=== PATIENT | female | born 1950 | race Caucasian/White ===

== ENCOUNTER 2017-04-28 07:23 | Observation (INO) ==
[2017-04-28] MEDS ORDERED: 0.9 % Sodium Chloride 1,000 ML IVC ONE (07:26)
--- NOTE | 2017-04-28 07:29 | Emergency Department Note ---
Disposition Clinical Impression: Near syncope, Bradycardia Disposition: Admitted As Inpatient Condition: Good General Adult HPI - General Chief complaint: ED Neuro Symptoms/Deficit Stated complaint: tingling hands/feet Time Seen by Provider: 04/28/17 07:25 Nursing Notes Reviewed: Yes Vital Signs Reviewed: Yes - Related Data Home Medications Medication Instructions Recorded Confirmed Carvedilol [Coreg] 25 mg PO DAILY 04/28/17 04/28/17 Escitalopram [Lexapro] 20 mg PO DAILY 04/28/17 04/28/17 Omeprazole [PriLOSEC] 20 mg PO DAILY 04/28/17 04/28/17 Allergies Allergy/AdvReac Type Severity Reaction Status Date / Time aspirin Allergy Hives Verified 04/28/17 10:16 Penicillins [PCN] Allergy Hives Verified 04/28/17 10:16 Past Medical History - Past Medical History Medical history: Reports: asthma Psychiatric history: Reports: no psych history - Social History Smoking Status: Never smoker Smokeless Tobacco Status: No Alcohol use: Reports: none Drug use: Reports: none Course Vital Signs Temperature 97.4 F L 04/28/17 07:26 Pulse Rate 51 04/28/17 07:26 Respiratory Rate 16 04/28/17 07:26 Blood Pressure 129/65 04/28/17 07:26 O2 Sat by Pulse Oximetry 94 04/28/17 07:26 Temperature 97.4 F L 04/28/17 07:26 Pulse Rate 58 04/28/17 10:05 Respiratory Rate 16 04/28/17 10:13 Blood Pressure 166/86 04/28/17 10:13 O2 Sat by Pulse Oximetry 94 04/28/17 10:05 Oxygen Delivery Oxygen Delivery Room Air Medical Decision Making - MDM Narrative Medical decision making narrative: I examined this patient and my medical decision-making was reviewed with the FROG FARMER/PA/Advanced Practice Nurse/Resident Physician. I agree with the documented findings, disposition and treatment plan as described except to the extent set forth below. Patient was seen on arrival by EMS with Dr. Craft and myself, I agree with his evaluation and management plan, supervise care the patient's stay. She presents from work today she has had some tingling feeling going on her left side but she says also on her other side is benign on for a couple days. Had some fluttering noted on her EKG and patient admits to that but denies chest pain. She is up and ambulatory now. We will do a further exam EKG she may need some imaging and lab work. We will reassess her and the determine best workup. She is in agreement with this plan. 0800 hrs.: Patient was able to walk to the bathroom she said she felt a little weak. When she sat back down should her heart rate went into the 40s. She has had an echocardiogram in the past which looked normal. She does not remember having this done. She is also per lead a thyroid workup cannot find results of that. We will workup here most likely for admission for near syncope and symptomatically bradycardia. She is in agreement with this plan. Chest X-Ray 04/28/17 07:29 IMPRESSION: The chest appears clear without acute cardiopulmonary process. Stable appearing small to moderate-sized hiatal hernia. D/ / Adrian Mo MD / Adrian Mo MD Interpreting Provider: Adrian Mo MD Head CT 04/28/17 07:36 IMPRESSION: 1. No acute intracranial abnormality. D/ / Jacob Zapien MD / Jacob Zapien MD Interpreting Provider: Jacob Zapien MD - Lab Data Result diagrams: 04/28/17 07:53 04/28/17 07:53 Lab Results 04/28/17 04/28/17 04/28/17 Range/Units 07:37 07:53 07:53 WBC 11.4 H (4.3-11.1) K/mcL RBC 5.25 H (3.82-4.97) M/mcL Hgb 14.8 (11.5-15.4) g/dL Hct 45.9 H (35.3-44.9) % MCV 87.4 (83.0-100.0) fL MCH 28.2 (28.0-33.3) pg MCHC 32.2 (31.6-35.5) g/dL RDW 14.2 (11.5-14.5) % Plt Count 320 (140-400) K/mcL MPV 11.0 (9.4-12.4) fL Immature Gran % 0.3 (0-4) % Seg Neutrophils % 61.5 % Lymphocytes % 27.9 % Monocytes % 7.0 % Eosinophils % 2.8 % Basophils % 0.5 % Neutrophils # 7.0 (1.6-8.9) K/mcL Lymphocytes # 3.2 (0.6-4.6) K/mcL Monocytes # 0.8 (0.0-1.3) K/mcL Eosinophils # 0.3 (0.0-0.6) K/mcL Basophils # 0.1 (0.0-0.2) K/mcL PT 12.4 H (9.4-12.1) Seconds INR 1.1 APTT 27.4 (26.0-36.0) Seconds Sodium (136-145) mEq/L Potassium (3.5-4.5) mEq/L Chloride (98-109) mEq/L Carbon Dioxide (19-29) mEq/L BUN (7-20) mg/dL Creatinine (0.57-1.11) mg/dL Est GFR ( Amer) (> 60) Est GFR (Non-Af Amer) (> 60) BUN/Creatinine Ratio (6-26) Glucose (70-99) mg/dL POC Glucose 122 H (58-89) Calculated Osmolality (280-300) Calcium (8.6-10.8) mg/dL Magnesium (1.6-2.6) mg/dL Troponin I (0-0.03) ng/mL TSH (0.350-4.840) mcIU/mL 04/28/17 04/28/17 Range/Units 07:53 07:53 WBC (4.3-11.1) K/mcL RBC (3.82-4.97) M/mcL Hgb (11.5-15.4) g/dL Hct (35.3-44.9) % MCV (83.0-100.0) fL MCH (28.0-33.3) pg MCHC (31.6-35.5) g/dL RDW (11.5-14.5) % Plt Count (140-400) K/mcL MPV (9.4-12.4) fL Immature Gran % (0-4) % Seg Neutrophils % % Lymphocytes % % Monocytes % % Eosinophils % % Basophils % % Neutrophils # (1.6-8.9) K/mcL Lymphocytes # (0.6-4.6) K/mcL Monocytes # (0.0-1.3) K/mcL Eosinophils # (0.0-0.6) K/mcL Basophils # (0.0-0.2) K/mcL PT (9.4-12.1) Seconds INR APTT (26.0-36.0) Seconds Sodium 139 (136-145) mEq/L Potassium 3.9 (3.5-4.5) mEq/L Chloride 107 (98-109) mEq/L Carbon Dioxide 21 (19-29) mEq/L BUN 26 H (7-20) mg/dL Creatinine 0.98 (0.57-1.11) mg/dL Est GFR ( Amer) > 60 (> 60) Est GFR (Non-Af Amer) 56 L (> 60) BUN/Creatinine Ratio 27 H (6-26) Glucose 117 H (70-99) mg/dL POC Glucose (58-89) Calculated Osmolality 294 (280-300) Calcium 9.4 (8.6-10.8) mg/dL Magnesium 1.6 (1.6-2.6) mg/dL Troponin I 0.01 (0-0.03) ng/mL TSH 2.299 (0.350-4.840) mcIU/mL
[2017-04-28] MEDS ORDERED: Ipratropium/Albuterol Neb 3 ML IH ONE (07:49)
--- NOTE | 2017-04-28 07:52 | Emergency Department Note ---
Disposition Clinical Impression: Near syncope, Bradycardia Disposition: Admitted As Inpatient Condition: Good Referrals: Bruce Bolden MD [Primary Care Provider] - Forms: ED Satisfaction Letter General Adult HPI - General Chief complaint: ED Neuro Symptoms/Deficit Stated complaint: tingling hands/feet Time Seen by Provider: 04/28/17 07:25 Source: patient, EMS Limitations: no limitations Nursing Notes Reviewed: Yes Vital Signs Reviewed: Yes - History of Present Illness HPI Narrative: Patient here for evaluation of dizziness and near syncope. Patient states that she has been dealing with multiple complaints over the last several months or which include some left-sided paresthesias as well as shortness of breath with exertion. She is followed up with her family physician and they have been unable to find an explanation for all of these. She was working today when she felt very weak in her legs bilaterally. She is going to pass out. Squad was called and she was brought to the emergency department for further evaluation. Upon arrival the patient needed to use the bathroom for an episode of diarrhea. She was placed back on the monitor she was found to be bradycardic with a heart rate in the mid 40s. Patient states that she was having similar symptoms as to previously. Dizziness and lightheadedness occurred on her way back from the bathroom. Patient's diarrhea has only been for second episode and described as loose stool that is not bright red or black in nature. Pain Scale: 0 - Related Data Home Medications Medication Instructions Recorded Confirmed Carvedilol [Coreg] 25 mg PO DAILY 04/28/17 04/28/17 Escitalopram [Lexapro] 20 mg PO DAILY 04/28/17 04/28/17 Omeprazole [PriLOSEC] 20 mg PO DAILY 04/28/17 04/28/17 Allergies Allergy/AdvReac Type Severity Reaction Status Date / Time aspirin Allergy Hives Verified 04/28/17 08:48 Penicillins [PCN] Allergy Hives Verified 04/28/17 08:48 Review of Systems: CONSTITUTIONAL: No weight loss, fever, chills, weakness or fatigue. HEENT: Eyes: No visual changes. Ears, Nose, Throat: No hearing loss, difficulty talking or unable to swallow. SKIN: No rash or itching. CARDIOVASCULAR: near syncope. dizziness. No chest pain, chest pressure or chest discomfort. No palpitations or edema. RESPIRATORY: shortness of breath with exertion. No cough or sputum. GASTROINTESTINAL: No anorexia, nausea, vomiting or diarrhea. No abdominal pain or blood. GENITOURINARY: No burning on urination or hematuria. NEUROLOGICAL: No headache,paralysis, ataxia, numbness or tingling in the extremities. No change in bowel or bladder control. MUSCULOSKELETAL: No muscle pain, back pain, joint pain or stiffness. Past Medical History - Past Medical History Medical history: Reports: asthma Psychiatric history: Reports: no psych history - Social History Smoking Status: Never smoker Smokeless Tobacco Status: No Alcohol use: Reports: none Drug use: Reports: none Physical Exam General appearance: NAD, conversant Eyes: anicteric sclerae, moist conjunctivae; PERRL HENT: Atraumatic; oropharynx clear with moist mucous membranes and no mucosal ulcerations Neck: Normal inspection; Trachea midline; FROM, supple Lungs: CTA, with normal respiratory effort and no intercostal retractions CV: RRR, no MRGs Abdomen: Soft, non-tender; no rebound or gaurding Extremities: No peripheral edema or extremity lymphadenopathy Skin: Normal temperature; no rash, ulcers or lesions Psych: Appropriate mood and affect Neuro: alert and oriented to person, place and time - General Limitations: no limitations General appearance: alert, in no apparent distress - Expanded Neurological Exam Patient oriented to: Present: person, place, time Speech: Present: fluid speech Cranial nerves: EOM function (II, III, IV, ): Normal, facial sensation (V): Normal, facial palsy (VII): Normal, gag reflex (IX): Normal, spinal accessory function (XI): Normal, tongue deviation (XII): Normal Cerebellar function: finger to nose: Normal, heel to murcia: Normal Cerebellar function: normal gait Motor strength - LUE: 5/5 Motor strength - RUE: 5/5 Motor strength - LLE: 5/5 Motor strength - RLE: 5/5 Sensory exam upper extremity: light touch: Abnormal Left Sensory exam lower extremity: light touch: Abnormal Left Coma Scale Eye Opening: Spontaneous Coma Scale Motor Response: Obeys Commands Coma Scale Verbal Response: Oriented Coma Scale Total: 15 - Psychiatric Psychiatric exam: Present: normal affect, normal mood - Skin Skin exam: Present: warm, dry Course - Reevaluation(s) Reevaluation #1: Patient's workup which had been extended to include all of her chief complaints has been relatively unfruitful except for her EKG showing sinus bradycardia and having a bradycardic episode replication of her symptoms. Paresthesias cannot be related to any sort of intracranial abnormality on CT. Patient states she has not had any previous cardiac workup. Patient will be admitted to the hospital for further evaluation of near syncopal episode as well as associated bradycardia. - Consultations Consultation #1: Discussed with Dr. Larsen. Patient accepted for admission. Vital Signs Temperature 97.4 F L 04/28/17 07:26 Pulse Rate 51 04/28/17 07:26 Respiratory Rate 16 04/28/17 07:26 Blood Pressure 129/65 04/28/17 07:26 O2 Sat by Pulse Oximetry 94 04/28/17 07:26 Temperature 97.4 F L 04/28/17 07:26 Pulse Rate 51 04/28/17 07:26 Respiratory Rate 16 04/28/17 07:26 Blood Pressure 129/65 04/28/17 07:26 O2 Sat by Pulse Oximetry 94 04/28/17 07:26 Oxygen Delivery Oxygen Delivery Room Air Medical Decision Making - Medical Records Medical records reviewed: Yes I reviewed the patient's medical records. - Lab Data Lab results reviewed: Yes I reviewed the patient's lab results. Result diagrams: 04/28/17 07:53 04/28/17 07:53 Lab Results 04/28/17 04/28/17 04/28/17 Range/Units 07:37 07:53 07:53 WBC 11.4 H (4.3-11.1) K/mcL RBC 5.25 H (3.82-4.97) M/mcL Hgb 14.8 (11.5-15.4) g/dL Hct 45.9 H (35.3-44.9) % MCV 87.4 (83.0-100.0) fL MCH 28.2 (28.0-33.3) pg MCHC 32.2 (31.6-35.5) g/dL RDW 14.2 (11.5-14.5) % Plt Count 320 (140-400) K/mcL MPV 11.0 (9.4-12.4) fL Immature Gran % 0.3 (0-4) % Seg Neutrophils % 61.5 % Lymphocytes % 27.9 % Monocytes % 7.0 % Eosinophils % 2.8 % Basophils % 0.5 % Neutrophils # 7.0 (1.6-8.9) K/mcL Lymphocytes # 3.2 (0.6-4.6) K/mcL Monocytes # 0.8 (0.0-1.3) K/mcL Eosinophils # 0.3 (0.0-0.6) K/mcL Basophils # 0.1 (0.0-0.2) K/mcL PT 12.4 H (9.4-12.1) Seconds INR 1.1 APTT 27.4 (26.0-36.0) Seconds Sodium (136-145) mEq/L Potassium (3.5-4.5) mEq/L Chloride (98-109) mEq/L Carbon Dioxide (19-29) mEq/L BUN (7-20) mg/dL Creatinine (0.57-1.11) mg/dL Est GFR ( Amer) (> 60) Est GFR (Non-Af Amer) (> 60) BUN/Creatinine Ratio (6-26) Glucose (70-99) mg/dL POC Glucose 122 H (58-89) Calculated Osmolality (280-300) Calcium (8.6-10.8) mg/dL Magnesium (1.6-2.6) mg/dL Troponin I (0-0.03) ng/mL 04/28/17 04/28/17 Range/Units 07:53 07:53 WBC (4.3-11.1) K/mcL RBC (3.82-4.97) M/mcL Hgb (11.5-15.4) g/dL Hct (35.3-44.9) % MCV (83.0-100.0) fL MCH (28.0-33.3) pg MCHC (31.6-35.5) g/dL RDW (11.5-14.5) % Plt Count (140-400) K/mcL MPV (9.4-12.4) fL Immature Gran % (0-4) % Seg Neutrophils % % Lymphocytes % % Monocytes % % Eosinophils % % Basophils % % Neutrophils # (1.6-8.9) K/mcL Lymphocytes # (0.6-4.6) K/mcL Monocytes # (0.0-1.3) K/mcL Eosinophils # (0.0-0.6) K/mcL Basophils # (0.0-0.2) K/mcL PT (9.4-12.1) Seconds INR APTT (26.0-36.0) Seconds Sodium 139 (136-145) mEq/L Potassium 3.9 (3.5-4.5) mEq/L Chloride 107 (98-109) mEq/L Carbon Dioxide 21 (19-29) mEq/L BUN 26 H (7-20) mg/dL Creatinine 0.98 (0.57-1.11) mg/dL Est GFR ( Amer) > 60 (> 60) Est GFR (Non-Af Amer) 56 L (> 60) BUN/Creatinine Ratio 27 H (6-26) Glucose 117 H (70-99) mg/dL POC Glucose (58-89) Calculated Osmolality 294 (280-300) Calcium 9.4 (8.6-10.8) mg/dL Magnesium 1.6 (1.6-2.6) mg/dL Troponin I 0.01 (0-0.03) ng/mL - Radiology Data Radiology results reviewed: Yes I reviewed the patient's radiology results. - EKG Data EKG #1 EKG attestation: Yes I reviewed and interpreted this EKG. EKG results narrative: EKG shows sinus bradycardia with ventricular rate of 50 bpm. DC interval 149. QRS 95. QTC 428. Patient has no significant ST elevations or depressions. Patient has no findings changed from previous EKG of 10/04/2016
[2017-04-28 08:00] LABS: Basophils # 0.1 K/mcL (0.0-0.2); Basophils % 0.5 %; Eosinophils # 0.3 K/mcL (0.0-0.6); Eosinophils % 2.8 %; Hematocrit 45.9 % (35.3-44.9); Hemoglobin 14.8 g/dL (11.5-15.4); Immature Granulocytes % 0.3 % (0-4); Lymphocytes # 3.2 K/mcL (0.6-4.6); Lymphocytes % 27.9 %; Mean Corpuscular HGB Conc 32.2 g/dL (31.6-35.5); Mean Corpuscular Hemoglobin 28.2 pg (28.0-33.3); Mean Corpuscular Volume 87.4 fL (83.0-100.0); Monocytes # 0.8 K/mcL (0.0-1.3); Platelet Count 320 K/mcL (140-400); Red Blood Count 5.25 M/mcL (3.82-4.97); Red Cell Distribution Width 14.2 % (11.5-14.5); Segmented Neutrophils % 61.5 %
[2017-04-28 08:06] LABS: INR 1.1; Prothrombin Time 12.4 Seconds (9.4-12.1)
[2017-04-28 08:08] LABS: Activated Partial Thrombo Time 27.4 Seconds (26.0-36.0)
[2017-04-28 08:19] LABS: BUN/Creatinine Ratio 27 (6-26); Blood Urea Nitrogen 26 mg/dL (7-20); Calcium 9.4 mg/dL (8.6-10.8); Carbon Dioxide 21 mEq/L (19-29); Chloride 107 mEq/L (98-109); Glucose 117 mg/dL (70-99); Magnesium 1.6 mg/dL (1.6-2.6); Osmolality,Calculated 294 (280-300); Potassium 3.9 mEq/L (3.5-4.5); Sodium 139 mEq/L (136-145); eGFR For African Americans > 60 (> 60); eGFR For Non-African Americans 56 (> 60)
[2017-04-28 08:41] LABS: Thyroid Stimulating Hormone 2.299 mcIU/mL (0.350-4.840)
[2017-04-28] MEDS ORDERED: Ondansetron 4 MG/2 ML VIAL IVP PRN (09:55)
[2017-04-28] MEDS ORDERED: Acetaminophen 325 MG TABLET PO PRN (09:55)
[2017-04-28] MEDS ORDERED: Naloxone 0.4 MG/ML INJ IVP PRN (09:55)
--- NOTE | 2017-04-28 10:08 | Internal Med History&Physical ---
Date of Encounter: 04/28/17 Time of Encounter: 09:30 Assessment and Plan (1) Near syncope Current visit: Yes Status: Acute She was working this morning when she felt very weak in her legs and thought she was going to pass out. no chest pain. no diaphoriessi. no headaches. She reports a history of left-sided numbness and dyspnea in exertion for the past few months. In our ED, she went to use the bathroom and when she came back she was bradycardic in the 40s. She takes carvedilol. No bleeding. two loose bowel movements today. EKG reviewed by me, shows SB hr 51. negative troponins. CT head negative. CXR reviewed by med, shows only small to moderate hiatal hernia. Stop home dose coreg. better BP control. check: telemetry. serial troponins. echocardiogram. doppler of carotids. stress test. ct cervical spine, thoracic and lumbar. (2) Bradycardia Current visit: Yes Status: Acute plan as above. (3) HTN (hypertension) Current visit: Yes Status: Chronic uncontrolled htn. hydralazine prn. start lisinopril. Qualifiers: Hypertension type: essential hypertension Qualified Code(s): I10 - Essential (primary) hypertension (4) Left sided numbness Current visit: Yes Status: Chronic ct cervical, thoracic and lumbar spine ordered. (5) COPD (chronic obstructive pulmonary disease) Current visit: Yes Status: Acute second hand smoker. duonebs. Qualifiers: COPD type: chronic bronchitis Chronic bronchitis type: simple Qualified Code(s): J41.0 - Simple chronic bronchitis Internal Medicine - H&P: HPI Chief complaint: near-syncopal episode this morning Admitted From: Home Plans for Post Hospital Care: Home History of present illness: Ms. Bello is a 67 year old female with past medical history of HTN and asthma/ copd who comes after an episode of dizziness. For the past 6 weeks, she has had numbness and tingliness in her left arm and leg with associated lumbar back pain and shortness of breath on exertion. She went to see his doctor and was told that she may need an MRI of her spine but no test was ordered yet. 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 She thought she was going to pass out so EMS was called and she came to our ED. no chest pain. no cough. no diaphoresis. no headaches. She took her home meds at 6am today, including her carvedilol. In our ED, she went to use the bathroom and when she came back she was bradycardic in the 40s. No bleeding. two loose bowel movements today. EKG showed sinus bradycardia HR 51. Past Med Surg Social Fam HX - Past Medical History Medical history: asthma Psychiatric history: no psych history - Social History Smoking Status: Never smoker Smokeless Tobacco Status: No Alcohol use: none Drug use: none - Family History Mother Hx Family Cardiac Disorders: Yes Internal Medicine - H&P: Meds Carvedilol [Coreg] 25 mg PO DAILY 04/28/17 [History] Escitalopram [Lexapro] 20 mg PO DAILY 04/28/17 [History] Omeprazole [PriLOSEC] 20 mg PO DAILY 04/28/17 [History] Allergies aspirin Allergy (Verified 04/28/17 10:16) Hives Penicillins [PCN] Allergy (Verified 04/28/17 10:16) Hives HIVES All Systems PM: A 10-system review of systems was performed and is negative for pertinent findings except as documented above in the HPI. - Constitutional Vitals: Temp Pulse Resp BP Pulse Ox 97.4 F L 56 16 198/87 95 04/28/17 07:26 04/28/17 09:14 04/28/17 09:14 04/28/17 09:14 04/28/17 09:14 General appearance: Present: cooperative, A&O X 3, pleasant, no acute distress, obese, answers questions appropriately - Neck Neck exam general surgery: Present: supple, trachea midline. Absent: lymphadenopathy - Respiratory Respiratory exam: Present: CTAB - Cardiovascular Cardiovascular exam: Present: bradycardia, systolic murmur (aortic) - GI/Abdominal GI/Abdominal exam: Present: normal bowel sounds, soft. Absent: distended, tenderness - Extremities Exam Extremities exam: Absent: pedal edema - Back Exam Back exam: Absent: CVA tenderness (L), CVA tenderness (R) Additional comments: sacral tenderness. no skin lesions. - Neurological Exam Neurological exam: Present: alert, oriented X3, no focal deficits, strengths equal and symetr throughout. Absent: facial droop, speech deficit Additional comments: gait not assessed. - Skin Skin exam: Absent: rash Internal Med - H&P Results - Labs CBC & Chem 7: 04/28/17 07:53 04/28/17 07:53
[2017-04-28] MEDS: Ipratropium/Albuterol Neb 3 ML IH SCH ×3 (11:29→23:47)
[2017-04-28] MEDS: *HR* HYDROcodone/Acet 5/325 mg TABLET PO PRN ×2 (11:34→21:20)
--- NOTE | 2017-04-28 16:34 | Electrocardiograph Report ---
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
[2017-04-29] MEDS: Ipratropium/Albuterol Neb 3 ML IH SCH ×4 (04:25→23:46)
[2017-04-29 05:37] LABS: Basophils % 0.4 %; Eosinophils # 0.4 K/mcL (0.0-0.6); Eosinophils % 3.2 %; Hematocrit 40.1 % (35.3-44.9); Immature Granulocytes % 0.3 % (0-4); Lymphocytes # 4.3 K/mcL (0.6-4.6); Lymphocytes % 39.4 %; Mean Corpuscular HGB Conc 32.7 g/dL (31.6-35.5); Mean Corpuscular Hemoglobin 28.8 pg (28.0-33.3); Mean Corpuscular Volume 88.1 fL (83.0-100.0); Mean Platelet Volume 11.4 fL (9.4-12.4); Monocytes # 0.9 K/mcL (0.0-1.3); Monocytes % 8.3 %; Neutrophils # 5.3 K/mcL (1.6-8.9); Platelet Count 248 K/mcL (140-400); Red Blood Count 4.55 M/mcL (3.82-4.97); Red Cell Distribution Width 14.7 % (11.5-14.5); Segmented Neutrophils % 48.4 %
[2017-04-29 05:38] LABS: Hemoglobin 13.1 g/dL (11.5-15.4)
[2017-04-29 05:53] LABS: BUN/Creatinine Ratio 25 (6-26); Blood Urea Nitrogen 20 mg/dL (7-20); Calcium 8.7 mg/dL (8.6-10.8); Carbon Dioxide 22 mEq/L (19-29); Chloride 109 mEq/L (98-109); Chol/HDL Ratio 4.9 (0-4.9); Cholesterol 238 mg/dL (< 200); Glucose 91 mg/dL (70-99); HDL Cholesterol 49 mg/dL (40-59); LDL Cholesterol,Calculated 159 mg/dL (0-99); Magnesium 1.7 mg/dL (1.6-2.6); Osmolality,Calculated 292 (280-300); Potassium 3.5 mEq/L (3.5-4.5); Sodium 140 mEq/L (136-145); Triglycerides 152 mg/dL (< 150); eGFR For African Americans > 60 (> 60); eGFR For Non-African Americans > 60 (> 60)
[2017-04-29] MEDS ORDERED: Regadenoson 0.4 MG/5 ML SYRINGE IVP ONE (06:25)
[2017-04-29] MEDS: *HR* HYDROcodone/Acet 5/325 mg TABLET PO PRN ×4 (07:46→23:58)
--- NOTE | 2017-04-29 08:31 | Vascular/Endovasc Consult Note ---
Date of Encounter: 04/29/17 Time of Encounter: 07:40 Assessment and Plan (1) Carotid stenosis Status: Chronic The pathophysiology and natural history of carotid stenosis was discussed with the patient and all questions were answered. The patient has an 80-99% right internal carotid artery stenosis by duplex. She presented with left sided parasthesias in her upper and lower extremity as well as dizziness. Her dizziness has resolved. However, she still has left upper extremity parasthesias. Her motor exam is intact. An MRI is recommended to rule out acute stroke. The patient will likely require a right carotid endarterectomy if her MRI confirms a CVA. The risks, benefits and alternatives were discussed and all questions were answered. Qualifiers: Laterality: bilateral Qualified Code(s): I65.23 - Occlusion and stenosis of bilateral carotid arteries (2) Mixed hyperlipidemia Status: Chronic She was counseled regarding athersclerotic risk factor reduction. (3) HTN (hypertension) Status: Chronic Qualifiers: Hypertension type: essential hypertension Qualified Code(s): I10 - Essential (primary) hypertension - History of Present Illness Consult date: 04/29/17 Requesting physician: Kiana Wilson Consult reason: carotid stenosis Chief complaint: dizziness, left sided parasthesias History of present illness: Ms. Bello is a 67 year old female who presented to [facility] ER with complaints of bilateral lower extremity weakness and symptoms of presyncope. She denies any loss of consciousness. She reports that she has had intermittent dizziness on almost a daily basis. The patient Also reports a history of left sided parasthesias, particularly in the hand and fingers, but occasionally in the left lower extremity as well. The patient was admitted to [facility] and as part of her evaluation she underwent a carotid duplex. The duplex was noted to be abnormal so vascular surgery was consulted for further evaluation. At the time of evaluation she reports that she is comfortable. She denies any dizziness. She denies prior symptoms of amaurosis fugax. She reports mild parasthesias in her fingertips. She denies chest pain or shortness of breath. Past Med Surg Social Fam HX - Past Medical History Medical history: asthma Psychiatric history: no psych history - Social History Smoking Status: Never smoker Smokeless Tobacco Status: No Alcohol use: none Drug use: none - Family History Mother Hx Family Cardiac Disorders: Yes Hx Family Cancer: Yes (ovary) Father Hx Family Cancer: Yes (liver) Hx Family Endocrine Disorder: Yes Medications and Allergies Carvedilol [Coreg] 25 mg PO DAILY 04/28/17 [History] Escitalopram [Lexapro] 20 mg PO DAILY 04/28/17 [History] Omeprazole [PriLOSEC] 20 mg PO DAILY 04/28/17 [History] Atorvastatin [Lipitor] 40 mg PO HS #30 tablet 05/01/17 [Rx] Clopidogrel [Plavix] 75 mg PO DAILY #30 tablet 05/01/17 [Rx] Lisinopril [Zestril] 20 mg PO DAILY 30 Days 05/01/17 [Rx] amLODIPine [Norvasc] 10 mg PO DAILY 30 Days 05/01/17 [Rx] Allergies aspirin Allergy (Verified 04/28/17 10:16) Hives Penicillins [PCN] Allergy (Verified 04/28/17 10:16) Hives HIVES All Systems Review: A 10-system review of systems was performed and is negative for pertinent findings except as documented above in the HPI. - Constitutional Constitutional: no chills, no fever(s) - Cardiovascular Cardiovascular: no chest pain at rest, no chest pain with exertion, no dyspnea at rest, no dyspnea on exertion Exam Vital Signs, Last 4 Hours Pulse 04/29/17 04:30 66 General: Present: Conversant, No Apparent Distress HEENT: Present: Atraumatic, Normocephaly, Trachea midline, Pupils equal Neck: Present: Left Carotid bruit, Right Carotid bruit. Absent: JVD, Lymphadenopathy Cardiac: Present: Reg Rate and Rhythm, Normal S1 and S2 Lungs: Present: Normal Breath Sounds, No Wheeze, Rales, Rhonchi Neuro: Present: Alert and responsive, No focal deficits noted, Motor nerves grossly intact, Sensory nerves grossly intact (except complains of left finger tip parasthesias) Abdomen: Present: Soft, Non-tender. Absent: Masses Vascular: Present: Normal capillary refill, Pulse, normal. Absent: Clubbing, Cyanosis, Edema Skin: Present: No rashes noted on visualized skin Musculoskeletal: Present: No Chest Wall Tenderness Consult Discharge Plan - Plan Instructions: Peripheral Vascular Disorders (DC), Chronic Obstructive Pulmonary Disease (DC), Chronic Hypertension (DC) Additional Instructions: 1. Follow-up with your primary care provider in the next 3-5 days 2. Take all prescriptions as prescribed, any concerns or questions contact her primary care provider. 3. Return to the emergency department if: He experienced concerning medical symptoms or signs including return of dizziness episodes, falling, any return of numbness tingling or weakness or any other signs of stroke including facial asymmetry, difficulty talking, difficulty swallowing, limb weakness or any numbness. 4. Follow-up with vascular surgery as scheduled. Referrals: Luciano Valdez MD [Partnered Physician] - 05/26/17 10:30 am Bruce Bolden MD [Primary Care Provider] - 05/07/17 10:00 am () Prescriptions: amLODIPine [Norvasc] 10 mg PO DAILY 30 Days Atorvastatin [Lipitor] 40 mg PO HS #30 tablet Clopidogrel [Plavix] 75 mg PO DAILY #30 tablet Lisinopril [Zestril] 20 mg PO DAILY 30 Days
--- NOTE | 2017-04-29 09:00 | Internal Med Progress Note ---
<Chato Ballesteros - Last Filed: 04/29/17 11:01> Date of Encounter: 04/29/17 Time of Encounter: 08:52 - Assessment and plan (1) Near syncope Current Visit: Yes Status: Acute Assessment and plan: Patient's presented with symptoms of weakness in her legs and a feeling that she is going to pass out, is not experiencing dizziness for roughly 5 months and numbness and tingling in her left upper and lower extremity more recently. Upon presentation she was bradycardic with a heart rate in the 50s with a low in the 40s. Her Coreg was held. - No signs of bleeding, troponins were negative, EKG demonstrated sinus bradycardia with heart rate of 51. Imaging studies: CT of the lumbar, thoracic, cervical spine without correlating findings. CT of the brain without any acute findings. CTA reviewed and vascular surgery involvements. Given findings on the CTA the patient undergo right-sided carotid endarterectomy. Syncopal episode possibly secondary to right-sided carotid pathology - Patient is likely to undergo carotid endarterectomy tomorrow. Plan: - Nuclear med stress test results still pending - MRI of the brain ordered - Continue cardiac monitoring - Continue to hold beta shante - Blood pressure control with the addition of lisinopril - Patient was started on Lipitor with elevated triglycerides and cholesterol - Nothing by mouth after midnight (2) Bradycardia Current Visit: Yes Status: Acute Assessment and plan: Likely secondary to Coreg. Heart rate is stable after discontinuation of Coreg. Plan: -Hold beta blockers - Continue cardiac monitoring (3) HTN (hypertension) Current Visit: Yes Status: Chronic Assessment and plan: Patient is a known history of hypertension with elevated systolic blood pressure up to 200. - Currently hypertensive Plan: - Hold IV fluids - Start lisinopril 20 mg by mouth daily - Hydralazine 5 mg IV every 6 hours when necessary for systolic blood pressure greater than 160 - Low sodium diet Qualifiers: Hypertension type: essential hypertension Qualified Code(s): I10 - Essential (primary) hypertension (4) Left sided numbness Current Visit: Yes Status: Chronic Assessment and plan: Patient had resolution of left-sided numbness, neurologic exam was significant for hyperreflexia bilateral lower extremities and 2-3 beats of clonus in the left patellar and Achilles reflex. - This may be related to her right carotid pathology. - Brain MRI still pending (5) COPD (chronic obstructive pulmonary disease) Current Visit: Yes Status: Acute Assessment and plan: Stable. Continue home inhalers and respiratory treatment. Qualifiers: COPD type: chronic bronchitis Chronic bronchitis type: simple Qualified Code(s): J41.0 - Simple chronic bronchitis (6) Carotid stenosis Current Visit: Yes Status: Chronic Assessment and plan: As discussed above. Qualifiers: Laterality: bilateral Qualified Code(s): I65.23 - Occlusion and stenosis of bilateral carotid arteries - Subjective Interval history: Mrs. Bello 59-year-old female has been seen and evaluated patient bedside this morning. She is alert awake oriented interactive in no acute distress and just returned from a stress test. She denies any numbness or tingling currently but did have some numbness and tingling in her left lower extremity while down at the stress test. She said that the numbness and tingling in her left arm and left leg have been new over the last couple days but the dizziness that she has is been going on for roughly 5 months. She denies any other neurologic symptoms including blacking out, change in vision, chest pain, palpitations, shortness of breath, abdominal pain nausea vomiting diarrhea constipation or any other concerns at this time. She follows commands appropriately and is alert and oriented 3. - Constitutional Vitals: Temp Pulse Resp BP Pulse Ox 98.2 F 66 16 169/85 93 04/29/17 03:49 04/29/17 04:30 04/29/17 04:26 04/29/17 03:49 04/29/17 04:26 General appearance: Present: cooperative, A&O X 3, pleasant, no acute distress, obese, answers questions appropriately Exam: General: Patient alert, awake, oriented 3, interactive, in no acute distress HEENT: Normocephalic, atraumatic, pupils equal reactive to light, nasal cavity pain and open septum median position, oral mucosa moist, uvula midline, neck supple trachea midline no palpable lymphadenopathy, no thyromegaly. Chest: Symmetric bilateral correlating with respiratory effort, effort nonlabored. Cardiac: Regular rate and rhythm, grade 3/6 systolic ejection murmur best appreciated over the left sternal border. no bruits appreciated bilateral carotids, Radial pulses 2+ bilateral, posterior tibial and dorsal pedal pulses 2 + bilateral. Respiratory: Clear to auscultation all lung javier Abdomen: Soft, nontender, positive bowel sounds, no palpable masses appreciated on examination Extremities: Symmetric bilateral, no erythema or edema, patient moving all 4 extremities spontaneously. Neurologic: Cranial nerves II through XII intact. Pupils are equal and reactive to light, EOMI Face symmetric, muscle strength symmetric bilateral upper and lower extremities. Finger to nose without abnormal coordination, patient demonstrates bilateral lower extremity hyperreflexia left side worse than right, left side patellar and Achilles 2-3 beat clonus with deep tendon reflex. Sensation symmetric bilateral upper and lower extremities. Internal Medicine: Result - Labs CBC & Chem 7: 04/29/17 04:57 04/29/17 04:57 Labs: Short CBC 04/29/17 Range/Units 04:57 WBC 10.9 (4.3-11.1) K/mcL Hgb 13.1 D (11.5-15.4) g/dL Hct 40.1 (35.3-44.9) % Plt Count 248 (140-400) K/mcL Neutrophils # 5.3 (1.6-8.9) K/mcL BMP 04/29/17 04:57 Sodium 140 Potassium 3.5 Chloride 109 Carbon Dioxide 22 BUN 20 Creatinine 0.79 Glucose 91 Calcium 8.7 Cardiac Enzymes 04/28/17 04/28/17 Range/Units 13:26 20:31 Troponin I 0.02 0.02 (0-0.03) ng/mL - ABG Interpretation ABG results: PT/INR, D-dimer PT 12.4 Seconds (9.4-12.1) H 04/28/17 07:53 - Impressions Impressions Cervical Spine CT 04/28/17 12:00 IMPRESSION: No acute fracture or malalignment of the cervical spine. Mild C4-5 disc degenerative changes with mild right greater than left neural foraminal narrowing but no significant spinal canal stenosis. D/ / 04/28/2017 13:20:11 Home Allred MD / santiago Interpreting Provider: Home Allred MD Lumbar Spine CT 04/28/17 12:00 IMPRESSION: 1. No acute abnormality in the lumbar spine. 2. Degenerative changes are detailed above. This is most significant at L4-5 where there is mild spinal canal stenosis. D/ / Noam Mclaughlin MD / Noam Mclaughlin MD Interpreting Provider: Noam Mclaughlin MD Thoracic Spine CT 04/28/17 12:00 IMPRESSION: 1. No acute osseous abnormality in the thoracic spine. 2. Mild multilevel degenerative disease in the mid and lower thoracic spine. 3. Moderate size sliding hiatal hernia. D/ / Rosy Lr MD / Rosy Lr MD Interpreting Provider: Rosy Lr MD Neck CTA 04/28/17 18:12 IMPRESSION: 1. No acute arterial abnormality in the neck. 2. Moderate to severe stenosis of the proximal right internal carotid artery measuring 25% per NASCET criteria. 3. Mild stenosis of the proximal left internal carotid artery measuring 25% per NASCET criteria. 4. No vertebral artery stenosis. D/ / Dinesh Zhu MD / Dinesh Zhu MD Interpreting Provider: Dinesh Zhu MD Consult Discharge Plan - Plan Referrals: Bruce Bolden MD [Primary Care Provider] - 05/07/17 10:00 am () <Kiana Wilson - Last Filed: 04/29/17 14:43> Date of Encounter: 04/29/17 - Assessment and plan (1) Near syncope Current Visit: Yes Status: Acute (2) Bradycardia Current Visit: Yes Status: Acute (3) HTN (hypertension) Current Visit: Yes Status: Chronic Qualifiers: Hypertension type: essential hypertension Qualified Code(s): I10 - Essential (primary) hypertension (4) Left sided numbness Current Visit: Yes Status: Chronic (5) COPD (chronic obstructive pulmonary disease) Current Visit: Yes Status: Acute Qualifiers: COPD type: chronic bronchitis Chronic bronchitis type: simple Qualified Code(s): J41.0 - Simple chronic bronchitis - Constitutional Vitals: Temp Pulse Resp BP Pulse Ox 98.3 F 64 16 174/89 95 04/29/17 11:10 04/29/17 11:10 04/29/17 11:10 04/29/17 11:10 04/29/17 11:10 Internal Medicine: Result - Labs CBC & Chem 7: 04/29/17 04:57 04/29/17 04:57 Labs: Short CBC 04/29/17 Range/Units 04:57 WBC 10.9 (4.3-11.1) K/mcL Hgb 13.1 D (11.5-15.4) g/dL Hct 40.1 (35.3-44.9) % Plt Count 248 (140-400) K/mcL Neutrophils # 5.3 (1.6-8.9) K/mcL BMP 04/29/17 04:57 Sodium 140 Potassium 3.5 Chloride 109 Carbon Dioxide 22 BUN 20 Creatinine 0.79 Glucose 91 Calcium 8.7 Cardiac Enzymes 04/28/17 Range/Units 20:31 Troponin I 0.02 (0-0.03) ng/mL - ABG Interpretation ABG results: PT/INR, D-dimer PT 12.4 Seconds (9.4-12.1) H 04/28/17 07:53 - Impressions Impressions Neck CTA 04/28/17 18:12 IMPRESSION: 1. No acute arterial abnormality in the neck. 2. Moderate to severe stenosis of the proximal right internal carotid artery measuring 25% per NASCET criteria. 3. Mild stenosis of the proximal left internal carotid artery measuring 25% per NASCET criteria. 4. No vertebral artery stenosis. D/ / Dinesh Zhu MD / Dinesh Zhu MD Interpreting Provider: Dinesh Zhu MD Brain MRI 04/29/17 08:31 IMPRESSION: No acute infarct. D/ / Isaiah Epperson MD / Isaiah Epperson MD Interpreting Provider: Isaiah Epperson MD - Attending Attestation I examined this patient and reviewed laboratory, imaging and all diagnostic data. My medical decision-making was reviewed with Dr Trev Ballesteros - Resident Physician. I agree with the documented findings, disposition and treatment plan as described above
[2017-04-29] MEDS ORDERED: Lisinopril 20 MG TABLET PO SCH (10:30)
--- NOTE | 2017-04-29 11:58 | Nuclear Medicine Stress Report ---
Regadenoson Nuclear Stress Name: Winifred Bello Date of Study: 04/29/2017 Date: 1950 Ht: 58.0 in Medical Record#: [id number] Age: 67 Wt: 161.0 lb Gender: Female Order #: [id number] Location: [facility] Room: [facility] Supervising Provider: Hira Dalton CNP Reading Physician: Girish Wood MD, [facility] Ordering Physician: Sheng Pelaez MD Primary Care Physician: Bruce Bolden MD Stress Technologist: Charles Boone CRT Acute Care Registered Nurse: Jesse Becerra Indications: Numbness of left side Impression: Gated LVEF > 70%. Perfusion imaging was negative for ischemia or infarct. History: Hypertension Stress Test Summary: Stress Test Type: Pharmacologic Baseline Information: Initial Heart Rate: 61 Blood Pressure: 132/74 Stress Information: Test Terminated Due to (primary): As per protocol Maximum Blood Pressure: 160/74 Maximum Heart Rate: 92 Percent Maximum Heart Rate Achieved: 71 Double Product: [id number] Symptoms: No chest symptoms Nuclear Summary: SPECT myocardial perfusion imaging using Tc99m Sestamibi given intravenously was performed at rest and following cardiac stress testing. The resting images were obtained following initial dose of 11.8 mCi. Following stress an additional dose of 33 mCi was given at peak exercise or 30 seconds post regadenoson infusion. Findings: Stress Note * Resting ECG demonstrated sinus rhythm, probable LVH. * No baseline arrhythmias were noted. * Patient had no chest pain during stress. * No arrhythmias were noted during stress. * No significant ECG changes with regadenoson. Hemodynamic responses * Normal hemodynamic responses to pharmacologic stress. Study Quality * Study quality is good. Gated EF > 70% * Gated LVEF > 70%. Left Ventricle * The left ventricle is not dilated. * Normal Segmental Perfusion in rest. * Normal segmental perfusion in stress. TID * No evidence of transient ischemic dilatation. Updated by Girish Wood MD, [facility] on 04/29/2017 11:53:27 AM electronically signed on 04/29/2017 11:53:51 AM with status of Final
[2017-04-30] MEDS: Ipratropium/Albuterol Neb 3 ML IH SCH ×6 (04:18→23:21)
[2017-04-30 06:03] LABS: Basophils % 0.5 %; Eosinophils # 0.5 K/mcL (0.0-0.6); Eosinophils % 5.2 %; Hematocrit 38.3 % (35.3-44.9); Hemoglobin 12.4 g/dL (11.5-15.4); Immature Granulocytes % 0.2 % (0-4); Lymphocytes # 3.4 K/mcL (0.6-4.6); Lymphocytes % 39.2 %; Mean Corpuscular HGB Conc 32.4 g/dL (31.6-35.5); Mean Corpuscular Hemoglobin 28.6 pg (28.0-33.3); Mean Corpuscular Volume 88.2 fL (83.0-100.0); Mean Platelet Volume 11.1 fL (9.4-12.4); Monocytes # 0.8 K/mcL (0.0-1.3); Monocytes % 9.2 %; Platelet Count 231 K/mcL (140-400); Red Blood Count 4.34 M/mcL (3.82-4.97); Red Cell Distribution Width 14.9 % (11.5-14.5); Segmented Neutrophils % 45.7 %
[2017-04-30 06:23] LABS: Alanine Aminotransferase 9 Units/L (0-55); Albumin 3.2 g/dL (3.5-5.0); Albumin/Globulin Ratio 1.2 (1.1-2.2); Alkaline Phosphatase 55 Units/L (38-126); Aspartate Amino Transferase 12 Units/L (5-34); BUN/Creatinine Ratio 30 (6-26); Bilirubin,Total 0.2 mg/dL (0.2-1.2); Blood Urea Nitrogen 27 mg/dL (7-20); Calcium 8.8 mg/dL (8.6-10.8); Carbon Dioxide 25 mEq/L (19-29); Chloride 110 mEq/L (98-109); Globulin 2.7 g/dL (2.4-3.5); Glucose 95 mg/dL (70-99); Osmolality,Calculated 299 (280-300); Potassium 3.9 mEq/L (3.5-4.5); Sodium 142 mEq/L (136-145); Total Protein 5.9 g/dL (6.0-8.3); eGFR For African Americans > 60 (> 60); eGFR For Non-African Americans > 60 (> 60)
[2017-04-30] MEDS: *HR* HYDROcodone/Acet 5/325 mg TABLET PO PRN ×4 (07:37→22:55)
--- NOTE | 2017-04-30 08:14 | Internal Med Progress Note ---
<Chato Ballesteros - Last Filed: 04/30/17 15:00> Date of Encounter: 04/30/17 Time of Encounter: 08:14 - Assessment and plan (1) Near syncope Current Visit: Yes Status: Acute Assessment and plan: Patient's presented with symptoms of weakness in her legs and a feeling that she is going to pass out, is not experiencing dizziness for roughly 5 months and numbness and tingling in her left upper and lower extremity more recently. Upon presentation she was bradycardic with a heart rate in the 50s with a low in the 40s. Her Coreg was held. - No signs of bleeding, troponins were negative, EKG demonstrated sinus bradycardia with heart rate of 51. Imaging studies: CT of the lumbar, thoracic, cervical spine without correlating findings. CT of the brain without any acute findings. CTA reviewed and vascular surgery involvements. Nuclear med stress without significant findings for ischemia, MRI of the brain without acute findings. Given findings on the CTA the patient is to undergo right-sided carotid endarterectomy in the outpatient setting. Syncopal episode possibly secondary to right-sided carotid pathology - Patient is likely to undergo carotid endarterectomy tomorrow. Plan: - Continue cardiac monitoring - Continue to hold beta shante with bradycardia - Blood pressure control with lisinopril and amlodipine - Patient was started on Lipitor with elevated triglycerides and cholesterol - Consult was placed to neurology, spoke with Dr. Grant and he recommended thoracic MRI, order placed. (2) Bradycardia Current Visit: Yes Status: Acute Assessment and plan: Resolved. Likely secondary to Coreg. Heart rate is stable after discontinuation of Coreg. Plan: -Hold beta blockers - Continue cardiac monitoring (3) HTN (hypertension) Current Visit: Yes Status: Chronic Assessment and plan: Patient is a known history of hypertension with elevated systolic blood pressure up to 220. - Currently hypertensive Plan: - Hold IV fluids - Continue lisinopril and amlodipine - Hydralazine 5 mg IV every 6 hours when necessary for systolic blood pressure greater than 160 - Low sodium diet Qualifiers: Hypertension type: essential hypertension Qualified Code(s): I10 - Essential (primary) hypertension (4) Left sided numbness Current Visit: Yes Status: Chronic Assessment and plan: Patient had resolution of left-sided numbness, neurologic exam was significant for hyperreflexia bilateral lower extremities and 2-3 beats of clonus in the left patellar and Achilles reflex. - This may be related to her right carotid pathology, but not definitive - Thoracic MRI ordered. - Neurology consult at and involved in patient's care. (5) COPD (chronic obstructive pulmonary disease) Current Visit: Yes Status: Acute Assessment and plan: Stable. Continue home inhalers and respiratory treatment. Qualifiers: COPD type: chronic bronchitis Chronic bronchitis type: simple Qualified Code(s): J41.0 - Simple chronic bronchitis (6) Carotid stenosis Current Visit: Yes Status: Chronic Assessment and plan: As discussed above. Qualifiers: Laterality: bilateral Qualified Code(s): I65.23 - Occlusion and stenosis of bilateral carotid arteries - Subjective Interval history: Mrs. Bello 59-year-old female has been seen and evaluated patient bedside this morning. She is alert awake oriented interactive in no acute distress and just returned from a stress test. She continues to have episodes of dizziness with ambulation. She denies continued weakness and numbness in her left extremities. She denies any new symptoms over night. She is upset about not having her endarterectomy inpatient and is worried about returning home and having recurrent symptoms. - Constitutional Vitals: Temp Pulse Resp BP Pulse Ox 98.4 F 68 16 160/70 99 04/30/17 04:28 04/30/17 07:43 04/30/17 04:56 04/30/17 04:28 04/30/17 04:56 General appearance: Present: cooperative, A&O X 3, pleasant, no acute distress, obese, answers questions appropriately Exam: General: Patient alert, awake, oriented 3, interactive, in no acute distress HEENT: Normocephalic, atraumatic, pupils equal reactive to light, nasal cavity pain and open septum median position, oral mucosa moist, uvula midline, neck supple trachea midline no palpable lymphadenopathy, no thyromegaly. Chest: Symmetric bilateral correlating with respiratory effort, effort nonlabored. Cardiac: Regular rate and rhythm, grade 3/6 systolic ejection murmur best appreciated over the left sternal border. no bruits appreciated bilateral carotids, Radial pulses 2+ bilateral, posterior tibial and dorsal pedal pulses 2 + bilateral. Respiratory: Clear to auscultation all lung javier Abdomen: Soft, nontender, positive bowel sounds, no palpable masses appreciated on examination Extremities: Symmetric bilateral, no erythema or edema, patient moving all 4 extremities spontaneously. Neurologic: Cranial nerves II through XII intact. Pupils are equal and reactive to light, EOMI Face symmetric, muscle strength symmetric bilateral upper and lower extremities. Finger to nose without abnormal coordination, patient demonstrates bilateral lower extremity hyperreflexia left side worse than right, left side patellar and Achilles 2-3 beat clonus with deep tendon reflex. Sensation symmetric bilateral upper and lower extremities. Internal Medicine: Result - Labs CBC & Chem 7: 04/30/17 05:49 04/30/17 05:49 Labs: Short CBC 04/30/17 Range/Units 05:49 WBC 8.7 (4.3-11.1) K/mcL Hgb 12.4 (11.5-15.4) g/dL Hct 38.3 (35.3-44.9) % Plt Count 231 (140-400) K/mcL Neutrophils # 4.0 (1.6-8.9) K/mcL BMP 04/30/17 05:49 Sodium 142 Potassium 3.9 Chloride 110 H Carbon Dioxide 25 BUN 27 H Creatinine 0.90 Glucose 95 Calcium 8.8 Liver Function 04/30/17 Range/Units 05:49 Total Bilirubin 0.2 (0.2-1.2) mg/dL AST 12 (5-34) Units/L ALT 9 (0-55) Units/L Alkaline Phosphatase 55 (38-126) Units/L Albumin 3.2 L (3.5-5.0) g/dL - ABG Interpretation ABG results: PT/INR, D-dimer PT 12.4 Seconds (9.4-12.1) H 04/28/17 07:53 - Impressions Impressions Cervical Spine CT 04/28/17 12:00 IMPRESSION: No acute fracture or malalignment of the cervical spine. Mild C4-5 disc degenerative changes with mild right greater than left neural foraminal narrowing but no significant spinal canal stenosis. D/ / 04/28/2017 13:20:11 Home Allred MD / santiago Interpreting Provider: Home Allred MD Brain MRI 04/29/17 08:31 IMPRESSION: No acute infarct. D/ / Isaiah Epperson MD / Isaiah Epperson MD Interpreting Provider: Isaiah Epperson MD Consult Discharge Plan - Plan Referrals: Bruce Bolden MD [Primary Care Provider] - 05/07/17 10:00 am () <Kiana Wilson - Last Filed: 04/30/17 16:31> Date of Encounter: 04/30/17 - Assessment and plan (1) Near syncope Current Visit: Yes Status: Acute (2) Bradycardia Current Visit: Yes Status: Acute (3) HTN (hypertension) Current Visit: Yes Status: Chronic Qualifiers: Hypertension type: essential hypertension Qualified Code(s): I10 - Essential (primary) hypertension (4) Left sided numbness Current Visit: Yes Status: Chronic (5) COPD (chronic obstructive pulmonary disease) Current Visit: Yes Status: Acute Qualifiers: COPD type: chronic bronchitis Chronic bronchitis type: simple Qualified Code(s): J41.0 - Simple chronic bronchitis - Constitutional Vitals: Temp Pulse Resp BP Pulse Ox 98.8 F 65 12 147/70 95 04/30/17 13:00 04/30/17 13:00 04/30/17 16:29 04/30/17 13:00 04/30/17 16:29 Internal Medicine: Result - Labs CBC & Chem 7: 04/30/17 05:49 04/30/17 05:49 Labs: Short CBC 04/30/17 Range/Units 05:49 WBC 8.7 (4.3-11.1) K/mcL Hgb 12.4 (11.5-15.4) g/dL Hct 38.3 (35.3-44.9) % Plt Count 231 (140-400) K/mcL Neutrophils # 4.0 (1.6-8.9) K/mcL BMP 04/30/17 05:49 Sodium 142 Potassium 3.9 Chloride 110 H Carbon Dioxide 25 BUN 27 H Creatinine 0.90 Glucose 95 Calcium 8.8 Liver Function 04/30/17 Range/Units 05:49 Total Bilirubin 0.2 (0.2-1.2) mg/dL AST 12 (5-34) Units/L ALT 9 (0-55) Units/L Alkaline Phosphatase 55 (38-126) Units/L Albumin 3.2 L (3.5-5.0) g/dL - ABG Interpretation ABG results: PT/INR, D-dimer PT 12.4 Seconds (9.4-12.1) H 04/28/17 07:53 - Impressions Impressions Neck CTA 04/28/17 18:12 IMPRESSION: 1. No acute arterial abnormality in the neck. 2. Moderate to severe stenosis of the proximal right internal carotid artery measuring 25% per NASCET criteria. 3. Mild stenosis of the proximal left internal carotid artery measuring 25% per NASCET criteria. 4. No vertebral artery stenosis. D/ / Dinesh Zhu MD / Dinesh Zhu MD Interpreting Provider: Dinesh Zhu MD Thoracic Spine MRI 04/30/17 08:42 IMPRESSION: 1. Mild multilevel degenerative disc disease noted in the thoracic spine, greatest at T12-L1, where there are associated endplate degenerative changes. 2. No evidence of acute fracture. 3. No thoracic spinal cord lesion is seen. D/ / 04/30/2017 11:49:39 Naif Perry MD / santiago Interpreting Provider: Naif Perry MD - Attending Attestation I examined this patient and reviewed laboratory, imaging and all diagnostic data. My medical decision-making was reviewed with Dr Trev Ballesteros - Resident Physician. I agree with the documented findings, disposition and treatment plan as described above.
[2017-04-30] MEDS: Lisinopril 20 MG TABLET PO SCH (08:44)
[2017-04-30] MEDS: amLODIPine 5 MG TABLET PO SCH (11:11)
--- NOTE | 2017-04-30 12:42 | Neurology - Consult Note ---
Date of Encounter: 04/30/17 Time of Encounter: 12:39 Assessment and Plan (1) Cervical spondylosis with myelopathy Current Visit: Yes Status: Acute Patient appears myelopathic with symptoms of paresthesia, mainly involving her legs and feet, and left arm and hand, with subtle legs weakness, muscle rigidity , and abnormal findings of brisk DTRS and ankle clonus. MRI of thoracic spine showed no significant pathology at the thoracic region but at cervical spine level, there is evidence of spinal canal stenosis and on top of that there appears to be disc herniation at the level of C4-C5, causing spinal cord compromise, this can be seen with mild spinal cord signal change. This would be best viewed with dedicated MRI of cervical spine. Will obtain MRI of cervical spine and recommend ortho/spine consultation. History of Present Illness Chief complaint: dizziness, paresthesia and leg weakness HPI: Ms. 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 Upon further inquiry patient reports paresthesia involving her legs, feet and left arm as well. Was found to have ankle clonus to her feet as well therefore neurology was consulted. Patient had CTA of neck which showed roughly about 25% right ICA stenosis, which is not able to explain her clinical symptoms. Patient reports numbness and tingling sensation to her feet and left leg, for about 3-4 months. She has not been evaluated by an ortho or neurologist. She reports some numbness tingling sensation especially to the left arm and leg but also to the right side as well. At times she feels that her legs are weak. MRI of thoracic spine reviewed and showed significant spinal canal at the level of C4-C5, with probably focal spinal cord signal change. Echo, CTA of neck and MRI of brain are reviewed. Past Med Surg Social Fam HX - Past Medical History Medical history: asthma Psychiatric history: no psych history - Social History Smoking Status: Never smoker Smokeless Tobacco Status: No Alcohol use: none Drug use: none - Family History Mother Hx Family Cardiac Disorders: Yes Hx Family Cancer: Yes (ovary) Father Hx Family Cancer: Yes (liver) Hx Family Endocrine Disorder: Yes Medications and Allergies Carvedilol [Coreg] 25 mg PO DAILY 04/28/17 [History] Escitalopram [Lexapro] 20 mg PO DAILY 04/28/17 [History] Omeprazole [PriLOSEC] 20 mg PO DAILY 04/28/17 [History] Allergies aspirin Allergy (Verified 04/28/17 10:16) Hives Penicillins [PCN] Allergy (Verified 04/28/17 10:16) Hives HIVES All Systems: A 10-system review of systems was performed and is negative for pertinent findings except as documented above in the HPI. Physical Examination - Vital Signs Vital Signs: Initial Vital Signs Temp Pulse Resp BP Pulse Ox 97.4 F L 51 16 129/65 94 04/28/17 07:26 04/28/17 07:26 04/28/17 07:26 04/28/17 07:26 04/28/17 07:26 - Constitutional General appearance: comfortable - Neurologic Sensorimotor examination: intact (Patient has reduced pinprick to her left foot) Detailed motor examination: grossly full strength in all extremities (Mild weakness to her legs, 4+/5 in terms of muscle strength. With increased muscle tone) Motor examination - right side: 4/5: hip flexors, tibialis Anterior, quadriceps , toe extension (EHL), plantarflexion, 5/5: deltoids, biceps, triceps, wrist flexion, wrist extension, bleach analyst Motor examination - left side: 4/5: bleach analyst, quadriceps, tibialis Anterior, toe extension (EHL), plantarflexion, 5/5: deltoids, biceps, triceps, wrist flexion, wrist extension, hip flexors Detailed sensory examination: other (reduced pinprick to the left foot) Reflex and gait examination: other (Gait not assessed) Reflexes: Biceps: 1+, Triceps: 1+, Brachioradialis: 1+, Patella: 4+, Achilles: 4 + Mental Status Examination: awake, alert, oriented to person, oriented to place, oriented to time, follows commands appropriately, answers questions appropriately, no agnosia, no aphasia, no aproxia Cranial nerve examination: PERRL, EOMI, visual javier intact, corneal reflexes brisk symmetrically, sensory to face intact, mastication intact, no facial asymmetry is present, no dysarthria, hearing is intact symmetrically, soft palate elevates bilaterally upon phonation, gag reflex intact, flexes SCM and trapezius muscles symmetrically with full power, tongue protrudes midline, no atrophy or facial fasiculations present Results - Laboratory Findings CBC and BMP: 06/14/17 05:49 04/30/17 05:49 Abnormal lab findings: Abnormal lab results RDW 14.9 % (11.5-14.5) H 04/30/17 05:49 PT 12.4 Seconds (9.4-12.1) H 04/28/17 07:53 Chloride 110 mEq/L (98-109) H 04/30/17 05:49 BUN 27 mg/dL (7-20) H 04/30/17 05:49 BUN/Creatinine Ratio 30 (6-26) H 04/30/17 05:49 POC Glucose 122 (58-89) H 04/28/17 07:37 Serum Total Protein 5.9 g/dL (6.0-8.3) L 04/30/17 05:49 Albumin 3.2 g/dL (3.5-5.0) L 04/30/17 05:49 Triglycerides 152 mg/dL (< 150) H 04/29/17 04:57 Cholesterol 238 mg/dL (< 200) H 04/29/17 04:57 LDL Cholesterol, Calc 159 mg/dL (0-99) H 04/29/17 04:57 Consult Discharge Plan - Plan Referrals: Bruce Bolden MD [Primary Care Provider] - 05/07/17 10:00 am ()
--- NOTE | 2017-04-30 18:19 | Carotid Imaging Report ---
Carotid Duplex Patient Name:Winifred Bello Order Number:[id number] Procedure Date:04/28/2017 Date:9Age:67 yrs Gender:Female Lt BP:149 / 76 mmHg Rt.BP:149 / 76 mmHgHeart Rate: Location:[facility] Room #: 2N14 Environmental Compliance Engineer:Graciela Pond Referring MD:Kiana Wilson MD mine safety director:Bruce Bolden MD Reading MD:Luciano Valdez MD Primary Indications:Near syncope, bradycardia Risk Factors Yes/No Hypertension Impressions: Findings: Right carotid system has a critical, 80-99% stenosis. Findings: Left carotid system has nonstenotic plaque. Recommendations: Test completed on 04/28/2017 at 4:00:00 pm. Critical findings reported to LEONARDO Weinstein by phone at 4:00:00 pm on 04/28/2017 by Graciela Pond. Findings Carotid Duplex: Right: There is nonstenotic plaque in the right mid common carotid artery. There is irregular heterogeneous plaque. There is nonstenotic plaque in the right distal common carotid artery. There is irregular heterogeneous plaque. There is 60-79% stenosis in the right bifurcation. There is irregular, heterogeneous calcified plaque. There is 80-99% stenosis in the right proximal internal carotid artery. There is 80-99% stenosis in the right mid internal carotid artery. There is 80-99% stenosis in the right distal internal carotid artery. There is nonstenotic plaque in the right eca. Left: There is nonstenotic plaque in the left mid common carotid artery. There is smooth heterogeneous plaque. There is nonstenotic plaque in the left distal common carotid artery. There is nonstenotic plaque in the left bifurcation. There is irregular heterogeneous plaque. There is nonstenotic plaque in the left proximal internal carotid artery. There is nonstenotic plaque in the left mid internal carotid artery. There is nonstenotic plaque in the left distal internal carotid artery. There is nonstenotic plaque in the left eca. Prior Study: No prior study available for comparison. Carotid Results Right PSV EDV Assessment Proximal CCA 76 13 Normal Mid CCA 76 18 Non Stenotic Plaque Distal CCA 71 17 Non Stenotic Plaque Bifurcation 145 45 60-79% stenosis Proximal ICA 281 93 80-99% stenosis Mid ICA 248 94 80-99% stenosis Distal ICA 339 101 80-99% stenosis ECA 73 15 Non Stenotic Plaque Vertebral Artery 46 10 Antegrade Flow Left PSV EDV Assessment Proximal CCA 72 18 Normal Mid CCA 81 23 Non Stenotic Plaque Distal CCA 68 19 Non Stenotic Plaque Bifurcation 95 25 Non Stenotic Plaque Proximal ICA 91 27 Non Stenotic Plaque Mid ICA 109 33 Non Stenotic Plaque Distal ICA 106 27 Non Stenotic Plaque ECA 104 30 Non Stenotic Plaque Vertebral Artery 56 21 Antegrade Flow Ratio's Right ICA/CCA Ratio: 4.46 ICA/CCA Values: 339/76 Left ICA/CCA Ratio: 1.35 ICA/CCA Values: 109/81 Updated by Isai Han MD, FACS on 04/30/2017 6:14:53 PM Isai Han MD electronically signed on 04/30/2017 6:15:27 PM with status of Final
[2017-05-01] MEDS: Ipratropium/Albuterol Neb 3 ML IH SCH ×2 (04:13→11:00)
[2017-05-01 06:05] LABS: Basophils # 0.1 K/mcL (0.0-0.2); Basophils % 0.6 %; Eosinophils # 0.6 K/mcL (0.0-0.6); Eosinophils % 6.5 %; Hematocrit 37.6 % (35.3-44.9); Hemoglobin 12.2 g/dL (11.5-15.4); Immature Granulocytes % 0.1 % (0-4); Lymphocytes # 3.5 K/mcL (0.6-4.6); Lymphocytes % 41.6 %; Mean Corpuscular HGB Conc 32.4 g/dL (31.6-35.5); Mean Corpuscular Hemoglobin 29.2 pg (28.0-33.3); Mean Platelet Volume 11.5 fL (9.4-12.4); Monocytes # 0.7 K/mcL (0.0-1.3); Monocytes % 8.2 %; Neutrophils # 3.6 K/mcL (1.6-8.9); Platelet Count 202 K/mcL (140-400); Red Blood Count 4.18 M/mcL (3.82-4.97)
[2017-05-01 06:27] LABS: Alanine Aminotransferase 8 Units/L (0-55); Albumin 3.1 g/dL (3.5-5.0); Albumin/Globulin Ratio 1.2 (1.1-2.2); Alkaline Phosphatase 55 Units/L (38-126); Aspartate Amino Transferase 12 Units/L (5-34); BUN/Creatinine Ratio 24 (6-26); Bilirubin,Total 0.4 mg/dL (0.2-1.2); Blood Urea Nitrogen 18 mg/dL (7-20); Calcium 8.6 mg/dL (8.6-10.8); Carbon Dioxide 23 mEq/L (19-29); Chloride 109 mEq/L (98-109); Globulin 2.6 g/dL (2.4-3.5); Glucose 90 mg/dL (70-99); Osmolality,Calculated 289 (280-300); Potassium 3.8 mEq/L (3.5-4.5); Sodium 139 mEq/L (136-145); Total Protein 5.7 g/dL (6.0-8.3); eGFR For African Americans > 60 (> 60); eGFR For Non-African Americans > 60 (> 60)
--- NOTE | 2017-05-01 06:54 | Vascular/[facility] Progress Note ---
Date of Encounter: 05/01/17 Time of Encounter: 08:05 - Assessment and plan (1) Carotid stenosis Status: Chronic The patient has recently undergoen a carotid duplex which revealed velocities consistent with an 80-99% stenosis. She underwent a CTA of the neck which revealed tortuous bilateral internal carotid arteries. She reportedly has moderate to severe VAN stenosis and a mild LICA stenosis. The radiologist draft report states 25% bilateral internal carotid artery stenosis. However, the VAN stenosis is described as moderate to severe and appears to be significantly more narrow than 25%. I will ask for clarification from Radiology. Her MRI reveals no evidence of CVA. The patient reports continued left upper extremity parasthesias; particularly at the fingertips. She alos reports dizziness intermittently. Her symptoms are atypical for carotid stenosis. Recommend Neurology consultation for further evaluation. At this time, it does not appear that the patient requires urgent carotid endarterectomy. Qualifiers: Laterality: bilateral Qualified Code(s): I65.23 - Occlusion and stenosis of bilateral carotid arteries - Subjective Interval history: The patient reports no acute issues overnight. She denies dizziness. She reports parasthesias at the tip of her left fingers. She denies chest pain or shortness of breath. Vital Signs, Last 4 Hours Temp Pulse Resp BP Pulse Ox 05/01/17 04:36 97.9 F 69 16 142/60 98 05/01/17 04:13 16 94 05/01/17 03:20 69 - Physical Examination General: Present: Conversant, No Apparent Distress HEENT: Present: Trachea midline, Pupils equal Cardiac: Present: Reg Rate and Rhythm, Normal S1 and S2, No Murmur Lungs: Present: Normal Breath Sounds, No Wheeze, Rales, Rhonchi Neuro: Present: Alert and responsive, No focal deficits noted, Cranial nerves grossly intact, Motor nerves grossly intact, Sensory nerves grossly intact Vascular: Present: Normal capillary refill, Pulse, normal. Absent: Cyanosis, Edema Abdomen: Present: Soft, Non-tender Skin: Present: No rashes noted on visualized skin Musculoskeletal: Present: No Chest Wall Tenderness Results 05/01/17 05:06 05/01/17 05:06 Lab Results, Last 24 hours 05/01/17 05/01/17 05:06 05:06 WBC 8.4 Hgb 12.2 Hct 37.6 Plt Count 202 Sodium 139 Potassium 3.8 Chloride 109 Carbon Dioxide 23 BUN 18 Creatinine 0.76 Glucose 90 Calcium 8.6 Total Bilirubin 0.4 AST 12 ALT 8 Alkaline Phosphatase 55 - Imaging / Other Tests CT/CTA: report reviewed, image reviewed MRI/MRA: report reviewed Consult Discharge Plan - Plan Instructions: Peripheral Vascular Disorders (DC), Chronic Obstructive Pulmonary Disease (DC), Chronic Hypertension (DC) Additional Instructions: 1. Follow-up with your primary care provider in the next 3-5 days 2. Take all prescriptions as prescribed, any concerns or questions contact her primary care provider. 3. Return to the emergency department if: He experienced concerning medical symptoms or signs including return of dizziness episodes, falling, any return of numbness tingling or weakness or any other signs of stroke including facial asymmetry, difficulty talking, difficulty swallowing, limb weakness or any numbness. 4. Follow-up with vascular surgery as scheduled. Referrals: Luciano Valdez MD [Partnered Physician] - 05/26/17 10:30 am Bruce Bolden MD [Primary Care Provider] - 05/07/17 10:00 am () Prescriptions: amLODIPine [Norvasc] 10 mg PO DAILY 30 Days Atorvastatin [Lipitor] 40 mg PO HS #30 tablet Clopidogrel [Plavix] 75 mg PO DAILY #30 tablet Lisinopril [Zestril] 20 mg PO DAILY 30 Days
[2017-05-01] MEDS: amLODIPine 5 MG TABLET PO SCH (07:37)
[2017-05-01] MEDS: Lisinopril 20 MG TABLET PO SCH (07:37)
[2017-05-01] MEDS: *HR* HYDROcodone/Acet 5/325 mg TABLET PO PRN ×2 (07:37→13:54)
--- NOTE | 2017-05-01 09:43 | Internal Med Progress Note ---
<Chato Ballesteros - Last Filed: 05/01/17 13:33> Date of Encounter: 05/01/17 Time of Encounter: 09:41 - Assessment and plan (1) Near syncope Status: Acute Assessment and plan: Patient's presented with symptoms of weakness in her legs and a feeling that she is going to pass out, is not experiencing dizziness for roughly 5 months and numbness and tingling in her left upper and lower extremity more recently. Upon presentation she was bradycardic with a heart rate in the 50s with a low in the 40s. Her Coreg was held. - No signs of bleeding, troponins were negative, EKG demonstrated sinus bradycardia with heart rate of 51. Imaging studies: CT of the lumbar, thoracic, cervical spine without correlating findings. CT of the brain without any acute findings. CTA reviewed and vascular surgery involvements. Nuclear med stress without significant findings for ischemia, MRI of the brain without acute findings. Given findings on the CTA the patient is to undergo right-sided carotid endarterectomy in the outpatient setting. Syncopal episode possibly secondary to right-sided carotid pathology - Patient is likely to undergo carotid endarterectomy in the outpatient setting Plan: - Continue cardiac monitoring - Continue to hold beta shante with bradycardia - Blood pressure control with lisinopril and amlodipine - Patient was started on Lipitor with elevated triglycerides and cholesterol - Neurology, vascular surgery and orthopedic surgery involved case. (2) Bradycardia Status: Acute Assessment and plan: Resolved. Likely secondary to Coreg. Heart rate is stable after discontinuation of Coreg. Plan: -Hold beta blockers - Continue cardiac monitoring (3) HTN (hypertension) Status: Chronic Assessment and plan: Patient is a known history of hypertension with elevated systolic blood pressure up to 220. - Currently hypertensive Plan: - Hold IV fluids - Continue lisinopril and amlodipine - Hydralazine 5 mg IV every 6 hours when necessary for systolic blood pressure greater than 160 - Low sodium diet Qualifiers: Hypertension type: essential hypertension Qualified Code(s): I10 - Essential (primary) hypertension (4) Left sided numbness Status: Chronic Assessment and plan: Patient had resolution of left-sided numbness, neurologic exam was significant for hyperreflexia bilateral lower extremities and 2-3 beats of clonus in the left patellar and Achilles reflex. - Patient has been evaluated by neurology and MRI of the cervical and thoracic spine of been evaluated and discussed. - Dr. Cassidy was consult and spoken to yesterday regarding this patient's awaiting further recommendations regarding cervical spine stenosis and pathology. (5) COPD (chronic obstructive pulmonary disease) Status: Acute Assessment and plan: Stable. Continue home inhalers and respiratory treatment. Qualifiers: COPD type: chronic bronchitis Chronic bronchitis type: simple Qualified Code(s): J41.0 - Simple chronic bronchitis (6) Carotid stenosis Status: Chronic Assessment and plan: As discussed above. Qualifiers: Laterality: bilateral Qualified Code(s): I65.23 - Occlusion and stenosis of bilateral carotid arteries - Subjective Interval history: Mrs. Bello 59-year-old female has been seen and evaluated patient bedside this morning. She is alert awake oriented interactive in no acute distress and just returned from a stress test. She continues to have episodes of dizziness with ambulation. She denies continued weakness and numbness in her left extremities. She denies any new symptoms over night. She is upset about not having her endarterectomy inpatient and is worried about returning home and having recurrent symptoms. - Constitutional Vitals: Temp Pulse Resp BP Pulse Ox 98.0 F 64 16 154/74 95 05/01/17 07:24 05/01/17 07:24 05/01/17 07:24 05/01/17 07:24 05/01/17 07:24 General appearance: Present: cooperative, A&O X 3, pleasant, no acute distress, obese, answers questions appropriately Exam: General: Patient alert, awake, oriented 3, interactive, in no acute distress HEENT: Normocephalic, atraumatic, pupils equal reactive to light, nasal cavity pain and open septum median position, oral mucosa moist, uvula midline, neck supple trachea midline no palpable lymphadenopathy, no thyromegaly. Chest: Symmetric bilateral correlating with respiratory effort, effort nonlabored. Cardiac: Regular rate and rhythm, grade 3/6 systolic ejection murmur best appreciated over the left sternal border. no bruits appreciated bilateral carotids, Radial pulses 2+ bilateral, posterior tibial and dorsal pedal pulses 2 + bilateral. Respiratory: Clear to auscultation all lung javier Abdomen: Soft, nontender, positive bowel sounds, no palpable masses appreciated on examination Extremities: Symmetric bilateral, no erythema or edema, patient moving all 4 extremities spontaneously. Neurologic: Cranial nerves II through XII intact. Pupils are equal and reactive to light, EOMI Face symmetric, muscle strength symmetric bilateral upper and lower extremities. Finger to nose without abnormal coordination, patient demonstrates bilateral lower extremity hyperreflexia left side worse than right, left side patellar and Achilles 2-3 beat clonus with deep tendon reflex. Sensation symmetric bilateral upper and lower extremities. Internal Medicine: Result - Labs CBC & Chem 7: 05/01/17 05:06 05/01/17 05:06 Labs: Short CBC 05/01/17 Range/Units 05:06 WBC 8.4 (4.3-11.1) K/mcL Hgb 12.2 (11.5-15.4) g/dL Hct 37.6 (35.3-44.9) % Plt Count 202 (140-400) K/mcL Neutrophils # 3.6 (1.6-8.9) K/mcL BMP 05/01/17 05:06 Sodium 139 Potassium 3.8 Chloride 109 Carbon Dioxide 23 BUN 18 Creatinine 0.76 Glucose 90 Calcium 8.6 Liver Function 05/01/17 Range/Units 05:06 Total Bilirubin 0.4 (0.2-1.2) mg/dL AST 12 (5-34) Units/L ALT 8 (0-55) Units/L Alkaline Phosphatase 55 (38-126) Units/L Albumin 3.1 L (3.5-5.0) g/dL - ABG Interpretation ABG results: PT/INR, D-dimer PT 12.4 Seconds (9.4-12.1) H 04/28/17 07:53 - Impressions Impressions Neck CTA 04/28/17 18:12 IMPRESSION: 1. No acute arterial abnormality in the neck. 2. Moderate to severe stenosis of the proximal right internal carotid artery measuring 25% per NASCET criteria. 3. Mild stenosis of the proximal left internal carotid artery measuring 25% per NASCET criteria. 4. No vertebral artery stenosis. D/ / Dinesh Zhu MD / Dinesh Zhu MD Interpreting Provider: Dinesh Zhu MD Thoracic Spine MRI 04/30/17 08:42 IMPRESSION: 1. Mild multilevel degenerative disc disease noted in the thoracic spine, greatest at T12-L1, where there are associated endplate degenerative changes. 2. No evidence of acute fracture. 3. No thoracic spinal cord lesion is seen. D/ / 04/30/2017 11:49:39 Naif Perry MD / santiago Interpreting Provider: Naif Perry MD Cervical Spine MRI 04/30/17 11:27 IMPRESSION: Disc and osteophytes result in mild narrowing of the neural foramina throughout the cervical region as discussed above. There is mild stenosis of the thecal sac at C4-5 and C5-6. D/ / 04/30/2017 18:46:10 Amy Webster MD / santiago Interpreting Provider: Amy Webster MD Consult Discharge Plan - Plan Instructions: Peripheral Vascular Disorders (DC), Chronic Obstructive Pulmonary Disease (DC), Chronic Hypertension (DC) Additional Instructions: 1. Follow-up with your primary care provider in the next 3-5 days 2. Take all prescriptions as prescribed, any concerns or questions contact her primary care provider. 3. Return to the emergency department if: He experienced concerning medical symptoms or signs including return of dizziness episodes, falling, any return of numbness tingling or weakness or any other signs of stroke including facial asymmetry, difficulty talking, difficulty swallowing, limb weakness or any numbness. 4. Follow-up with vascular surgery as scheduled. Referrals: Luciano Valdez MD [Partnered Physician] - 05/26/17 10:30 am Bruce Bolden MD [Primary Care Provider] - 05/07/17 10:00 am () Prescriptions: amLODIPine [Norvasc] 10 mg PO DAILY 30 Days Atorvastatin [Lipitor] 40 mg PO HS #30 tablet Clopidogrel [Plavix] 75 mg PO DAILY #30 tablet Lisinopril [Zestril] 20 mg PO DAILY 30 Days <Kiana Wilson - Last Filed: 05/01/17 15:46> Date of Encounter: 05/01/17 - Assessment and plan (1) Near syncope Status: Acute (2) Bradycardia Status: Acute (3) HTN (hypertension) Status: Chronic Qualifiers: Hypertension type: essential hypertension Qualified Code(s): I10 - Essential (primary) hypertension (4) Left sided numbness Status: Chronic (5) COPD (chronic obstructive pulmonary disease) Status: Acute Qualifiers: COPD type: chronic bronchitis Chronic bronchitis type: simple Qualified Code(s): J41.0 - Simple chronic bronchitis - Constitutional Vitals: Temp Pulse Resp BP Pulse Ox 97.9 F 67 16 168/78 99 05/01/17 11:05 05/01/17 11:56 05/01/17 11:05 05/01/17 11:56 05/01/17 11:05 Internal Medicine: Result - Labs CBC & Chem 7: 05/01/17 05:06 05/01/17 05:06 Labs: Short CBC 05/01/17 Range/Units 05:06 WBC 8.4 (4.3-11.1) K/mcL Hgb 12.2 (11.5-15.4) g/dL Hct 37.6 (35.3-44.9) % Plt Count 202 (140-400) K/mcL Neutrophils # 3.6 (1.6-8.9) K/mcL BMP 05/01/17 05:06 Sodium 139 Potassium 3.8 Chloride 109 Carbon Dioxide 23 BUN 18 Creatinine 0.76 Glucose 90 Calcium 8.6 Liver Function 05/01/17 Range/Units 05:06 Total Bilirubin 0.4 (0.2-1.2) mg/dL AST 12 (5-34) Units/L ALT 8 (0-55) Units/L Alkaline Phosphatase 55 (38-126) Units/L Albumin 3.1 L (3.5-5.0) g/dL - ABG Interpretation ABG results: PT/INR, D-dimer PT 12.4 Seconds (9.4-12.1) H 04/28/17 07:53 - Impressions Impressions Cervical Spine MRI 04/30/17 11:27 IMPRESSION: Disc and osteophytes result in mild narrowing of the neural foramina throughout the cervical region as discussed above. There is mild stenosis of the thecal sac at C4-5 and C5-6. D/ / 04/30/2017 18:46:10 Amy Webster MD / santiago Interpreting Provider: Amy Webster MD - Attending Attestation I examined this patient and reviewed laboratory, imaging and all diagnostic data. My medical decision-making was reviewed with Dr Trev Ballesteros - Resident Physician. I agree with the documented findings, disposition and treatment plan as described above.
[2017-05-01 11:58] VITALS: BP 168/78
--- NOTE | 2017-05-01 12:55 | Neurology Progress Note ---
Date of Encounter: 05/01/17 Time of Encounter: 12:52 Assessment and Plan (1) Cervical spondylosis with myelopathy Current Visit: Yes Status: Acute It is my opinion that the finding of cervical spinal canal stenosis and disc herniation at the level C4-C5 may likely contributing her paresthesia involving the left hand and also abnormal brisk DTRs on her neurological examination. Would recommend her to follow up with storage specialist. No further testing will be recommended from neurology perspective. Will sign off at this time. Please call if any questions Subjective Principal diagnosis: cervical disc disesae Interval history: Patient seen and examined. She is feeling fine. Still has some mild numbness and tingling involving the left hand, but no significant leg weakness. Able to walk with no difficulty. MRI of cervical spine completed and reviewed. does have spinal canal stenosis and disc bulge at the C4-C5 level but no definitive spinal cord signal changes identified. Objective - Constitutional Vitals: Temp Pulse Resp BP Pulse Ox 97.9 F 67 16 168/78 99 05/01/17 11:05 05/01/17 11:56 05/01/17 11:05 05/01/17 11:56 05/01/17 11:05 - Neurological Exam Sensorimotor examination: Present: intact (Patient has reduced pinprick to her left foot) Motor Examination: Present: grossly full strength in all extremities (Mild weakness to her legs, 4+/5 in terms of muscle strength. 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, tibialis Anterior, toe extension (EHL), plantarflexion, 5/5: deltoids, biceps, triceps, wrist flexion, wrist extension, hip flexors Sensation intact: Present: other (reduced pinprick to the left foot) Reflex and gait examination: other (Gait not assessed) Mental Status Examination: Present: awake, alert, oriented to person, oriented to place, oriented to time, follows commands appropriately, answers questions appropriately, no agnosia, no aphasia, no aproxia Cranial nerve examination: Present: PERRL, EOMI, visual javier intact, corneal reflexes brisk symmetrically, sensory to face intact, mastication intact, no facial asymmetry is present, no dysarthria, hearing is intact symmetrically, soft palate elevates bilaterally upon phonation, gag reflex intact, flexes SCM and trapezius muscles symmetrically with full power, tongue protrudes midline, no atrophy or facial fasiculations present Results - Laboratory Findings CBC and BMP: 05/01/17 05:06 05/01/17 05:06 Abnormal lab findings: Abnormal lab results RDW 15.0 % (11.5-14.5) H 05/01/17 05:06 PT 12.4 Seconds (9.4-12.1) H 04/28/17 07:53 POC Glucose 122 (58-89) H 04/28/17 07:37 Serum Total Protein 5.7 g/dL (6.0-8.3) L 05/01/17 05:06 Albumin 3.1 g/dL (3.5-5.0) L 05/01/17 05:06 Triglycerides 152 mg/dL (< 150) H 04/29/17 04:57 Cholesterol 238 mg/dL (< 200) H 04/29/17 04:57 LDL Cholesterol, Calc 159 mg/dL (0-99) H 04/29/17 04:57 Consult Discharge Plan - Plan Referrals: Bruce Bolden MD [Primary Care Provider] - 05/07/17 10:00 am ()
--- NOTE | 2017-05-01 13:22 | Discharge Summary ---
<Chato Ballesteros Rikki - Last Filed: 05/01/17 13:16> Date of Encounter: 05/01/17 Time of Encounter: 13:16 - Discharge Diagnosis (1) Near syncope Priority: Primary Status: Acute (2) Bradycardia Priority: Primary Status: Acute (3) HTN (hypertension) Priority: Primary Status: Chronic Qualifiers: Hypertension type: essential hypertension Qualified Code(s): I10 - Essential (primary) hypertension (4) Left sided numbness Priority: Primary Status: Chronic (5) COPD (chronic obstructive pulmonary disease) Priority: Secondary Status: Acute Qualifiers: COPD type: chronic bronchitis Chronic bronchitis type: simple Qualified Code(s): J41.0 - Simple chronic bronchitis (6) Carotid stenosis Priority: Primary Status: Chronic Qualifiers: Laterality: bilateral Qualified Code(s): I65.23 - Occlusion and stenosis of bilateral carotid arteries - Discharge Medications Prescriptions: amLODIPine [Norvasc] 10 mg PO DAILY 30 Days Atorvastatin [Lipitor] 40 mg PO HS #30 tablet Clopidogrel [Plavix] 75 mg PO DAILY #30 tablet Lisinopril [Zestril] 20 mg PO DAILY 30 Days Home Medications: Carvedilol [Coreg] 25 mg PO DAILY 04/28/17 [History] Escitalopram [Lexapro] 20 mg PO DAILY 04/28/17 [History] Omeprazole [PriLOSEC] 20 mg PO DAILY 04/28/17 [History] Atorvastatin [Lipitor] 40 mg PO HS #30 tablet 05/01/17 [Rx] Clopidogrel [Plavix] 75 mg PO DAILY #30 tablet 05/01/17 [Rx] Lisinopril [Zestril] 20 mg PO DAILY 30 Days 05/01/17 [Rx] amLODIPine [Norvasc] 10 mg PO DAILY 30 Days 05/01/17 [Rx] Allergies/Adverse Reactions: Allergies aspirin Allergy (Verified 04/28/17 10:16) Hives Penicillins [PCN] Allergy (Verified 04/28/17 10:16) Hives HIVES Procedures/tests Complete & Pending: Procedures Performed prior 72 hours Category Date Time Status CTA Neck [CT angio neck] [CT] Routine Cat Scan 04/28/17 18:12 Completed NM leandra perf SPECT multi [NM] Routine Exams 04/29/17 07:00 Taken MR cervical spine wo con [MR] Routine MRI 04/30/17 11:27 Completed MR head/brain wo con [MR] Routine MRI 04/29/17 08:31 Completed MR thoracic spine wo con [MR] Stat MRI 04/30/17 08:42 Completed ECG 12 lead ECG [ECG] AM 0600 Y 04/29/17 06:00 Ordered SP pharm nuclear stress Routine Y 04/29/17 07:00 Completed Date of admission: 04/28/17 09:20 Primary care physician: Bruce Bolden MD Consults: 04/28/17 18:27 Consult to Vascular Surgery [CONS] Routine Consulting Provider: [facility] Reason for Consult: 80-99% stenosis R Time Notified: 18:15 Call Completed: Yes 04/30/17 10:08 Consult to Neurology [CONS] Routine Consulting Provider: Neurology [facility] Reason for Consult: clonus, dizzyness, and left extremity numbness Call Completed: Yes 04/30/17 10:58 Consult to Physical Therapy [CONS] Routine Comment: Evaluate, develop and implement POC Reason for Consult: dizzyness, assess needs 04/30/17 11:51 Consult to Orthopedic Surgery [CONS] Routine Consulting Provider: Orthoped[facility] Reason for Consult: 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 Call Completed: Yes Discharging clinician: Chato Ballesteros Anticipated date of discharge: 05/01/17 - Patient Status Disposition: Home, Self-Care Condition: Good Functional capacity at discharge: independent ambulation Overall status at discharge: patient is progressing back to baseline - Discharge Instructions Instructions: Peripheral Vascular Disorders (DC), Chronic Obstructive Pulmonary Disease (DC), Chronic Hypertension (DC) Follow Up With: Luciano Valdez MD [Partnered Physician] - 05/26/17 10:30 am Bruce Bolden MD [Primary Care Provider] - 05/07/17 10:00 am () Forms: Work/School Release Additional Instructions: 1. Follow-up with your primary care provider in the next 3-5 days 2. Take all prescriptions as prescribed, any concerns or questions contact her primary care provider. 3. Return to the emergency department if: He experienced concerning medical symptoms or signs including return of dizziness episodes, falling, any return of numbness tingling or weakness or any other signs of stroke including facial asymmetry, difficulty talking, difficulty swallowing, limb weakness or any numbness. 4. Follow-up with vascular surgery as scheduled. - Diet and Activity Activity: as per physical therapy Diet: low fat, low cholesterol Interval History: Ms. Bello is a 67 year old female with past medical history of HTN and asthma/ copd who comes after an episode of dizziness. She underwent chest x-ray, head CT, placed on cardiac monitoring and admitted to general medical floor. She underwent CV workup including carotid duplex ultrasound, echocardiogram, cardiac stress test, cervical lumbar and thoracic spine CTs, neck CTA, brain/ thoracic/cervical MRI, she was seen by vascular surgery who reviewed her neck CTA findings and determine that there was a torturous right carotid and significant stenosis that would require operation in the future. Given her findings of bilateral lower extremity mild clonus and her history of numbness on the left side and near syncopal episodes neurology was consulted, who evaluated the patient and given findings seen on the thoracic MRI recommended a cervical MRI and consult to spine surgery for cervical stenosis. She remained stable throughout her inpatient stay on equipment monitor phototypesetting and treatment for her underlying medical conditions. She was started on Plavix as she has an allergy to aspirin for anticoagulation with her stenosis. She not have any repeat near syncopal episodes and the numbness and tingling on her left side resolved. She was seen by physical therapy who determined she did not need any extended needs. Vascular surgery recommended follow-up in the outpatient setting. The patient was seen and evaluated on 05/01/2017 and deemed stable for discharge home with close follow-up with her primary care provider and specialist. She is provided a prescription for Plavix, Lipitor for her hyper lipidemia and stenosis. She is also provided amlodipine and lisinopril for her hypertension. Hospital course: Ms. Bello is a 67 year old female - Time Spent with Patient Total time spent providing and/or coordinating discharge services: - Constitutional Vitals: Temp Pulse Resp BP Pulse Ox 97.9 F 67 16 168/78 99 05/01/17 11:05 05/01/17 11:56 05/01/17 11:05 05/01/17 11:56 05/01/17 11:05 General appearance: Present: cooperative, A&O X 3, pleasant, no acute distress, obese, answers questions appropriately Exam: General: Patient alert, awake, oriented 3, interactive, in no acute distress HEENT: Normocephalic, atraumatic, pupils equal reactive to light, nasal cavity pain and open septum median position, oral mucosa moist, uvula midline, neck supple trachea midline no palpable lymphadenopathy, no thyromegaly. Chest: Symmetric bilateral correlating with respiratory effort, effort nonlabored. Cardiac: Regular rate and rhythm, grade 3/6 systolic ejection murmur best appreciated over the left sternal border. no bruits appreciated bilateral carotids, Radial pulses 2+ bilateral, posterior tibial and dorsal pedal pulses 2 + bilateral. Respiratory: Clear to auscultation all lung javier Abdomen: Soft, nontender, positive bowel sounds, no palpable masses appreciated on examination Extremities: Symmetric bilateral, no erythema or edema, patient moving all 4 extremities spontaneously. Neurologic: Cranial nerves II through XII intact. Pupils are equal and reactive to light, EOMI Face symmetric, muscle strength symmetric bilateral upper and lower extremities. Finger to nose without abnormal coordination, patient demonstrates bilateral lower extremity hyperreflexia left side worse than right, left side patellar and Achilles 2-3 beat clonus with deep tendon reflex. Sensation symmetric bilateral upper and lower extremities. <Kiana Wilson - Last Filed: 05/01/17 14:42> Date of Encounter: 05/01/17 - Discharge Diagnosis (1) Near syncope Status: Acute (2) Bradycardia Status: Acute (3) HTN (hypertension) Status: Chronic Qualifiers: Hypertension type: essential hypertension Qualified Code(s): I10 - Essential (primary) hypertension (4) Left sided numbness Status: Chronic (5) COPD (chronic obstructive pulmonary disease) Status: Acute Qualifiers: COPD type: chronic bronchitis Chronic bronchitis type: simple Qualified Code(s): J41.0 - Simple chronic bronchitis Procedures/tests Complete & Pending: Procedures Performed prior 72 hours Category Date Time Status CTA Neck [CT angio neck] [CT] Routine Cat Scan 04/28/17 18:12 Completed NM leandra perf SPECT multi [NM] Routine Exams 04/29/17 07:00 Taken MR cervical spine wo con [MR] Routine MRI 04/30/17 11:27 Completed MR head/brain wo con [MR] Routine MRI 04/29/17 08:31 Completed MR thoracic spine wo con [MR] Stat MRI 04/30/17 08:42 Completed ECG 12 lead ECG [ECG] AM 0600 Y 04/29/17 06:00 Ordered SP pharm nuclear stress Routine Y 04/29/17 07:00 Completed Date of admission: 04/28/17 09:20 Primary care physician: Bruce Bolden MD Consults: 04/28/17 18:27 Consult to Vascular Surgery [CONS] Routine Consulting Provider: [facility] Reason for Consult: 80-99% stenosis R Time Notified: 18:15 Call Completed: Yes 04/30/17 10:08 Consult to Neurology [CONS] Routine Consulting Provider: Neurology [facility] Reason for Consult: clonus, dizzyness, and left extremity numbness Call Completed: Yes 04/30/17 10:58 Consult to Physical Therapy [CONS] Routine Comment: Evaluate, develop and implement POC Reason for Consult: dizzyness, assess needs 04/30/17 11:51 Consult to Orthopedic Surgery [CONS] Routine Consulting Provider: [facility] Reason for Consult: 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 Bello is a 67 year old female - Time Spent with Patient Total time spent providing and/or coordinating discharge services: - Constitutional Vitals: Temp Pulse Resp BP Pulse Ox 97.9 F 67 16 168/78 99 05/01/17 11:05 05/01/17 11:56 05/01/17 11:05 05/01/17 11:56 05/01/17 11:05 - Attending Attestation I examined this patient and reviewed laboratory, imaging and all diagnostic data. My medical decision-making was reviewed with Dr Trev Ballesteros - Resident Physician. I agree with the documented findings, disposition and treatment plan as described above.
--- NOTE | 2017-05-01 15:40 | Spinal Consult Note ---
Date of Encounter: 05/01/17 Time of Encounter: 12:30 Assessment and Plan (1) Near syncope Status: Acute On exam she is awake and alert. Afebrilee VSS. Fires all upper and lower extremtiy motor groups with good strength. She has a negative Hoffmans signs. She has 7 beats of clonus on the left. Her hips move symmetrically. MRI of the cervical, thoracic and lumbar spine is negative for compressive lesion or myelomalcia. THere are multilevel degenerative changes in the cervical and lumbar spine. I have low suspicion for compressive lesion in spine causing myelopathy. Can follow up in Neurology clinic for serial Neurologic evaluations. Surgical decompression is not indicated. History of Present Illness Chief complaint: concern for myelopathy, compressive lesion HPI: Ms. Bello is a 67 year old female admitted and evaluated by hospatalist service and Neurology with tingling in the lower extremties and left arm. She was noted tohave abnormal upper motor neuron sign on physical exam and concern for myelopathy. We are asked to see regarding possible surgical intervention. Past Med Surg Social Fam HX - Past Medical History Medical history: asthma Psychiatric history: no psych history - Social History Smoking Status: Never smoker Smokeless Tobacco Status: No Alcohol use: none Drug use: none - Family History Mother Hx Family Cardiac Disorders: Yes Hx Family Cancer: Yes (ovary) Father Hx Family Cancer: Yes (liver) Hx Family Endocrine Disorder: Yes Medications and Allergies Carvedilol [Coreg] 25 mg PO DAILY 04/28/17 [History] Escitalopram [Lexapro] 20 mg PO DAILY 04/28/17 [History] Omeprazole [PriLOSEC] 20 mg PO DAILY 04/28/17 [History] Atorvastatin [Lipitor] 40 mg PO HS #30 tablet 05/01/17 [Rx] Clopidogrel [Plavix] 75 mg PO DAILY #30 tablet 05/01/17 [Rx] Lisinopril [Zestril] 20 mg PO DAILY 30 Days 05/01/17 [Rx] amLODIPine [Norvasc] 10 mg PO DAILY 30 Days 05/01/17 [Rx] Allergies aspirin Allergy (Verified 04/28/17 10:16) Hives Penicillins [PCN] Allergy (Verified 04/28/17 10:16) Hives HIVES Results - Labs Result Diagrams: 05/01/17 05:06 05/01/17 05:06 Labs: Abnormal lab results RDW 15.0 % (11.5-14.5) H 05/01/17 05:06 PT 12.4 Seconds (9.4-12.1) H 04/28/17 07:53 POC Glucose 122 (58-89) H 04/28/17 07:37 Serum Total Protein 5.7 g/dL (6.0-8.3) L 05/01/17 05:06 Albumin 3.1 g/dL (3.5-5.0) L 05/01/17 05:06 Triglycerides 152 mg/dL (< 150) H 04/29/17 04:57 Cholesterol 238 mg/dL (< 200) H 04/29/17 04:57 LDL Cholesterol, Calc 159 mg/dL (0-99) H 04/29/17 04:57 H & H 05/01/17 Range/Units 05:06 Hgb 12.2 (11.5-15.4) g/dL Hct 37.6 (35.3-44.9) % All other labs normal. Consult Discharge Plan - Plan Instructions: Peripheral Vascular Disorders (DC), Chronic Obstructive Pulmonary Disease (DC), Chronic Hypertension (DC) Additional Instructions: 1. Follow-up with your primary care provider in the next 3-5 days 2. Take all prescriptions as prescribed, any concerns or questions contact her primary care provider. 3. Return to the emergency department if: He experienced concerning medical symptoms or signs including return of dizziness episodes, falling, any return of numbness tingling or weakness or any other signs of stroke including facial asymmetry, difficulty talking, difficulty swallowing, limb weakness or any numbness. 4. Follow-up with vascular surgery as scheduled. Referrals: Luciano Valdez MD [Partnered Physician] - 05/26/17 10:30 am Bruce Bolden MD [Primary Care Provider] - 05/07/17 10:00 am () Prescriptions: amLODIPine [Norvasc] 10 mg PO DAILY 30 Days Atorvastatin [Lipitor] 40 mg PO HS #30 tablet Clopidogrel [Plavix] 75 mg PO DAILY #30 tablet Lisinopril [Zestril] 20 mg PO DAILY 30 Days
== END 2017-05-01 14:40 | disposition home or self-care (01) ==
LOC: EMEROO 07:23 → 2NNU 07:23 → SUATTDRO 09:20 → 2NNU 10:54
PROVIDERS: ADMIT Internal Medicine; ATTEND Internal Medicine

== ENCOUNTER 2017-06-18 09:37 | Inpatient (IN) ==
[2017-06-18] MEDS ORDERED: Lidocaine -MPF 1% 2 ML VIAL ID ONE (09:47)
[2017-06-18] MEDS ORDERED: CeFAZolin Pre 2,000 MG/100 ML 2,000 MG/100 ML BAG IVPB ONE (09:47)
[2017-06-18] MEDS ORDERED: Vancomycin 1,000 MG in D5% in Water 250 ML IVPB ONE (09:47)
[2017-06-18] MEDS ORDERED: Albuterol 2.5 MG/3 ML NEBULIZER IH ONE (09:47)
[2017-06-18] MEDS ORDERED: Ringers Solution, Lactated 1,000 ML IVC SCH (10:00)
[2017-06-18] MEDS ORDERED: *HR* Propofol 200 MG/20 ML VIAL IVP ONE (10:03)
[2017-06-18] MEDS ORDERED: *HR* Remifentanil 2 MG VIAL IVP ONE (10:03)
[2017-06-18] MEDS ORDERED: *HR* FentaNYL (PF) 100 MCG/2 ML VIAL ONE (10:03)
[2017-06-18] MEDS ORDERED: *HR* Midazolam HCl 2 MG/2 ML VIAL ONE (10:03)
[2017-06-18] MEDS ORDERED: Ondansetron 4 MG/2 ML VIAL ONE (10:04)
[2017-06-18] MEDS ORDERED: Lidocaine -MPF 2% 2 ML VIAL ONE (10:04)
[2017-06-18] MEDS ORDERED: Dexamethasone 4 MG/ML VIAL ONE (10:04)
[2017-06-18] MEDS ORDERED: *HR* Heparin 5,000 UNIT/ML VIAL ONE ×2 (10:06→15:16)
[2017-06-18] MEDS ORDERED: Water for inj. (sterile) 30 ML IV ONE (10:15)
[2017-06-18] MEDS ORDERED: EPHEDrine 50 MG/ML VIAL ONE (10:18)
[2017-06-18] MEDS ORDERED: Famotidine 20 MG/2 ML VIAL IVP ONE (10:48)
[2017-06-18] MEDS ORDERED: *HR* Labetalol 20 MG/4 ML SYRINGE IVP PRN ×2 (10:48→18:21)
[2017-06-18] MEDS ORDERED: *HR* HYDROmorphone (PF) 1 MG/ML SYRINGE IVP PRN (10:48)
[2017-06-18] MEDS ORDERED: *HR* Promethazine 25 MG/ML VIAL IVP PRN (10:48)
[2017-06-18] MEDS ORDERED: Acetaminophen IV 1,000 MG/100 ML INFUS..BTL IVPB ONE (10:56)
--- NOTE | 2017-06-18 11:00 | Anesthesia Evaluation PreOp ---
Date of Encounter: 06/18/17 Time of Encounter: 10:58 - Past History Planned Operation: R-CEA Cardiac History: HTN (maintained on Lisinopril), Hyperlipidemia, Other (LVEF>70% , negative for ischemia or infarct. 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: CVA (Carotid Stenosis), Other (Anxiety/Depression maintained on Citalopram) Other Medical History: GERD (H.Pylori gastritis maintained on Omeprazole) Anesthesia History: No Prior Anesthetic Complications, Past Anesthesia (hYster) Alcohol Use: none Drug use: none Medications and Allergies Escitalopram [Lexapro] 20 mg PO DAILY 04/28/17 [History] Omeprazole [PriLOSEC] 20 mg PO DAILY 04/28/17 [History] Atorvastatin [Lipitor] 40 mg PO HS #30 tablet 05/01/17 [Rx] Clopidogrel [Plavix] 75 mg PO DAILY #30 tablet 05/01/17 [Rx] Albuterol Sulfate [Albuterol Inhaler] 2 puff IH Q6HR PRN 05/28/17 [History] Lisinopril [Zestril] 40 mg PO QAM 06/18/17 [History] Lisinopril-HCTZ 20-12.5 [Prinzide 20-12.5] 1 each PO QPM 06/18/17 [History] Allergies aspirin Allergy (Verified 06/18/17 10:24) Hives *PATIENT STATES FORGOT WHAT REACTION WAS HAPPENED MANY YEARS AGO 06.18.17 azithromycin [From Zithromax Z-Toni] Adverse Reaction (Verified 06/18/17 10:24) See Comments patient states that it is ineffective and "does not work" Penicillins [PCN] Adverse Reaction (Verified 06/18/17 10:24) Hives *PATIENT STATES FORGOT WHAT REACTION WAS HAPPENED MANY YEARS AGO 06.18.17 diuretics Allergy (Uncoded 06/18/17 10:24) See Comments *PATIENT STATES FORGOT WHAT REACTION WAS HAPPENED MANY YEARS AGO 06.18.17 - Meds/Allergy Pre-op Review Medications Reviewed: Yes Allergies Reviewed: Yes Beta Blockers on Current Med List: No Anesthesia Results - Labs Laboratory Tests 06/13/17 06/13/17 06/13/17 09:46 09:46 09:46 WBC 6.9 Hgb 13.9 Hct 43.6 Plt Count 273 PT 10.6 INR 1.0 APTT 29.4 Sodium 139 Potassium 4.8 H Chloride 106 Carbon Dioxide 25 BUN 34 H Creatinine 1.12 H Est GFR (Non-Af Amer) 48 L Glucose 101 H - Imaging EKG: image reviewed (53bpm SB, borderline ST-T changes) Anesthesia Exam O2 Sat Height 1.51 m Height 1.51 m Weight 73.028 kg Weight 73.028 kg O2 Sat by Pulse Oximetry 99 O2 Sat by Pulse Oximetry 99 Vital Signs Temp Pulse Resp BP Pulse Ox 97.5 F L 58 18 166/73 99 06/18/17 10:04 06/18/17 10:04 06/18/17 10:04 06/18/17 10:04 06/18/17 10:04 Height: 4'11" Weight: 158# BMI = 32 NPO (# of Hours): Mnoc - HEENT Pupil (Motor): Pupils equal, EOMI Mallampati: II Teeth: Missing (multiple missing. several wide spaced gaps), Poor dentition Oral Opening: Greater than 3 - RAILROAD FIRER LOC: Oriented RAILROAD FIRER Motor: Normal RUE, Normal LUE, Normal RLE, Normal LLE, Normal Face RAILROAD FIRER Sensory: Normal: RUE, LUE, RLE, LLE, Face - Cardiac Rhythm: Regular Murmur: None - Pulmonary Breath Sounds: bilateral Clear Respiratory Effort: Symmetrical Anesthesia Assess/Plan ASA Score: 3 Modified [place] Scale for Level of Consciousness: Cooperative, oriented, and tranquil Anesthetic Plan: General Monitoring Plan: Standard Monitors Recovery Plan: PACU Anes Supervising Prov Stmt: Pt seen/evaluated, R&B discussed, questions answered and consent obtained. Gerry Dorado MD
[2017-06-18] MEDS ORDERED: Protamine Sulfate 50 MG/5 ML VIAL IVP ONE (12:29)
[2017-06-18] MEDS ORDERED: Bupivacaine-MPF 0.25% 10 ML VIAL ONE (12:29)
[2017-06-18] MEDS ORDERED: Heparin 1,000 UNITS/500 mL NS 1,000 ML ONE (12:30)
[2017-06-18] MEDS ORDERED: Vancomycin 1,000 MG VIAL ONE (12:30)
--- NOTE | 2017-06-18 12:31 | History & Physical Report ---
Date of Encounter: 06/18/17 Time of Encounter: 12:20 24 Hour HP Update - Instructions Instructions: If the History and Physical is less than 30 days old and was completed prior to A.M. admission and or procedure and has NOT been updated on calendar day of procedure please complete this update prior to performing procedure. - Update Patient reports changes in Medical Condition: No Changes in examination, assessment, or condition: No Changes in Medication: No Preop tests/diagnostics Reviewed: Yes Surgery Remains Indicated: Yes Consent for Planned Operative Procedure(s) Verified: Yes - Pre-Operative Checklist Preoperative Checklist Indicated: Yes Prophylactic Antibiotic Ordered: Yes (VANCOMYCIN DUE TO MRSA RISK) Home Medications Include Beta Wendie: No Beta Wendie Taken Today (Day of Surgery): No Beta Wendie Taken Yesterday (Day Prior to Surgery): No Is VTE Prophylaxis Indicated?: Yes
[2017-06-18] MEDS ORDERED: Heparin 1,000 UNITS/500 mL NS 500 ML ONE (13:53)
[2017-06-18] MEDS ORDERED: Lacri-Lube 3.5 GM TUBE ONE (13:53)
--- NOTE | 2017-06-18 14:17 | Anesthesia Procedures ---
Date of Encounter: 06/18/17 Time of Encounter: 13:15 Procedures: Anesthesia - Arterial Line Consent obtained: verbal consent Time out performed: Yes Sedation: Versed (mg): 1 (documented on anesthesia record) Supplemental Oxygen via Nasal Cannula (L/min): 15 (mask) Size (Gauge): 20 Length (inches): 1 3/4 Technique Used: sterile prep, direct puncture technique Post-Procedure: line taped into place, dry sterile dressing placed Patient tolerated procedure: well, no complications Complications: none Site: Radial R Vitals: see anesthesia record
[2017-06-18] MEDS ORDERED: *HR* Morphine 10 MG/ML VIAL ONE (14:45)
--- NOTE | 2017-06-18 17:02 | Operative Note ---
Date of procedure: 06/18/17 Pre-op diagnosis: 80-99% Right internal carotid artery stenosis Post-op diagnosis: same Procedure: Right carotid endarterectomy with hemashield patch angioplasty. Complications: None Anesthesia: BRENTA Surgeon: Luciano Valdez Estimated blood loss (cc): 200 Specimen: Right carotid plaque Condition: stable Disposition: PACU Procedure in Detail: Indications: The patient is a 67 year old female with a history of hypertension who was found to have an 80-99% right internal carotid artery stenosis. A right carotid endarterectomy was recommended to reduce her risk of stroke. Procedure: The patient was identified in the preoperative area. The risks, benefits, and alternatives of the procedure were discussed and all questions were answered. The patient was then taken to the operating room and placed in supine position on the operating table. After induction of general endotracheal anesthesia, she was cleaned and draped in normal sterile fashion. A longitudinal incision was made along the anterior border of the right sternocleidomastoid muscle. Hemostasis was obtained via electrocautery. Through a process of blunt, sharp, and electrocautery dissection, the platysma was traversed. The jugular vein was identified. The facial vein was clamped, divided, tied off with a 2-0 silk suture ligature. The jugular vein was then retracted to expose the carotid bifurcation. The patient received 2000 units of heparin intravenously at this time. Proximal dissection of the common and external carotid arteries were performed circumferentially. Dissection of the internal carotid was performed circumferentially. Vessels loops were passed around the internal and external carotid and an umbilical tape was passed from the common carotid artery. The patient received additional 3000 units of heparin intravenously. Additional heparin was given throughout the case to maintain adequate anticoagulation. After waiting adequate time for the heparin to circulate, the vessels were occluded and a longitudinal arteriotomy was made into the common carotid artery extending into the internal carotid beyond the plaque. Vigorous pulsatile retrograde flow was noted from the internal carotid artery upon release of the loop; therefore, no shunt was placed. A dental Armstrong was used to perform a standard endarterectomy. Proximal and distal endpoints were inspected. No elevated flaps were noted. Additional heparin was given throughout the procedure to maintain adequate anticoagulation. A Hemashield patch was cut to fit the defect and sutured in place with running 6 -0 Prolene. Prior to completing the closure, each vessel was flushed and then reoccluded. Heparinized saline was infused into the lumen. The patch was completed. Flow was restored in the external carotid artery, followed the common carotid artery, lastly the internal carotid artery was opened. A low resistance arterialized signal was present within the internal carotid artery beyond the patch. Thrombin and Gelfoam were used to aid in hemostasis. Meticulous hemostasis was obtained throughout the wound with electrocautery. Platelet rich and platelet poor plasma were infused into the wounds. The sternocleidomastoid was reapproximated with interrupted 3-0 Vicryl. Platelet rich and platelet poor plasma were infused into the wound. A TLS drain was brought through a separate stab incision and sutured in place with 0 silk suture. The platysma was reapproximated with running 3-0 Vicryl. Local anesthetic was infused in the skin. A 3-0 Monocryl was used to reapproximate the skin. Sterile dressing was applied. The patient was extubated, taken to the recovery room in stable condition.
--- NOTE | 2017-06-18 17:32 | Event Note ---
Date of Encounter: 06/18/17 Time of Encounter: 17:25 The patient was seen and examined. She is comfortable and responsive without complaints. Her neurologic exam is intact. She will be transferred to the floor. Her incision is soft. Her drain has decreased output. Keep head elavated and ice pack to right neck. Clear liquids tonight. Likely discharge tomorrow.
--- NOTE | 2017-06-18 17:42 | Anesthesia Evaluation Post Op ---
Date of Encounter: 06/18/17 Time of Encounter: 17:41 - Vital Signs Vital Signs: Vital Signs/O2 Sat, Most Current Temp Pulse Resp BP Pulse Ox 98.3 F 89 14 154/76 96 06/18/17 17:25 06/18/17 17:25 06/18/17 17:25 06/18/17 17:25 06/18/17 17:25 - Lungs Lungs: Clear Ascult./Percussion - Airway Airway: Non-obstructed - Cardiovascular Regular Rate - Mental Status Mental Status: Alert & Oriented, Answers Appropriately - Pain Pain Scale: 0 Pain Scale used: Numeric (1 - 10) - Nausea Vomiting Nausea Vomiting: Not Present - Hydration Hydration: Ice chips, Potts catheter - Discharge PostOp Status: Transfer Patient to floor
[2017-06-18] MEDS ORDERED: Ondansetron 4 MG/2 ML VIAL IVP PRN (18:21)
[2017-06-18] MEDS ORDERED: Acetaminophen 325 MG TABLET PO PRN (18:21)
[2017-06-18] MEDS ORDERED: Naloxone 0.4 MG/ML INJ IVP PRN (18:21)
[2017-06-18] MEDS ORDERED: *HR* HYDROcodone/Acet 5/325 mg TABLET PO PRN (18:21)
[2017-06-18] MEDS: *HR* Morphine 2 MG/ML SYRINGE IVP PRN (19:00)
[2017-06-18] MEDS: *HR* Metoprolol 5 MG/5 ML VIAL IVP SCH (19:03)
[2017-06-18] MEDS ORDERED: ceFAZolin 2,000 MG in D5% in Water 100 ML IVPB SCH (20:00)
[2017-06-18] MEDS: ceFAZolin 2,000 MG in D5% in Water 100 ML IVPB SCH (21:35)
[2017-06-19] MEDS: *HR* Metoprolol 5 MG/5 ML VIAL IVP SCH ×5 (00:04→23:58)
[2017-06-19] MEDS: *HR* Morphine 2 MG/ML SYRINGE IVP PRN ×3 (00:04→11:34)
[2017-06-19] MEDS ORDERED: Vancomycin 1,250 MG in D5% in Water 250 ML IVPB ONE (01:00)
[2017-06-19] MEDS: ceFAZolin 2,000 MG in D5% in Water 100 ML IVPB SCH (03:51)
[2017-06-19] MEDS ORDERED: *HR* Heparin 5,000 UNIT/ML VIAL SQ SCH (06:00)
--- NOTE | 2017-06-19 07:45 | Discharge Summary ---
Date of Encounter: 06/20/17 Time of Encounter: 07:30 - Discharge Diagnosis (1) Carotid stenosis Priority: Primary Status: Chronic Comments: The patient is postoperative day #2 after a right carotid endarterectomy. Her incision is healing, her neck is soft, no hematoma is present. She has expected ecchymosis. She has no neurologic deficits. She is tolerating herdiet and her pain is controlled. Her drain was removed. She will be discharged today. Qualifiers: Laterality: bilateral Qualified Code(s): I65.23 - Occlusion and stenosis of bilateral carotid arteries (2) HTN (hypertension) Priority: Secondary Status: Chronic Comments: She was counseled regarding atherosclerotic risk factor reduction. Qualifiers: Hypertension type: essential hypertension Qualified Code(s): I10 - Essential (primary) hypertension (3) Mixed hyperlipidemia Priority: Secondary Status: Chronic (4) CKD (chronic kidney disease), stage III Priority: Secondary Status: Chronic - Discharge Medications Prescriptions: HYDROcodone/Acet 5/325 mg [[place] 5-325 mg] 1 tab PO Q4H PRN #25 tab PRN Reason: Postoperative Pain Home Medications: Escitalopram [Lexapro] 20 mg PO DAILY 04/28/17 [History] Omeprazole [PriLOSEC] 20 mg PO DAILY 04/28/17 [History] Atorvastatin [Lipitor] 40 mg PO HS #30 tablet 05/01/17 [Rx] Clopidogrel [Plavix] 75 mg PO DAILY #30 tablet 05/01/17 [Rx] Albuterol Sulfate [Albuterol Inhaler] 2 puff IH Q6HR PRN 05/28/17 [History] Lisinopril [Zestril] 40 mg PO QAM 06/18/17 [History] Lisinopril-HCTZ 20-12.5 [Prinzide 20-12.5] 1 each PO QPM 06/18/17 [History] HYDROcodone/Acet 5/325 mg [[place] 5-325 mg] 1 tab PO Q4H PRN #25 tab 06/19/17 [Rx ] Allergies/Adverse Reactions: Allergies aspirin Allergy (Verified 06/18/17 10:24) Hives *PATIENT STATES FORGOT WHAT REACTION WAS HAPPENED MANY YEARS AGO 06.18.17 azithromycin [From Zithromax Z-Toni] Adverse Reaction (Verified 06/18/17 10:24) See Comments patient states that it is ineffective and "does not work" Penicillins [PCN] Adverse Reaction (Verified 06/18/17 10:24) Hives *PATIENT STATES FORGOT WHAT REACTION WAS HAPPENED MANY YEARS AGO 06.18.17 diuretics Allergy (Uncoded 06/18/17 10:24) See Comments *PATIENT STATES FORGOT WHAT REACTION WAS HAPPENED MANY YEARS AGO 06.18.17 Date of admission: 06/18/17 18:22 Primary care physician: Bruce Bolden MD Procedure(s) Performed: Right carotid endarterectomy Discharging clinician: Luciano Valdez Anticipated date of discharge: 06/20/17 - Patient Status Disposition: Home, Self-Care Condition: Good Functional capacity at discharge: independent ambulation Overall status at discharge: patient is back to baseline - Discharge Instructions Follow Up With: Bruce Bolden MD [Primary Care Provider] - Luciano Valdez MD [Partnered Physician] - 07/29/17 2:20 pm - Hospital Course Hospital course: Ms. Bello is a 67 year old female with a history of carotid stenosis. She was admitted on 06/18/17 and underwent a right carotid endarterectomy. She tolerated the procedure well. On postoperative day #1 she started a diet. Her pain was controlled with intravenous and oral analgesics. She was able to tolerate a diet throughout the day. On postoperative day #2, she was feeling better with good pain control. She had no focal neurologic deficits. She had expected ecchymosis due to her Clopidogrel. She was discharged in stable condition on posopterative day #2 without complications. - Time Spent with Patient Total time spent providing and/or coordinating discharge services: Exam Vital Signs, Last 4 Hours Temp Pulse Resp BP Pulse Ox 06/19/17 05:11 96 06/19/17 03:50 98.5 F 61 16 149/73 96 General: Present: Conversant, No Apparent Distress HEENT: Present: Trachea midline, Pupils equal Neck: Present: Other (incision celan dry and intact, expected ecchymosis, no hematoma). Absent: JVD, Tracheal deviation Cardiac: Present: Reg Rate and Rhythm Lungs: Present: Normal Breath Sounds Neuro: Present: Alert and responsive, No focal deficits noted, Motor nerves grossly intact, Sensory nerves grossly intact Abdomen: Present: Soft Vascular: Present: Normal capillary refill Skin: Present: No rashes noted on visualized skin Musculoskeletal: Present: No Chest Wall Tenderness - VTE Documentation of Mechanical Device: Intermittent pneumatic compression device
[2017-06-19] MEDS ORDERED: Ketorolac 30 MG/ML VIAL IVP ONE (08:03)
[2017-06-19] MEDS: Lisinopril 20 MG TABLET PO SCH (11:27)
[2017-06-19] MEDS: *HR* OxyCODONE Immed Rel 5 MG TABLET PO PRN ×2 (13:13→19:27)
[2017-06-19] MEDS ORDERED: Lisinopril-HCTZ 20-12.5mg TABLET PO SCH (18:00)
--- NOTE | 2017-06-19 23:26 | Vascular/[facility] Progress Note ---
Date of Encounter: 06/19/17 Time of Encounter: 07:45 - Assessment and plan (1) Carotid stenosis Status: Chronic The patient is postoperative day #1 after a right carotid endarterectomy. She tolerated the procedure well. She has nofocal neurologic deficits. Her drain will be left in today. She will begin a diet. She will receive toradol for pain control this morning. Qualifiers: Laterality: bilateral Qualified Code(s): I65.23 - Occlusion and stenosis of bilateral carotid arteries (2) COPD (chronic obstructive pulmonary disease) Status: Acute Qualifiers: COPD type: chronic bronchitis Chronic bronchitis type: simple Qualified Code(s): J41.0 - Simple chronic bronchitis (3) Mixed hyperlipidemia Status: Chronic (4) HTN (hypertension) Status: Chronic Qualifiers: Hypertension type: essential hypertension Qualified Code(s): I10 - Essential (primary) hypertension - Subjective Interval history: The patient reports incisional neck pain. She has not been taking oral analgesics or oral fluids. She denies any neurologic deficits. She denies chest pain or shortness of breath. Vital Signs, Last 4 Hours Temp Pulse Resp BP Pulse Ox 06/19/17 19:56 98.0 F 68 18 130/58 93 06/19/17 19:30 61 - Physical Examination General: Present: Conversant HEENT: Present: Trachea midline, Pupils equal Neck: Present: Other (incision clean, dry and intact without erythema or drainage, no hematoma, expected echhymosis around the incision, drain with serosanguinous fluid). Absent: JVD Lungs: Present: Normal Breath Sounds Neuro: Present: Alert and responsive, No focal deficits noted Vascular: Present: Normal capillary refill. Absent: Cyanosis, Edema Abdomen: Present: Soft - VTE Documentation of Mechanical Device: Intermittent pneumatic compression device Consult Discharge Plan - Plan Instructions: Hydrocodone/Acetaminophen (By mouth), Carotid Endarterectomy (DC) Additional Instructions: If you have questions that are not answered by these instructions, please call your nurse or doctor. You have just had Carotid Endarterectomy surgery to remove harmful plaque from your carotid arteries. Risk Factors * If you smoke, STOP. Smoking or tobacco use significantly increases your risk of carotid artery disease because nicotine causes the arteries to narrow or constrict. It also causes fats to stick to th artery. Your chances of having a stroke are greatly increased if you continue to smoke. Fr more information call the patient education line for smoking cessation 9-440-QSCS-NOW. Lifting * Do not lift anything over 5 pounds or a half (1/2) gallon of milk. * Do not strain or flex your neck backwards. Bathing * If you still have a neck dressing keep it clean and dry. * It is okay to take a tub bath. Avoid soaking your incision. Activity * You may walk or clim stairs as tolerated Driving * Do not drive for one week or until your follow-up appointment. Diet as tolerated Site Care * If you have fartun, leave incision open to air. * If you have steri-strips, let them fall off. Do not pull them off. * Clean with soap and water. Contact your doctor if: * Your neck feels swollen or you have trouble swallowing when you eat or drink. * Your incision becomes red or has yellow or green drainage (pus). * You develop a fever greater than 101 degrees. * If you have questions or concerns. Bleeding * Although the risks of bleeding is minimal, it can happen. If you have any bleeding, apply firm pressure over your incision site. If the bleeding does not stop call 911 and continue to hold pressure. DO NOT DRIVE YOURSELF to the hospital. * To prevent bleeding, apply pressure to the site for 2 days when coughing, sneezing or laughing. Referrals: Luciano Valdez MD [Partnered Physician] - 07/29/17 2:20 pm Bruce Bolden MD [Primary Care Provider] - 06/23/17 2:15 pm Prescriptions: HYDROcodone/Acet 5/325 mg [[place] 5-325 mg] 1 tab PO Q4H PRN #25 tab PRN Reason: Postoperative Pain
[2017-06-20] MEDS: *HR* OxyCODONE Immed Rel 5 MG TABLET PO PRN ×2 (01:23→07:53)
[2017-06-20] MEDS: *HR* Metoprolol 5 MG/5 ML VIAL IVP SCH (05:57)
[2017-06-20 06:48] VITALS: BP 168/70
[2017-06-20] MEDS: Lisinopril 20 MG TABLET PO SCH (07:53)
== END 2017-06-20 12:02 | disposition home or self-care (01) | DRG 39 ==
LOC: SAMDAY 09:37 → 2NNU 18:22
PROVIDERS: ADMIT Surgery; ATTEND Surgery

== ENCOUNTER 2017-08-19 11:12 | Inpatient (IN) ==
--- NOTE | 2017-08-19 11:25 | Emergency Department Note ---
Disposition Clinical Impression: Bradycardia Dyspnea Qualifiers: Dyspnea type: shortness of breath Qualified Code(s): R06.02 - Shortness of breath UTI (urinary tract infection) Qualifiers: Urinary tract infection type: acute cystitis Hematuria presence: without hematuria Qualified Code(s): N30.00 - Acute cystitis without hematuria Disposition: Admitted As Inpatient Condition: Fair Time of Disposition: 13:32 General Adult HPI - General Chief complaint: ED Recheck/Abnormal Lab/Rx Stated complaint: Sandeep from PCP Time Seen by Provider: 08/19/17 11:20 Source: patient Mode of arrival: ambulatory Limitations: no limitations Nursing Notes Reviewed: Yes Vital Signs Reviewed: Yes - History of Present Illness HPI Narrative: 67-year-old female who presents to emergency department complaining of generalized weakness exertional dyspnea bradycardia. The patient was seen yesterday and had an echo done per the family doctor and she was noted to have a heart rate at 40. The family doctor wanted to send her to the ER yesterday but the patient refused. Patient has had worsening exertional dyspnea for the last several weeks. Review of medical records indicates an echocardiogram done yesterday shows normal wall motion no valvular disease EF of 60%. Pt Subjective Complaint: Exertional dyspnea Onset (ago): day(s) Pain Scale: 0 - Related Data Home Medications Medication Instructions Recorded Confirmed Escitalopram [Lexapro] 20 mg PO DAILY 04/28/17 08/19/17 Omeprazole [PriLOSEC] 20 mg PO DAILY 04/28/17 08/19/17 Albuterol Sulfate [Albuterol 2 puff IH Q6HR PRN 05/28/17 08/19/17 Inhaler] Lisinopril [Zestril] 40 mg PO QAM 06/18/17 08/19/17 Lisinopril-HCTZ 20-12.5 [Prinzide 1 each PO QPM 06/18/17 08/19/17 20-12.5] Previous Rx's Medication Instructions Recorded Atorvastatin [Lipitor] 40 mg PO HS #30 tablet 05/01/17 Clopidogrel [Plavix] 75 mg PO DAILY #30 tablet 05/01/17 Allergies Allergy/AdvReac Type Severity Reaction Status Date / Time aspirin Allergy Hives Verified 08/19/17 11:14 azithromycin AdvReac See Verified 08/19/17 11:14 [From Zithromax Z-Toni] Comments Penicillins [PCN] AdvReac Hives Verified 08/19/17 11:14 diuretics Allergy See Uncoded 06/18/17 10:24 Comments All systems ED: reviewed and negative except as stated. Constitutional: Denies: fever, chills, weakness, weight change Eyes: Denies: eye pain, eye discharge, vision change ENT ED: Denies: ear pain, throat pain, dental pain, hearing loss, epistaxis, congestion, dysphagia Cardiovascular: Reports: dyspnea on exertion. Denies: chest pain, palpitations , edema, syncope Respiratory: Denies: cough, dyspnea, wheezes, hemoptysis, stridor Gastrointestinal: Denies: abdominal pain, nausea, vomiting, diarrhea, constipation, hematemesis, melena, hematochezia Genitourinary: Denies: dysuria, frequency, hematuria, discharge Musculoskeletal: Denies: back pain, neck pain, arthralgia, myalgia Integumentary: Denies: rash, abrasion, lesions Neurological: Reports: weakness (Generalized). 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 - Social History Smoking Status: Never smoker Smokeless Tobacco Status: No Alcohol use: Reports: none Drug use: Reports: none Physical Exam - General Limitations: no limitations General appearance: alert, in no apparent distress - Head Head exam: atraumatic, normocephalic, normal inspection - Eye Eye exam: Present: normal appearance, PERRL, EOMI - ENT ENT exam: normal exam, normal oropharynx, mucous membranes moist - Neck Neck exam: Present: normal inspection, full ROM, trachea midline - Chest Chest inspection: Present: normal inspection, symmetric chest wall rise - Respiratory Respiratory exam: Present: normal lung sounds bilaterally - Cardiovascular Cardiovascular exam: Present: normal rhythm, bradycardia - Abdominal Exam Abdominal exam: Present: soft, Non-Tender. Absent: tenderness, distention, guarding, rebound, rigidity - Extremities Exam Extremities exam: Present: normal inspection, full ROM. Absent: tenderness, pedal edema - Expanded Lower Extremity Exam Neurovascular/Tendon exam: Absent: motor deficit, sensory deficit, tendon deficit Gait: observed and normal - Back Exam Back exam: Present: normal inspection, full ROM. Absent: tenderness - Neurological Exam Neurological exam: Present: alert, oriented X3 - Psychiatric Psychiatric exam: Present: normal affect, normal mood - Skin Skin exam: Present: warm, dry, intact, normal color Course - Reevaluation(s) Reevaluation #1: 67-year-old with exertional dyspnea who has generalized weakness gets significantly short of breath with ambulation. Initial troponin is negative her BNP was 116 her chest x-ray was clear whether admit her for further evaluation. Time: 13:35 - Consultations Consultation #1: Discussed with coral Charles. Time: 13:36 Vital Signs Temperature 97.7 F 08/19/17 11:14 Pulse Rate 54 08/19/17 11:14 Respiratory Rate 15 08/19/17 11:14 Blood Pressure 130/68 08/19/17 11:14 O2 Sat by Pulse Oximetry 96 08/19/17 11:14 Temperature 97.7 F 08/19/17 11:14 Pulse Rate 56 08/19/17 14:26 Respiratory Rate 16 08/19/17 14:26 Blood Pressure 135/67 08/19/17 14:26 O2 Sat by Pulse Oximetry 99 08/19/17 14:26 Oxygen Delivery Oxygen Delivery Room Air Medical Decision Making - Lab Data Lab results reviewed: Yes I reviewed the patient's lab results. Result diagrams: 08/19/17 11:43 08/19/17 11:43 Lab Results 08/19/17 08/19/17 08/19/17 Range/Units 11:43 11:43 11:43 WBC 10.2 (4.3-11.1) K/mcL RBC 4.15 (3.82-4.97) M/mcL Hgb 12.2 (11.5-15.4) g/dL Hct 37.9 (35.3-44.9) % MCV 91.3 (83.0-100.0) fL MCH 29.4 (28.0-33.3) pg MCHC 32.2 (31.6-35.5) g/dL RDW 14.4 (11.5-14.5) % Plt Count 251 (140-400) K/mcL MPV 11.4 (9.4-12.4) fL Immature Gran % 0.3 (0-4) % Seg Neutrophils % 59.6 % Lymphocytes % 30.0 % Monocytes % 6.6 % Eosinophils % 2.9 % Basophils % 0.6 % Neutrophils # 6.1 (1.6-8.9) K/mcL Lymphocytes # 3.1 (0.6-4.6) K/mcL Monocytes # 0.7 (0.0-1.3) K/mcL Eosinophils # 0.3 (0.0-0.6) K/mcL Basophils # 0.1 (0.0-0.2) K/mcL Sodium 141 (136-145) mEq/L Potassium 3.8 (3.5-4.5) mEq/L Chloride 109 (98-109) mEq/L Carbon Dioxide 24 (19-29) mEq/L BUN 47 H (7-20) mg/dL Creatinine 1.30 H (0.57-1.11) mg/dL Est GFR ( Amer) 49 L (> 60) Est GFR (Non-Af Amer) 41 L (> 60) BUN/Creatinine Ratio 36 H (6-26) Glucose 95 (70-99) mg/dL Calculated Osmolality 304 H (280-300) Calcium 9.3 (8.6-10.8) mg/dL Troponin I (0-0.03) ng/mL B-Natriuretic Peptide (0-100) pg/mL Urine Color Yellow (Yellow) Urine Clarity Cloudy A (Clear) Urine pH 5.5 (5.0-8.0) pH Units Ur Specific Lavinia 1.023 (1.010-1.025) Urine Protein Negative (Neg-Trace) mg/dL Urine Glucose (UA) Normal (Normal) mg/dL Urine Ketones Negative (Negative) mg/dL Urine Blood Negative (Negative) Urine Nitrite Negative (Negative) Urine Bilirubin Negative (Negative) Urine Urobilinogen Normal (Normal) mg/dL Ur Leukocyte Esterase Moderate H (Negative) Urine Microscopic RBC 0-3 (0-3) per hpf Urine Microscopic WBC 15-30 H (0-3) per hpf Ur Squamous Epith Cells Many H (None-Few) per lpf Urine Bacteria Few (None-Few) per hpf Hyaline Casts None Seen (None-Few) per lpf Ur Culture Indicated? YES A (NO) 08/19/17 08/19/17 Range/Units 11:43 11:43 WBC (4.3-11.1) K/mcL RBC (3.82-4.97) M/mcL Hgb (11.5-15.4) g/dL Hct (35.3-44.9) % MCV (83.0-100.0) fL MCH (28.0-33.3) pg MCHC (31.6-35.5) g/dL RDW (11.5-14.5) % Plt Count (140-400) K/mcL MPV (9.4-12.4) fL Immature Gran % (0-4) % Seg Neutrophils % % Lymphocytes % % Monocytes % % Eosinophils % % Basophils % % Neutrophils # (1.6-8.9) K/mcL Lymphocytes # (0.6-4.6) K/mcL Monocytes # (0.0-1.3) K/mcL Eosinophils # (0.0-0.6) K/mcL Basophils # (0.0-0.2) K/mcL Sodium (136-145) mEq/L Potassium (3.5-4.5) mEq/L Chloride (98-109) mEq/L Carbon Dioxide (19-29) mEq/L BUN (7-20) mg/dL Creatinine (0.57-1.11) mg/dL Est GFR ( Amer) (> 60) Est GFR (Non-Af Amer) (> 60) BUN/Creatinine Ratio (6-26) Glucose (70-99) mg/dL Calculated Osmolality (280-300) Calcium (8.6-10.8) mg/dL Troponin I 0.01 (0-0.03) ng/mL B-Natriuretic Peptide 116 H (0-100) pg/mL Urine Color (Yellow) Urine Clarity (Clear) Urine pH (5.0-8.0) pH Units Ur Specific Lavinia (1.010-1.025) Urine Protein (Neg-Trace) mg/dL Urine Glucose (UA) (Normal) mg/dL Urine Ketones (Negative) mg/dL Urine Blood (Negative) Urine Nitrite (Negative) Urine Bilirubin (Negative) Urine Urobilinogen (Normal) mg/dL Ur Leukocyte Esterase (Negative) Urine Microscopic RBC (0-3) per hpf Urine Microscopic WBC (0-3) per hpf Ur Squamous Epith Cells (None-Few) per lpf Urine Bacteria (None-Few) per hpf Hyaline Casts (None-Few) per lpf Ur Culture Indicated? (NO) - Radiology Data Radiology results reviewed: Yes I reviewed the patient's radiology results. Chest X-Ray 08/19/17 11:21 IMPRESSION: 1. No acute cardiopulmonary abnormality 2. Moderate hiatal hernia. D/ / Tay Hudson MD / Tay Hudson MD Interpreting Provider: Tay Hudson MD - EKG Data EKG #1 EKG attestation: Yes I reviewed and interpreted this EKG. Rate: bradycardia Rhythm: NSR Interpretation: no acute changes
[2017-08-19 11:52] LABS: Bilirubin,Urine Negative (Negative); Blood,Urine Negative (Negative); Clarity,Urine Cloudy (Clear); Color,Urine Yellow (Yellow); Glucose,Urine (UA) Normal (Normal); Ketones,Urine Negative (Negative); Leukocyte Esterase,Urine Moderate (Negative); Nitrite,Urine Negative (Negative); PH,Urine 5.5 pH Units (5.0-8.0); Protein,Urine Negative (Neg-Trace); Specific Gravity,Urine 1.023 (1.010-1.025); Urobilinogen,Urine Normal (Normal)
[2017-08-19 11:53] LABS: Bacteria,Urine Few per hpf (None-Few); Basophils # 0.1 K/mcL (0.0-0.2); Basophils % 0.6 %; Eosinophils # 0.3 K/mcL (0.0-0.6); Eosinophils % 2.9 %; Hematocrit 37.9 % (35.3-44.9); Hemoglobin 12.2 g/dL (11.5-15.4); Hyaline Casts,Urine None Seen per lpf (None-Few); Immature Granulocytes % 0.3 % (0-4); Lymphocytes # 3.1 K/mcL (0.6-4.6); Mean Corpuscular HGB Conc 32.2 g/dL (31.6-35.5); Mean Corpuscular Hemoglobin 29.4 pg (28.0-33.3); Mean Corpuscular Volume 91.3 fL (83.0-100.0); Mean Platelet Volume 11.4 fL (9.4-12.4); Monocytes # 0.7 K/mcL (0.0-1.3); Monocytes % 6.6 %; Neutrophils # 6.1 K/mcL (1.6-8.9); Platelet Count 251 K/mcL (140-400); RBC,Urine 0-3 per hpf (0-3); Red Blood Count 4.15 M/mcL (3.82-4.97); Red Cell Distribution Width 14.4 % (11.5-14.5); Segmented Neutrophils % 59.6 %; Squamous Epithelial Cell,Urine Many per lpf (None-Few); WBC,Urine 15-30 per hpf (0-3)
[2017-08-19 12:04] LABS: Calcium 9.3 mg/dL (8.6-10.8); Potassium 3.8 mEq/L (3.5-4.5)
[2017-08-19] MEDS ORDERED: Levofloxacin 500 MG/100 ML 500 MG/100 ML BAG IVPB ONE (13:31)
[2017-08-19] MEDS ORDERED: Cetirizine HCl 5 MG/5 ML UDC PO STA (13:33)
[2017-08-19] MEDS ORDERED: predniSONE 20 MG TABLET PO SCH (16:00)
--- NOTE | 2017-08-19 16:15 | Internal Med History&Physical ---
Date of Encounter: 08/19/17 Time of Encounter: 16:10 Assessment and Plan (1) Bradycardia Current visit: Yes Status: Acute This is sinus bradycardia. No evidence of heart block. She is often any rate blocking medications. Will monitor. Check thyroid function (2) COPD (chronic obstructive pulmonary disease) Current visit: No Status: Acute Mild exacerbation. Will start the patient on prednisone, nebulizer treatment, and Levaquin for acute bronchitis. Qualifiers: COPD type: chronic bronchitis Chronic bronchitis type: simple Qualified Code(s): J41.0 - Simple chronic bronchitis (3) Carotid stenosis Current visit: No Status: Chronic Status post carotid endarterectomy. She is on Plavix. No focal neurological deficits. Qualifiers: Laterality: bilateral Qualified Code(s): I65.23 - Occlusion and stenosis of bilateral carotid arteries Internal Medicine - H&P: HPI Chief complaint: sob History of present illness: Ms. Bello is a 67 year old female with history of COPD probably due to secondhand smoke, hypertension, right carotid stenosis status post carotid endarterectomy presents to the emergency room today with a complaint of shortness of breath. For the past few days patient has been short of breath with minimal exertion, has been feeling weak and lethargic especially when she exerts herself. She has been having cough sputum production. She denies fevers chills. She has seen her physician yesterday and was found during an echocardiogram to be bradycardia in the 40s and was advised to come to the emergency room that she deleted that today. She denies any focal weakness. Past Med Surg Social Fam HX - Past Medical History Medical history: arthritis, asthma, coronary artery disease, hypertension Psychiatric history: depression - Past Surgical History Surgical History: SUSAN/BSO - Social History Smoking Status: Never smoker Smokeless Tobacco Status: No Alcohol use: none Drug use: none - Family History Mother Hx Family Cardiac Disorders: Yes Hx Family Cancer: Yes (ovary) Father Hx Family Cancer: Yes (liver) Hx Family Endocrine Disorder: Yes Internal Medicine - H&P: Meds Escitalopram [Lexapro] 20 mg PO DAILY 04/28/17 [History] Omeprazole [PriLOSEC] 20 mg PO DAILY 04/28/17 [History] Atorvastatin [Lipitor] 40 mg PO HS #30 tablet 05/01/17 [Rx] Clopidogrel [Plavix] 75 mg PO DAILY #30 tablet 05/01/17 [Rx] Albuterol Sulfate [Albuterol Inhaler] 2 puff IH Q6HR PRN 05/28/17 [History] Lisinopril [Zestril] 40 mg PO QAM 06/18/17 [History] Lisinopril-HCTZ 20-12.5 [Prinzide 20-12.5] 1 each PO QPM 06/18/17 [History] 3 Allergy/AdvReac Type Severity Reaction Status Date / Time aspirin Allergy Hives Verified 08/19/17 11:14 azithromycin AdvReac See Verified 08/19/17 11:14 [From Zithromax Z-Toni] Comments Penicillins [PCN] AdvReac Hives Verified 08/19/17 11:14 diuretics Allergy See Uncoded 06/18/17 10:24 Comments All Systems PM: A 10-system review of systems was performed and is negative for pertinent findings except as documented above in the HPI. Review of systems: 10 point review systems is negative except for HPI - Constitutional Vitals: Temp Pulse Resp BP Pulse Ox 97.9 F 53 18 122/73 97 08/19/17 15:01 08/19/17 15:01 08/19/17 15:01 08/19/17 15:01 08/19/17 15:01 Exam: Gen.: patient is alert oriented times 3 cardiac: normal S1 S2 no additional sounds or murmurs chest: expiratory wheeze, coarse breath sound abdomen soft nontender nondistended normal bowel sounds lower extremity no swelling. Neuro: no new focal deficits Internal Med - H&P Results - Labs CBC & Chem 7: 08/19/17 11:43 08/19/17 11:43
[2017-08-19] MEDS ORDERED: traMADol 50 MG TABLET PO ONE (18:00)
[2017-08-19] MEDS ORDERED: Lisinopril-HCTZ 20-12.5mg TABLET PO SCH (18:00)
[2017-08-19] MEDS ORDERED: 0.9 % Sodium Chloride 500 ML IVC ONE (20:28)
[2017-08-19] MEDS ORDERED: 0.9 % Sodium Chloride 500 ML ONE (20:32)
[2017-08-19] MEDS: Ipratropium/Albuterol Neb 3 ML IH SCH (21:34)
--- NOTE | 2017-08-19 22:19 | Electrocardiograph Report ---
[facility] Test Date: 2017-08-19 Pat Name: Winifred Bello Department: 102 Room: [id number] Gender: F Players Assistant: Chiquis : 1950 Requested By: Ike Vaughn Order Number: [id number] Reading MD: Bhanu Mccullough MD Measurements Intervals Newborn Rate: 50 P: 104 AK: 165 QRS: 9 QRSD: 103 T: 77 QT: 446 QTc: 419 Interpretive Statements SINUS BRADYCARDIA LEFT VENTRICULAR HYPERTROPHY AND ST-T CHANGE Electronically Signed On 08-19-2017 22:17:29 EDT by Bhanu Mccullough MD
[2017-08-20] MEDS: Ipratropium/Albuterol Neb 3 ML IH SCH ×3 (04:30→15:59)
[2017-08-20 04:42] LABS: Basophils % 0.1 %; Hematocrit 34.6 % (35.3-44.9); Hemoglobin 11.5 g/dL (11.5-15.4); Immature Granulocytes % 0.3 % (0-4); Mean Corpuscular HGB Conc 33.2 g/dL (31.6-35.5); Mean Corpuscular Hemoglobin 29.9 pg (28.0-33.3); Mean Corpuscular Volume 89.9 fL (83.0-100.0); Monocytes # 0.1 K/mcL (0.0-1.3); Monocytes % 0.8 %; Neutrophils # 7.7 K/mcL (1.6-8.9); Platelet Count 226 K/mcL (140-400); Red Blood Count 3.85 M/mcL (3.82-4.97); Red Cell Distribution Width 14.3 % (11.5-14.5); Segmented Neutrophils % 87.8 %
[2017-08-20 05:10] LABS: Magnesium 1.6 mg/dL (1.6-2.6)
[2017-08-20 05:24] LABS: Thyroid Stimulating Hormone 0.476 mcIU/mL (0.350-4.840)
[2017-08-20] MEDS ORDERED: Acetaminophen 325 MG TABLET PO PRN (06:33)
[2017-08-20] MEDS: levoFLOXacin 750 MG TABLET PO SCH (09:10)
[2017-08-20] MEDS: predniSONE 20 MG TABLET PO SCH (09:10)
--- NOTE | 2017-08-20 10:07 | Internal Med Progress Note ---
<Girish Camacho - Last Filed: 08/20/17 14:38> Date of Encounter: 08/20/17 Time of Encounter: 09:00 - Assessment and plan (1) Bradycardia Current Visit: Yes Status: Acute Assessment and plan: Symptomatic bradycardia, improved The patient's heart rate has remained between 50 and 75 She is on no medications that would result in decreased heart rate There is no apparent heart block on ECG Echo completed 08/18/17 demonstrates LVEF 60%, moderate LVH with mild diastolic dysfunction, but no valvular disease We will continue to monitor at this time (2) Chest pain Current Visit: Yes Status: Acute Assessment and plan: Left-sided chest pain with radiation to the jaw and arm at rest Patient admitted to chest pain during patient's on rounds today EKG was immediately ordered and interpreted as sinus tachycardia with nonspecific ST-T wave changes/depression in inferolateral with her typical changes in aVR initial troponin was 0.03, troponins will be trended patient received 1 inch nitroglycerin paste and reported improvement in symptoms within minutes we will schedule stress test for the morning Qualifiers: Chest pain type: unspecified Qualified Code(s): R07.9 - Chest pain, unspecified (3) COPD (chronic obstructive pulmonary disease) Current Visit: Yes Status: Acute Assessment and plan: Acute exacerbation of COPD, improved The patient is experiencing increased sputum production for 1 week Oral prednisone decreased to 40mg PO for 5 days duration. Day 2 Levaquin for dual treatment of COPD exacerbation and UTI, Day 2 Duonebs PRN Qualifiers: COPD type: chronic bronchitis Chronic bronchitis type: simple Qualified Code(s): J41.0 - Simple chronic bronchitis (4) Carotid stenosis Current Visit: No Status: Chronic Assessment and plan: Carotid stenosis s/p R carotid endarterctomy Qualifiers: Laterality: bilateral Qualified Code(s): I65.23 - Occlusion and stenosis of bilateral carotid arteries (5) Dyspnea Current Visit: Yes Status: Acute Assessment and plan: Dyspnea on exertion for 1 week duration, likely secondary to COPD exacerbation vs. symptomatic bradycardia O2 saturation 97% on room air Continue prednisone + levaquin for copd exacerbation Qualifiers: Dyspnea type: shortness of breath Qualified Code(s): R06.02 - Shortness of breath; R06.00 - Dyspnea, unspecified; R06.01 - Orthopnea (6) Acute kidney injury Current Visit: Yes Status: Acute Assessment and plan: Serum creatinine 1.26, BUN 35, GFR 42 Patient's baseline serum creatinine is difficult to assess. In May 2017 the patient had a 1.12 creatinine, however the range was between 0.7 and 0.98 as recently as April 2017. The patient is taking adequate oral intake We will avoid any nephrotoxic agents, and monitor kidney function (7) UTI (urinary tract infection) Current Visit: Yes Status: Acute Assessment and plan: Uncomplicated urinary tract infection, demonstrated on UA at time of admission There is no history of microbial samples from the urine She has been treated for COPD exacerbation and UTI with Levaquin WBC 8.7, afebrile, within normal limits Continue to monitor Qualifiers: Urinary tract infection type: acute cystitis Hematuria presence: without hematuria Qualified Code(s): N30.00 - Acute cystitis without hematuria (8) DVT prophylaxis Current Visit: Yes Status: Acute Assessment and plan: Start SQ Heparin - Subjective Interval history: The patient is resting comfortably in bed at time of examination. She explains that she is not currently feeling short of breath, but she does experience dyspnea with even minimal exertion, such as walking across a room. She says that she has not been coughing much overnight. She does complain of acute eye pain bilaterally, with stinging and itching. She thinks that it is because of allergies. - Constitutional Vitals: Temp Pulse Resp BP Pulse Ox 97.9 F 64 16 106/54 97 08/20/17 06:42 08/20/17 06:42 08/20/17 06:42 08/20/17 06:42 08/20/17 06:42 General appearance: Present: A&O X 3, no acute distress, obese, answers questions appropriately - Head Head exam: Present: atraumatic, normocephalic - Eye Eye exam: Present: conjunctival injection, periorbital swelling, PERRL, conjuntiva pink, sclera anicteric Pupils: Present: PERRL Additional comments: Mild periorbital erythema is present, with minimal conjunctival injection bilaterally. The patient blinks excessively throughout duration of exam. - Neck Neck exam general surgery: Present: supple, trachea midline. Absent: lymphadenopathy - Respiratory Respiratory exam: Present: decreased breath sounds (L>R), CTAB. Absent: accessory muscle use, rales, rhonchi, wheezes - Cardiovascular Cardiovascular exam: Present: RRR, +S1, +S2, systolic murmur. Absent: diastolic murmur, gallop, irregular rhythm, JVD, rubs Additional comments: 3/6 Systolic ejection murmur heard most prominently at the Left sternal border over 2nd intercostal space, with radiation to carotids b/l - GI/Abdominal GI/Abdominal exam: Present: normal bowel sounds, soft, no peritoneal signs. Absent: distended, tenderness - Extremities Exam Extremities exam: Present: warm, radial pulses palpable and symmetrical. Absent : calf tenderness, cyanotic, pedal edema - Neurological Exam Neurological exam: Present: CN II-XII intact, oriented X3, no focal deficits. Absent: pronater drift, facial droop, speech deficit - Skin Skin exam: Present: dry, intact Internal Medicine: Result - Labs CBC & Chem 7: 08/20/17 04:10 08/20/17 04:10 Labs: Short CBC 08/20/17 Range/Units 04:10 WBC 8.7 (4.3-11.1) K/mcL Hgb 11.5 (11.5-15.4) g/dL Hct 34.6 L (35.3-44.9) % Plt Count 226 (140-400) K/mcL Neutrophils # 7.7 (1.6-8.9) K/mcL BMP 08/20/17 04:10 Sodium 141 Potassium 4.0 Chloride 112 H Carbon Dioxide 21 BUN 35 H D Creatinine 1.26 H Glucose 191 H Calcium 9.0 - EKG Interpretation EKG Interpreted by Myself: Yes (LVH) EKG shows normal: sinus rhythm, ST-T waves (ST-T wave depression/non-specific changes in inferolateral leads with reciprocal changes in aVR) Rate: tachycardia Consult Discharge Plan - Plan Referrals: Bruce Bolden MD [Primary Care Provider] - 08/22/17 10:00 am () <Rogerio Santacruz - Last Filed: 08/20/17 17:58> Date of Encounter: 08/20/17 - Assessment and plan (1) Acute exacerbation of chronic obstructive pulmonary disease (COPD) Current Visit: Yes Status: Acute (2) COPD (chronic obstructive pulmonary disease) Current Visit: Yes Status: Acute Qualifiers: COPD type: chronic bronchitis Chronic bronchitis type: simple Qualified Code(s): J41.0 - Simple chronic bronchitis (3) UTI (urinary tract infection) Current Visit: Yes Status: Acute Qualifiers: Urinary tract infection type: acute cystitis Hematuria presence: without hematuria Qualified Code(s): N30.00 - Acute cystitis without hematuria (4) Bradycardia Current Visit: Yes Status: Acute (5) HTN (hypertension) Current Visit: No Status: Chronic Qualifiers: Hypertension type: essential hypertension Qualified Code(s): I10 - Essential (primary) hypertension (6) Mixed hyperlipidemia Current Visit: No Status: Chronic (7) Acute kidney injury Current Visit: Yes Status: Acute - Constitutional Vitals: Temp Pulse Resp BP Pulse Ox 99.2 F 93 16 138/59 96 08/20/17 15:25 08/20/17 15:25 08/20/17 16:00 08/20/17 15:25 08/20/17 16:00 Internal Medicine: Result - Labs CBC & Chem 7: 08/20/17 04:10 08/20/17 04:10 Labs: Short CBC 08/20/17 Range/Units 04:10 WBC 8.7 (4.3-11.1) K/mcL Hgb 11.5 (11.5-15.4) g/dL Hct 34.6 L (35.3-44.9) % Plt Count 226 (140-400) K/mcL Neutrophils # 7.7 (1.6-8.9) K/mcL BMP 08/20/17 04:10 Sodium 141 Potassium 4.0 Chloride 112 H Carbon Dioxide 21 BUN 35 H D Creatinine 1.26 H Glucose 191 H Calcium 9.0 Cardiac Enzymes 08/20/17 Range/Units 13:55 Troponin I 0.03 (0-0.03) ng/mL - Attending Attestation I examined this patient and my medical decision-making was reviewed with the Resident Physician on 08/20/17. I agree with the documented findings, disposition and treatment plan as described except to the extent set forth below. Ms Bello is currently admitted for acute exac COPD and bradycardia. She is now tachycardic at times. She remains moderate to high risk due to potential for worsening resp status. Ms Bello is feeling shaky after aerosols. She is having some L chest discomfort as well. Troponin negative. Slight ST changes on repeat EKG. No fever or chills. Exam alert. Comfortable Heart tachy but regular Lungs clear now Abd soft Mucus membranes dry I/P 1. Hypoxia 2. COPD Further diagnoses and plan as above.
[2017-08-20] MEDS ORDERED: Nitroglycerin 1 INCH/GM PACKET TP ONE (13:23)
[2017-08-20] MEDS: Acetaminophen 325 MG TABLET PO PRN (13:38)
[2017-08-20] MEDS ORDERED: Nitroglycerin 1 INCH/GM PACKET TP SCH (15:00)
[2017-08-20] MEDS ORDERED: Ipratropium/Albuterol Neb 3 ML IH PRN (16:22)
[2017-08-20] MEDS: Lisinopril-HCTZ 20-12.5mg TABLET PO SCH (17:43)
[2017-08-20] MEDS ORDERED: *HR* Heparin 5,000 UNIT/ML VIAL SQ SCH (18:00)
[2017-08-20] MEDS ORDERED: *HR* Heparin 5,000 UNIT/ML VIAL IVP PRN (18:35)
[2017-08-20] MEDS ORDERED: Heparin 25,000 UNIT/500 ML D5W 25,000 UNIT/500 ML MLS IVC SCH (18:45)
[2017-08-20 19:20] LABS: Hematocrit 32.9 % (35.3-44.9); Hemoglobin 10.8 g/dL (11.5-15.4); Mean Corpuscular HGB Conc 32.8 g/dL (31.6-35.5); Mean Corpuscular Hemoglobin 29.3 pg (28.0-33.3); Mean Corpuscular Volume 89.2 fL (83.0-100.0); Mean Platelet Volume 11.9 fL (9.4-12.4); Platelet Count 228 K/mcL (140-400); Red Blood Count 3.69 M/mcL (3.82-4.97); Red Cell Distribution Width 14.5 % (11.5-14.5)
[2017-08-20 19:31] LABS: Prothrombin Time 11.1 Seconds (9.4-12.1)
[2017-08-20 19:33] LABS: Activated Partial Thrombo Time 26.2 Seconds (26.0-36.0)
[2017-08-21 06:46] LABS: Basophils % 0.1 %; Hematocrit 33.9 % (35.3-44.9); Hemoglobin 10.9 g/dL (11.5-15.4); Immature Granulocytes % 0.6 % (0-4); Immature Platelets 10.2 % (1.1-6.1); Lymphocytes # 2.4 K/mcL (0.6-4.6); Lymphocytes % 11.7 %; Mean Corpuscular HGB Conc 32.2 g/dL (31.6-35.5); Mean Corpuscular Hemoglobin 29.3 pg (28.0-33.3); Mean Corpuscular Volume 91.1 fL (83.0-100.0); Mean Platelet Volume 12.2 fL (9.4-12.4); Monocytes # 1.4 K/mcL (0.0-1.3); Monocytes % 6.8 %; Neutrophils # 16.8 K/mcL (1.6-8.9); Platelet Count 228 K/mcL (140-400); Red Blood Count 3.72 M/mcL (3.82-4.97); Red Cell Distribution Width 14.9 % (11.5-14.5); Segmented Neutrophils % 80.8 %
[2017-08-21 06:58] LABS: Calcium 8.9 mg/dL (8.6-10.8); Potassium 3.7 mEq/L (3.5-4.5)
[2017-08-21] MEDS: Loratadine 10 MG TABLET PO SCH (09:09)
[2017-08-21] MEDS: predniSONE 20 MG TABLET PO SCH (09:11)
[2017-08-21 10:11] LABS: Heparin anti-factor XA UFH 0.94 IU/mL (0.30-0.70)
--- NOTE | 2017-08-21 10:21 | Cardiology Consult Note ---
Date of Encounter: 08/21/17 Time of Encounter: 10:18 Assessment and Plan (1) Elevated troponin Current Visit: Yes Status: Acute Mild troponin elevation, 0.01, 0.11, 0.15, 0.10. Mild in the setting of mild JED and COPD exacerbation verses NSTEMI. C/o chest pain last night. TTE 08/18/17 : showed Sinus bradycardia. Heart rate 40's. LVEF 60%. Moderate concentric left ventricular hypertrophy. Moderate left ventricular diastolic dysfunction. Normal right ventricular structure and function. Mild mitral regurgitation. No aortic stenosis (see Findings below for Doppler information). Mild tricuspid regurgitation. No pulmonary hypertension. Cardiat risk factors include HTN and PVD. I discussed proceeding with [facility] vs medical management. She agrees with [facility]. She is currently DNR-Arrest DNI. I discuss changing code status to full 24 hours around procedure and she agrees. Will allow 24 more hours for kidney function to improve. Patient also reports asa allergy. She developed hives as a child. Immunology was consulted for asa desensitization. (2) Bradycardia Current Visit: Yes Status: Acute HR noted to be in the 40's, sinus bradycardia during TTE 08/18/17. She is currently in the mid 50's. C/O mild dizziness and lack of energy. 24 hour telemetry review showed avg HR 73 bpm. Minimum HR was 48 bpm at 0830 am. No pauses or blocks seen. Avoid AV bonita blockers. (3) Chest pain Current Visit: Yes Status: Acute See plan above. Qualifiers: Chest pain type: unspecified Qualified Code(s): R07.9 - Chest pain, unspecified Discussion w patient/family: The assessment and plan as outlined above was discussed with the patient and/or family members who expressed understanding and agreement. All questions were answered. Thank you for involving us in the care of your patient. Please call with any questions. History of Present Illness Consult date: 08/21/17 Requesting physician: Rogerio Santacruz Consult reason: Chest pain, elevated troponin Chief complaint: Low heart rate History of present illness: Ms. Bello is a 67 year old female with a history of hypertension, COPD, and carotid artery disease s/p recent right CEA who presented to the hospital when she was found to have bradycardia during out-pt testing. She c/o ongoing fatigue and weakness for the past three months. An echocardiogram was ordered by her vascular surgeon due to her complaints. She was noted to have HR in the 40's during her exam. During her stay she was also diagnosed with COPD exacerbation and is currently taking steroids and nebulizer. Yesterday after taking an albuterol nebulizer she developed chest pain radiating to her left arm and palpitations. Symptoms lasted for about 15 minutes and resolved with NTG paste. Cardiology consulted for troponin elevation. She denies cardiac history. She did have a stress test for pre-operative evaluation in May that was negative. Past Med Surg Social Fam HX - Past Medical History Medical history: arthritis, asthma, hypertension Psychiatric history: depression - Past Surgical History Surgical History: SUSAN/BSO - Social History Smoking Status: Never smoker Smokeless Tobacco Status: No Alcohol use: none Drug use: none - Family History Mother Hx Family Cardiac Disorders: Yes Hx Family Cancer: Yes (ovary) Father Hx Family Cancer: Yes (liver) Hx Family Endocrine Disorder: Yes Medications and Allergies Escitalopram [Lexapro] 20 mg PO DAILY 04/28/17 [History] Omeprazole [PriLOSEC] 20 mg PO DAILY 04/28/17 [History] Atorvastatin [Lipitor] 40 mg PO HS #30 tablet 05/01/17 [Rx] Clopidogrel [Plavix] 75 mg PO DAILY #30 tablet 05/01/17 [Rx] Albuterol Sulfate [Albuterol Inhaler] 2 puff IH Q6HR PRN 05/28/17 [History] Lisinopril [Zestril] 40 mg PO QAM 06/18/17 [History] Lisinopril-HCTZ 20-12.5 [Prinzide 20-12.5] 1 each PO QPM 06/18/17 [History] 3 Allergy/AdvReac Type Severity Reaction Status Date / Time aspirin Allergy Hives Verified 08/19/17 11:14 azithromycin AdvReac See Verified 08/19/17 11:14 [From Zithromax Z-Toni] Comments Penicillins [PCN] AdvReac Hives Verified 08/19/17 11:14 diuretics Allergy See Uncoded 06/18/17 10:24 Comments All Systems Review: A 10-system review of systems was performed and is negative for pertinent findings except as documented above in the HPI. Physical Examination Vital Signs, Last 4 Hours Temp Pulse Resp BP Pulse Ox 08/21/17 07:02 98.2 F 55 16 121/71 98 General: Conversant, No Apparent Distress HEENT: Atraumatic, Normocephaly, Mucus Membranes Moist Neck: No JVD, Normal carotid pulses Cardiac: Reg Rate and Rhythm, Normal S1 and S2, No Murmur Lungs: Normal Breath Sounds, No Wheeze, Rales, Rhonchi Neuro: Alert and responsive, No focal deficits noted Abdomen: Soft, Non-Tender Skin: No rashes noted on visualized skin Musculoskeletal: No Chest Wall Tenderness Extremities: No Clubbing, No Cyanosis, No Edema, Normal Pulses Results 08/21/17 01:36 08/21/17 01:36 Lab Results 08/20/17 08/20/17 08/20/17 13:55 18:03 19:09 WBC 21.4 H D Hgb 10.8 L Hct 32.9 L Plt Count 228 INR APTT Sodium Potassium Chloride Carbon Dioxide BUN Creatinine Glucose Calcium Troponin I 0.03 0.11 H* 08/20/17 08/21/17 08/21/17 19:09 01:36 01:36 WBC 20.8 H Hgb 10.9 L Hct 33.9 L Plt Count 228 INR 1.0 APTT 26.2 Sodium Potassium Chloride Carbon Dioxide BUN Creatinine Glucose Calcium Troponin I 0.15 H* 08/21/17 08/21/17 08/21/17 01:36 01:59 09:12 WBC Hgb Hct Plt Count INR APTT 72.2 H D 146.0 H* D Sodium 141 Potassium 3.7 Chloride 110 H Carbon Dioxide 22 BUN 30 H Creatinine 1.21 H Glucose 122 H Calcium 8.9 Troponin I 08/21/17 09:12 WBC Hgb Hct Plt Count INR APTT Sodium Potassium Chloride Carbon Dioxide BUN Creatinine Glucose Calcium Troponin I 0.10 H* - Imaging and Cardiology Stress Test: report reviewed (05/2017- Gated EF 70%. Negative for ischemia or infarct.) Echo: report reviewed (Sinus bradycardia. Heart rate 40's. LVEF 60%. Moderate concentric left ventricular hypertrophy. Moderate left ventricular diastolic dysfunction. Normal right ventricular structure and function. Mild mitral regurgitation. No aortic stenosis (see Findings below for Doppler information). Mild tricuspid regurgitation. No pulmonary hypertension.) - EKG Interpretation EKG results cardiology: personally reviewed (Initial EKG showed sinus bradycardia, LVH. HR 50 bpm. EKG after chest pain showed SR with LVH.) Consult Discharge Plan - Plan Referrals: Bruce Bolden MD [Primary Care Provider] - 08/22/17 10:00 am ()
--- NOTE | 2017-08-21 11:44 | Internal Med Progress Note ---
<Girish Camacho - Last Filed: 08/21/17 15:00> Date of Encounter: 08/21/17 Time of Encounter: 08:30 - Assessment and plan (1) Bradycardia Current Visit: Yes Status: Acute Assessment and plan: Symptomatic bradycardia, improved Possibly secondary to ischemic cardiomyopathy, patient is scheduled for catheterization in the morning The patient's heart rate has remained between 50 and 75 She is on no medications that would result in decreased heart rate There is no apparent heart block on ECG Echo completed 08/18/17 demonstrates LVEF 60%, moderate LVH with mild diastolic dysfunction, but no valvular disease We will continue to monitor at this time (2) Chest pain Current Visit: Yes Status: Acute Assessment and plan: Left-sided chest pain with radiation to the jaw and arm at rest, resolved Troponins peaked this morning at 0.15, no longer symptomatic Heparin drip was initiated yesterday with elevated troponins Cardiology consultation, patient is interested in doing left heart catheterization tomorrow Patient has allergic reaction to aspirin and documented in past, allergy and immunology is consulted for challenge in a.m. (3) COPD (chronic obstructive pulmonary disease) Current Visit: Yes Status: Acute Assessment and plan: Acute exacerbation of COPD, improved The patient is experiencing increased sputum production for 1 week Oral prednisone decreased to 40mg PO for 5 days duration. Day 3 Levaquin for dual treatment of COPD exacerbation and UTI, Day 3 Duonebs PRN (4) Carotid stenosis Current Visit: No Status: Chronic Assessment and plan: Carotid stenosis s/p R carotid endarterctomy (5) Dyspnea Current Visit: Yes Status: Acute Assessment and plan: Dyspnea on exertion for 1 week duration, likely secondary to COPD exacerbation vs. symptomatic bradycardia O2 saturation 97% on room air Continue prednisone + levaquin for copd exacerbation (6) Acute kidney injury Current Visit: Yes Status: Acute Assessment and plan: Serum creatinine 1.21, BUN 30, GFR 44 Patient's baseline serum creatinine is difficult to assess. In May 2017 the patient had a 1.12 creatinine, however the range was between 0.7 and 0.98 as recently as April 2017. The patient is taking adequate oral intake We will avoid any nephrotoxic agents, and monitor kidney function Patient does have left heart catheterization scheduled for tomorrow, we will monitor kidney function closely (7) UTI (urinary tract infection) Current Visit: Yes Status: Acute Assessment and plan: Uncomplicated urinary tract infection, demonstrated on UA at time of admission There is no history of microbial samples from the urine She has been treated for COPD exacerbation and UTI with Levaquin day 3 Continue to monitor (8) DVT prophylaxis Current Visit: Yes Status: Acute Assessment and plan: Start SQ Heparin - Subjective Interval history: The patient is resting comfortably in bed at time of examination. She explains that she is not currently feeling short of breath, but she does experience dyspnea with even minimal exertion, such as walking across a room. She says that she has not been coughing much overnight. She does complain of acute eye pain bilaterally, with stinging and itching. She thinks that it is because of allergies. - Constitutional Vitals: Temp Pulse Resp BP Pulse Ox 98.3 F 55 18 138/66 96 08/21/17 11:34 08/21/17 11:34 08/21/17 11:34 08/21/17 11:34 08/21/17 11:34 General appearance: Present: A&O X 3, no acute distress, obese, answers questions appropriately Exam: - Head Head exam: Present: atraumatic, normocephalic - Eye Eye exam: Present: conjunctival injection, periorbital swelling, PERRL, conjuntiva pink, sclera anicteric Pupils: Present: PERRL Additional comments: Mild periorbital erythema is present, with minimal conjunctival injection bilaterally. The patient blinks excessively throughout duration of exam. - Neck Neck exam general surgery: Present: supple, trachea midline. Absent: lymphadenopathy - Respiratory Respiratory exam: Present: decreased breath sounds (L>R), CTAB. Absent: accessory muscle use, rales, rhonchi, wheezes - Cardiovascular Cardiovascular exam: Present: RRR +S1, +S2, systolic murmur. Absent: diastolic murmur, gallop, irregular rhythm, JVD, rubs Additional comments: 3/6 Systolic ejection murmur heard most prominently at the Left sternal border over 2nd intercostal space, with radiation to carotids b/l - GI/Abdominal GI/Abdominal exam: Present: normal bowel sounds, soft, no peritoneal signs. Absent: distended, tenderness - Extremities Exam Extremities exam: Present: warm, radial pulses palpable and symmetrical. Absent : calf tenderness, cyanotic, pedal edema - Neurological Exam Neurological exam: Present: CN II-XII intact, oriented X3, no focal deficits. Absent: pronater drift, facial droop, speech deficit - Skin Skin exam: Present: dry, intact Internal Medicine: Result - Labs CBC & Chem 7: 08/21/17 01:36 08/21/17 01:36 Labs: Short CBC 08/20/17 08/21/17 Range/Units 19:09 01:36 WBC 21.4 H D 20.8 H (4.3-11.1) K/mcL Hgb 10.8 L 10.9 L (11.5-15.4) g/dL Hct 32.9 L 33.9 L (35.3-44.9) % Plt Count 228 228 (140-400) K/mcL Neutrophils # 16.8 H (1.6-8.9) K/mcL BMP 08/21/17 01:36 Sodium 141 Potassium 3.7 Chloride 110 H Carbon Dioxide 22 BUN 30 H Creatinine 1.21 H Glucose 122 H Calcium 8.9 Cardiac Enzymes 08/20/17 08/20/17 08/21/17 Range/Units 13:55 18:03 01:36 Troponin I 0.03 0.11 H* 0.15 H* (0-0.03) ng/mL 08/21/17 Range/Units 09:12 Troponin I 0.10 H* (0-0.03) ng/mL - ABG Interpretation ABG results: PT/INR, D-dimer PT 11.1 Seconds (9.4-12.1) 08/20/17 19:09 Consult Discharge Plan - Plan Referrals: Bruce Bolden MD [Primary Care Provider] - 08/22/17 10:00 am () <Rogerio Santacruz - Last Filed: 08/21/17 17:35> Date of Encounter: 08/21/17 - Assessment and plan (1) Acute coronary syndrome Current Visit: Yes Status: Acute (2) Acute exacerbation of chronic obstructive pulmonary disease (COPD) Current Visit: Yes Status: Acute (3) COPD (chronic obstructive pulmonary disease) Current Visit: Yes Status: Acute Qualifiers: COPD type: chronic bronchitis Chronic bronchitis type: simple Qualified Code(s): J41.0 - Simple chronic bronchitis (4) UTI (urinary tract infection) Current Visit: Yes Status: Acute Qualifiers: Urinary tract infection type: acute cystitis Hematuria presence: without hematuria Qualified Code(s): N30.00 - Acute cystitis without hematuria (5) Bradycardia Current Visit: Yes Status: Acute (6) HTN (hypertension) Current Visit: No Status: Chronic Qualifiers: Hypertension type: essential hypertension Qualified Code(s): I10 - Essential (primary) hypertension (7) Mixed hyperlipidemia Current Visit: No Status: Chronic (8) Acute kidney injury Current Visit: Yes Status: Acute - Constitutional Vitals: Temp Pulse Resp BP Pulse Ox 97.8 F 61 18 123/70 97 08/21/17 15:45 08/21/17 15:45 08/21/17 15:45 08/21/17 15:45 08/21/17 15:45 Internal Medicine: Result - Labs CBC & Chem 7: 08/21/17 01:36 08/21/17 01:36 Labs: Short CBC 08/20/17 08/21/17 Range/Units 19:09 01:36 WBC 21.4 H D 20.8 H (4.3-11.1) K/mcL Hgb 10.8 L 10.9 L (11.5-15.4) g/dL Hct 32.9 L 33.9 L (35.3-44.9) % Plt Count 228 228 (140-400) K/mcL Neutrophils # 16.8 H (1.6-8.9) K/mcL BMP 08/21/17 01:36 Sodium 141 Potassium 3.7 Chloride 110 H Carbon Dioxide 22 BUN 30 H Creatinine 1.21 H Glucose 122 H Calcium 8.9 Cardiac Enzymes 08/20/17 08/21/17 08/21/17 Range/Units 18:03 01:36 09:12 Troponin I 0.11 H* 0.15 H* 0.10 H* (0-0.03) ng/mL - ABG Interpretation ABG results: PT/INR, D-dimer PT 11.1 Seconds (9.4-12.1) 08/20/17 19:09 - Attending Attestation I examined this patient and my medical decision-making was reviewed with the Resident Physician on 08/21/17. I agree with the documented findings, disposition and treatment plan as described except to the extent set forth below. Ms. Bello is currently admitted for acute exac COPD and ACS. She remains moderate to high risk due to potential for worsening resp and cardiac status. Ms Bello is doing OK. No further chest pain today. Remains on heparin drip. No fever or chills. No SOB today. Exam Alert Comfortable Mucus membranes dry Heart not tachy Lungs diminished with no wheeze Abd soft No edema I/P 1. ACS 2. COPD Further diagnoses and plan as above.
--- NOTE | 2017-08-21 15:02 | Allergy Consult Note ---
Date of Encounter: 08/21/17 Time of Encounter: 14:00 Assessment and Plan (1) History of allergy to aspirin Current Visit: Yes Status: Suspected (2) Urticaria due to drug allergy Current Visit: Yes Status: Suspected Patient has a history of acute urticaria after taking aspirin as a teenager. She believes she has had excedrin years ago after the urticaria episode. I don' t believe patient is allergic to aspirin. I would like to do a graded dose challenge tomorrow. I don't believe she requires desensitization and I feel more comfortable doing a graded challenge instead of a trial dose since it was many years ago that she tool the excedrin just in case she is mistakened. 1. I will give patient 1/100th of a dose, then 30 minutes later 1/10 dose, then observe for 30 minutes and then give full dose of 81mg. I will monitor for 30- 60 min after last dose. 2. I have explained risk and benefits to patient and she agrees with plan 3. I discussed plan with resident as well. 4. We will not need to move her to ICU for the challenge as this is low risk. History of Present Illness Reason for consult: Drug allergy Requesting physician: Omer Brennan History of present illness: Ms. Bello is a 67 year old female with a history of hypertension, COPD, and carotid artery disease who is requiring heart catherization. Cardiology would like patient to take aspirin prior to procedure and patient reports that when she was a teen she had hives quickly after taking aspirin. She did not have any difficulty breathing or closure of airway. She tolerates motrin at this time and also believes that she took excedrin years ago after the aspirin allergy and tolerated it well. Past Med Surg Social Fam HX - Past Medical History Medical history: arthritis, asthma, hypertension Psychiatric history: depression - Past Surgical History Surgical History: SUSAN/BSO - Social History Smoking Status: Never smoker Smokeless Tobacco Status: No Alcohol use: none Drug use: none - Family History Mother Hx Family Cardiac Disorders: Yes Hx Family Cancer: Yes (ovary) Father Hx Family Cancer: Yes (liver) Hx Family Endocrine Disorder: Yes Medications and Allergies Escitalopram [Lexapro] 20 mg PO DAILY 04/28/17 [History] Omeprazole [PriLOSEC] 20 mg PO DAILY 04/28/17 [History] Atorvastatin [Lipitor] 40 mg PO HS #30 tablet 05/01/17 [Rx] Clopidogrel [Plavix] 75 mg PO DAILY #30 tablet 05/01/17 [Rx] Albuterol Sulfate [Albuterol Inhaler] 2 puff IH Q6HR PRN 05/28/17 [History] Lisinopril [Zestril] 40 mg PO QAM 06/18/17 [History] Lisinopril-HCTZ 20-12.5 [Prinzide 20-12.5] 1 each PO QPM 06/18/17 [History] 3 Allergy/AdvReac Type Severity Reaction Status Date / Time aspirin Allergy Hives Verified 08/19/17 11:14 azithromycin AdvReac See Verified 08/19/17 11:14 [From Zithromax Z-Toni] Comments Penicillins [PCN] AdvReac Hives Verified 08/19/17 11:14 diuretics Allergy See Uncoded 06/18/17 10:24 Comments ROS Allergy - Constitutional Constitutional ROS: no headache(s) - EENT Nose, mouth and throat: no lip swelling, no throat swelling, no tongue swelling - Cardiovascular Cardiovascular ROS IM: chest pain - Respiratory no cough - Integumentary Integumentary: no rash - Allergic/Immunologic no tongue swelling, no throat swelling Allergy Exam Initial Vital Signs Temp Pulse Resp BP Pulse Ox 97.7 F 54 15 130/68 96 08/19/17 11:14 08/19/17 11:14 08/19/17 11:14 08/19/17 11:14 08/19/17 11:14 - General physical appearance well nourished, no distress - ENT normal nares, normal mucosa - Neck trachea midline - Respiratory normal expansion, normal respiratory effort, clear to auscultation - Integumentary no rash Results - Labs 08/21/17 01:36 08/21/17 01:36 Abnormal lab results WBC 20.8 K/mcL (4.3-11.1) H 08/21/17 01:36 RBC 3.72 M/mcL (3.82-4.97) L 08/21/17 01:36 Hgb 10.9 g/dL (11.5-15.4) L 08/21/17 01:36 Hct 33.9 % (35.3-44.9) L 08/21/17 01:36 RDW 14.9 % (11.5-14.5) H 08/21/17 01:36 Neutrophils # 16.8 K/mcL (1.6-8.9) H 08/21/17 01:36 Monocytes # 1.4 K/mcL (0.0-1.3) H 08/21/17 01:36 Immature Plt Fraction 10.2 % (1.1-6.1) H 08/21/17 01:36 APTT 146.0 Seconds (26.0-36.0) H* D 08/21/17 09:12 Heparin Anti-Xa, Unfract 0.94 IU/mL (0.30-0.70) H 08/21/17 09:12 Chloride 110 mEq/L (98-109) H 08/21/17 01:36 BUN 30 mg/dL (7-20) H 08/21/17 01:36 Creatinine 1.21 mg/dL (0.57-1.11) H 08/21/17 01:36 Est GFR ( Amer) 54 (> 60) L 08/21/17 01:36 Est GFR (Non-Af Amer) 44 (> 60) L 08/21/17 01:36 Glucose 122 mg/dL (70-99) H 08/21/17 01:36 Troponin I 0.10 ng/mL (0-0.03) H* 08/21/17 09:12 B-Natriuretic Peptide 116 pg/mL (0-100) H 08/19/17 11:43 Urine Clarity Cloudy (Clear) A 08/19/17 11:43 Ur Leukocyte Esterase Moderate (Negative) H 08/19/17 11:43 Urine Microscopic WBC 15-30 per hpf (0-3) H 08/19/17 11:43 Ur Squamous Epith Cells Many per lpf (None-Few) H 08/19/17 11:43 Ur Culture Indicated? YES (NO) A 08/19/17 11:43 Diabetes panel 08/21/17 Range/Units 01:36 Sodium 141 (136-145) mEq/L Potassium 3.7 (3.5-4.5) mEq/L Chloride 110 H (98-109) mEq/L Carbon Dioxide 22 (19-29) mEq/L BUN 30 H (7-20) mg/dL Creatinine 1.21 H (0.57-1.11) mg/dL Glucose 122 H (70-99) mg/dL Calcium 8.9 (8.6-10.8) mg/dL Calcium panel 08/21/17 Range/Units 01:36 Calcium 8.9 (8.6-10.8) mg/dL Pituitary panel 08/21/17 Range/Units 01:36 Sodium 141 (136-145) mEq/L Potassium 3.7 (3.5-4.5) mEq/L Chloride 110 H (98-109) mEq/L Carbon Dioxide 22 (19-29) mEq/L BUN 30 H (7-20) mg/dL Creatinine 1.21 H (0.57-1.11) mg/dL Glucose 122 H (70-99) mg/dL Calcium 8.9 (8.6-10.8) mg/dL Adrenal panel 08/21/17 Range/Units 01:36 Sodium 141 (136-145) mEq/L Potassium 3.7 (3.5-4.5) mEq/L Chloride 110 H (98-109) mEq/L Carbon Dioxide 22 (19-29) mEq/L BUN 30 H (7-20) mg/dL Creatinine 1.21 H (0.57-1.11) mg/dL Glucose 122 H (70-99) mg/dL Calcium 8.9 (8.6-10.8) mg/dL All other labs normal. Consult Discharge Plan - Plan Referrals: Bruce Bolden MD [Primary Care Provider] - 08/22/17 10:00 am ()
[2017-08-21] MEDS ORDERED: Aspirin desensitization 1 mg/ml PO ONE (15:11)
[2017-08-21] MEDS: Lisinopril-HCTZ 20-12.5mg TABLET PO SCH (18:10)
[2017-08-21] MEDS: Acetaminophen 325 MG TABLET PO PRN (18:10)
[2017-08-22 04:39] LABS: Basophils % 0.3 %; Eosinophils # 0.1 K/mcL (0.0-0.6); Eosinophils % 0.4 %; Hematocrit 36.6 % (35.3-44.9); Hemoglobin 11.7 g/dL (11.5-15.4); Immature Granulocytes % 0.7 % (0-4); Lymphocytes # 3.7 K/mcL (0.6-4.6); Lymphocytes % 24.9 %; Mean Corpuscular Hemoglobin 29.1 pg (28.0-33.3); Mean Platelet Volume 11.9 fL (9.4-12.4); Monocytes # 0.9 K/mcL (0.0-1.3); Monocytes % 6.1 %; Neutrophils # 10.2 K/mcL (1.6-8.9); Platelet Count 229 K/mcL (140-400); Red Blood Count 4.02 M/mcL (3.82-4.97); Red Cell Distribution Width 15.1 % (11.5-14.5); Segmented Neutrophils % 67.6 %
[2017-08-22 04:59] LABS: BUN/Creatinine Ratio 28 (6-26); Blood Urea Nitrogen 30 mg/dL (7-20); Calcium 8.7 mg/dL (8.6-10.8); Carbon Dioxide 23 mEq/L (19-29); Chloride 108 mEq/L (98-109); Glucose 97 mg/dL (70-99); Osmolality,Calculated 292 (280-300); Potassium 3.8 mEq/L (3.5-4.5); Sodium 138 mEq/L (136-145); eGFR For African Americans > 60 (> 60); eGFR For Non-African Americans 51 (> 60)
[2017-08-22] MEDS ORDERED: Aspirin desensitization 1 mg/ml PO SCH (07:00)
[2017-08-22] MEDS: Loratadine 10 MG TABLET PO SCH (07:53)
[2017-08-22] MEDS: predniSONE 20 MG TABLET PO SCH (07:55)
[2017-08-22] MEDS: levoFLOXacin 750 MG TABLET PO SCH (07:55)
[2017-08-22] MEDS ORDERED: Aspirin desensitization 1 mg/ml PO ONE ×2 (08:00)
--- NOTE | 2017-08-22 08:30 | Electrocardiograph Report ---
[place] [id number] Test Date: 2017-08-20 Pat Name: Winifred Bello Department: 111 Room: [id number] Gender: F [employer]: : 1950 Requested By: Rogerio Santacruz Order Number: [id number] Reading MD: Aftab Gilbert MD Measurements Intervals [place] Rate: 82 P: 46 MN: 172 QRS: 8 QRSD: 109 T: 117 QT: 386 QTc: 425 Interpretive Statements SINUS RHYTHM Electronically Signed On 08-22-2017 8:28:41 EDT by Aftab Gilbert MD
[2017-08-22] MEDS ORDERED: Aspirin 81 MG TAB.CHEW PO ONE (09:00)
--- NOTE | 2017-08-22 09:42 | Internal Med Progress Note ---
<Girish Camacho - Last Filed: 08/22/17 13:45> Date of Encounter: 08/22/17 Time of Encounter: 06:30 - Assessment and plan (1) Bradycardia Current Visit: Yes Status: Acute Assessment and plan: Symptomatic bradycardia, improved Patient did experience episodic bradycardia overnight, however heart rate has ranged from 53-103 today. 08/21/17 Symptomatic bradycardia, improved Possibly secondary to ischemic cardiomyopathy, patient is scheduled for catheterization in the morning The patient's heart rate has remained between 50 and 75 She is on no medications that would result in decreased heart rate There is no apparent heart block on ECG Echo completed 08/18/17 demonstrates LVEF 60%, moderate LVH with mild diastolic dysfunction, but no valvular disease We will continue to monitor at this time (2) Chest pain Current Visit: Yes Status: Acute Assessment and plan: 08/22/17 Left sided chest pain with radiation to the jaw and arm at rest, resolved Patient underwent aspirin challenge this morning, has no allergy to aspirin Per cardiology, the patient is scheduled for left heart catheterization today Renal function is improved 08/21/17 Left-sided chest pain with radiation to the jaw and arm at rest, resolved Troponins peaked this morning at 0.15, no longer symptomatic Heparin drip was initiated yesterday with elevated troponins Cardiology consultation, patient is interested in doing left heart catheterization tomorrow Patient has allergic reaction to aspirin and documented in past, allergy and immunology is consulted for challenge in a.m. Qualifiers: Chest pain type: unspecified Qualified Code(s): R07.9 - Chest pain, unspecified (3) COPD (chronic obstructive pulmonary disease) Current Visit: Yes Status: Acute Assessment and plan: 08/22/17 Acute exacerbation of COPD, improved Patient is on prednisone Day 4 Patient is on Levaquin Day 4 We will discontinue both tomorrow 08/21/17 Acute exacerbation of COPD, improved The patient is experiencing increased sputum production for 1 week Oral prednisone decreased to 40mg PO for 5 days duration. Day 3 Levaquin for dual treatment of COPD exacerbation and UTI, Day 3 Duonebs PRN Qualifiers: COPD type: chronic bronchitis Chronic bronchitis type: simple Qualified Code(s): J41.0 - Simple chronic bronchitis (4) Carotid stenosis Current Visit: No Status: Chronic Assessment and plan: Carotid stenosis s/p R carotid endarterctomy Qualifiers: Laterality: bilateral Qualified Code(s): I65.23 - Occlusion and stenosis of bilateral carotid arteries (5) Dyspnea Current Visit: Yes Status: Acute Assessment and plan: Dyspnea on exertion for 1 week duration, likely secondary to COPD exacerbation vs. symptomatic bradycardia O2 saturation 97% on room air Continue prednisone + levaquin for copd exacerbation Qualifiers: Dyspnea type: shortness of breath Qualified Code(s): R06.02 - Shortness of breath; R06.00 - Dyspnea, unspecified; R06.01 - Orthopnea (6) Acute kidney injury Current Visit: Yes Status: Acute Assessment and plan: 08/22/17 Serum creatinine 1.07, BUN 30, GFR 28 Patient will undergo left heart catheterization today, expecting small increase in creatinine We will follow up in the morning 08/21/17 Serum creatinine 1.21, BUN 30, GFR 44 Patient's baseline serum creatinine is difficult to assess. In May 2017 the patient had a 1.12 creatinine, however the range was between 0.7 and 0.98 as recently as April 2017. The patient is taking adequate oral intake We will avoid any nephrotoxic agents, and monitor kidney function Patient does have left heart catheterization scheduled for tomorrow, we will monitor kidney function closely (7) UTI (urinary tract infection) Current Visit: Yes Status: Resolved Assessment and plan: Resolved Qualifiers: Urinary tract infection type: acute cystitis Hematuria presence: without hematuria Qualified Code(s): N30.00 - Acute cystitis without hematuria (8) DVT prophylaxis Current Visit: Yes Status: Acute Assessment and plan: Start SQ Heparin - Subjective Interval history: The patient is resting comfortably in bed at time of examination. She says that she has not been seen by allergy. She has no acute complaints although does have some anxiety about the [facility] procedure this morning. - Constitutional Vitals: Temp Pulse Resp BP Pulse Ox 97.6 F 53 16 120/67 97 08/22/17 06:53 08/22/17 06:53 08/22/17 06:53 08/22/17 06:53 08/22/17 06:53 General appearance: Present: A&O X 3, no acute distress, obese, answers questions appropriately Exam: - Eye Eye exam: Present: conjunctival injection, periorbital swelling, PERRL, conjuntiva pink, sclera anicteric Pupils: Present: PERRL - Neck Neck exam general surgery: Present: supple, trachea midline. Absent: lymphadenopathy - Respiratory Respiratory exam: Present: decreased breath sounds (L>R), CTAB. Absent: accessory muscle use, rales, rhonchi, wheezes - Cardiovascular Cardiovascular exam: Present: RRR +S1, +S2, systolic murmur. Absent: diastolic murmur, gallop, irregular rhythm, JVD, rubs Additional comments: 3/6 Systolic ejection murmur not heard on exam today. - GI/Abdominal GI/Abdominal exam: Present: normal bowel sounds, soft, no peritoneal signs. Absent: distended, tenderness - Extremities Exam Extremities exam: Present: warm, radial pulses palpable and symmetrical. Absent : calf tenderness, cyanotic, pedal edema - Neurological Exam Neurological exam: Present: CN II-XII intact, oriented X3, no focal deficits. Absent: pronater drift, facial droop, speech deficit - Skin Skin exam: Present: dry, intact Internal Medicine: Result - Labs CBC & Chem 7: 08/22/17 04:08 08/22/17 04:08 Labs: Short CBC 08/22/17 Range/Units 04:08 WBC 15.0 H (4.3-11.1) K/mcL Hgb 11.7 (11.5-15.4) g/dL Hct 36.6 (35.3-44.9) % Plt Count 229 (140-400) K/mcL Neutrophils # 10.2 H (1.6-8.9) K/mcL BMP 08/22/17 04:08 Sodium 138 Potassium 3.8 Chloride 108 Carbon Dioxide 23 BUN 30 H Creatinine 1.07 Glucose 97 Calcium 8.7 - ABG Interpretation ABG results: PT/INR, D-dimer PT 11.1 Seconds (9.4-12.1) 08/20/17 19:09 - VTE Reasons for not Prescribing Prophylaxis: Not indicated-Anticoagulated or INR therapeutic Consult Discharge Plan - Plan Referrals: Omer Brennan, UTILIZATION REVIEW SPECIALIST [Advanced Practice Nurse] - (Cardiology office is setting you up with an appt they will call you with appt date & time.) Bruce Bolden MD [Primary Care Provider] - 08/22/17 10:00 am () <Rogerio Santacruz - Last Filed: 08/22/17 18:32> Date of Encounter: 08/22/17 - Assessment and plan (1) Acute coronary syndrome Current Visit: Yes Status: Ruled-out (2) Acute exacerbation of chronic obstructive pulmonary disease (COPD) Current Visit: Yes Status: Acute (3) COPD (chronic obstructive pulmonary disease) Current Visit: Yes Status: Acute Qualifiers: COPD type: chronic bronchitis Chronic bronchitis type: simple Qualified Code(s): J41.0 - Simple chronic bronchitis (4) UTI (urinary tract infection) Current Visit: Yes Status: Resolved Qualifiers: Urinary tract infection type: acute cystitis Hematuria presence: without hematuria Qualified Code(s): N30.00 - Acute cystitis without hematuria (5) Bradycardia Current Visit: Yes Status: Acute (6) HTN (hypertension) Current Visit: No Status: Chronic Qualifiers: Hypertension type: essential hypertension Qualified Code(s): I10 - Essential (primary) hypertension (7) Mixed hyperlipidemia Current Visit: No Status: Chronic (8) Acute kidney injury Current Visit: Yes Status: Acute - Constitutional Vitals: Temp Pulse Resp BP Pulse Ox 97.6 F 57 16 129/82 96 08/22/17 15:12 08/22/17 15:12 08/22/17 15:12 08/22/17 15:12 08/22/17 15:12 Internal Medicine: Result - Labs CBC & Chem 7: 08/22/17 04:08 08/22/17 04:08 Labs: Short CBC 08/22/17 Range/Units 04:08 WBC 15.0 H (4.3-11.1) K/mcL Hgb 11.7 (11.5-15.4) g/dL Hct 36.6 (35.3-44.9) % Plt Count 229 (140-400) K/mcL Neutrophils # 10.2 H (1.6-8.9) K/mcL BMP 08/22/17 04:08 Sodium 138 Potassium 3.8 Chloride 108 Carbon Dioxide 23 BUN 30 H Creatinine 1.07 Glucose 97 Calcium 8.7 - ABG Interpretation ABG results: PT/INR, D-dimer PT 11.1 Seconds (9.4-12.1) 08/20/17 19:09 - Attending Attestation I examined this patient and my medical decision-making was reviewed with the Resident Physician on 08/22/17. I agree with the documented findings, disposition and treatment plan as described except to the extent set forth below. Ms Bello is currently admitted for acute exac COPD and chest pain. She is to have cardiac cath today. She remains moderate to high risk due to potential for worsening respiratory status. Ms Bello is awaiting cardiac cath. No new issues overnight. No fever or chills. No SOB. Exam Alert. Comfortable Heart not tachy Lungs no wheeze Abd soft I/P 1. COPD 2. Chest pain Cath today Further diagnoses and plan as above.
--- NOTE | 2017-08-22 09:48 | Event Note ---
Date of Encounter: 08/22/17 Time of Encounter: 09:45 - Cardiology Event Note Patient awaiting asa desensitization this morning. Plan for LHC after. R/B/A of [facility] reviewed and she voiced understanding. Patient agreed to changing code status to full code for [facility] procedure. JED improved. All questions answered.
--- NOTE | 2017-08-22 11:58 | Allergy Procedure Note ---
Date of procedure: 08/22/17 Pre-op diagnosis: possible aspirin allergy Post-op diagnosis: other (patient is not allergic to aspirin) Procedure: Graded oral challenge to Aspirin Patient has no complaints this morning. She is ready for challenge. Written consent obtained. 1. 0.81mg was given PO and patient was observed x 30 minutes. Patient denied any rash, itiching, or difficulty breathing, exam unchanged. 2. 8.1mg Aspirin was given PO and patient was observed x 30 minutes. Patient denied any rash, itiching, or difficulty breathing, exam unchanged. 3. 81mg Aspirin was given PO and patient was observed x 45 minutes. Patient denied any rash, itiching, or difficulty breathing, exam unchanged. Patient is not allergic to aspirin. This was a challenge and not a desensitization. Anesthesia: none Condition: stable
[2017-08-22] MEDS ORDERED: 0.9 % Sodium Chloride 1,000 ML ONE ×2 (12:29→14:01)
[2017-08-22] MEDS ORDERED: Heparin 1,000 UNITS/500 mL NS 500 ML ONE ×2 (12:30→14:01)
[2017-08-22] MEDS ORDERED: *HR* Heparin 10,000 UNIT/10 ML VIAL ONE ×2 (12:30→14:01)
[2017-08-22] MEDS ORDERED: Nitroglycerin 1,000 MCG/10 ML VIAL IV ONE ×2 (12:30→14:34)
--- NOTE | 2017-08-22 14:11 | Pre-Sedation Evaluation ---
Pre-sedation evaluation - Pre-sedation checklist Date of procedure: 08/22/17 Procedure: Left Heart Catheterization Recent Vitals: Last Vital Signs Temp 97.8 F 08/22/17 11:09 Pulse 68 08/22/17 11:09 Resp 16 08/22/17 11:09 BP 126/83 08/22/17 11:09 Pulse Ox 97 08/22/17 11:09 H&P (including ROS) documented in medical record: Yes Previous reaction to sedatives/anesthetics: No Dietary Status: NPO after Midnight Airway Assessment: Patient can open mouth completely, TMJ function normal, Micrognathia (under-bite, receding chin) absent, Neck with adequate range of motion Dentition: No loose teeth or bridges Possible difficult airway: No ASA Classification *see protocol: CLASS II-Mild systemic disease Plan of Care: Pt appropriate candidate for procedure/moderate/conscious sedation , Risks/benefits of procedure/sedation discussed w/ patient/family
[2017-08-22] MEDS ORDERED: *HR* Midazolam HCl 2 MG/2 ML VIAL ONE (14:20)
[2017-08-22] MEDS ORDERED: *HR* FentaNYL (PF) 100 MCG/2 ML VIAL ONE (14:21)
--- NOTE | 2017-08-22 14:57 | Event Note ---
Date of Encounter: 08/22/17 Time of Encounter: 14:53 - Cardiology Event Note LHC completed. Minimal plaque seen. TTE shows normal EF. Initially admitted due to HR in the 40's. Telemetry review shows avg HR 54 bpm. No pauses or blocks seen. C/o fatigue. Mild dizziness at times. Recommend six minute walk test after C recovery. IF HR is ok with ambulation and no significant symptoms she is ok to discharge from cardiology standpoint. Continue asa.
--- NOTE | 2017-08-22 15:11 | Invasive Diagnostic Lab Proc ---
Name: Winifred Bello Date of Study: 08/22/2017 Date: 1950 Ht: 59.8in Medical Record#: [id number] Age: 67 Wt: 150.13lb Gender: Female BSA: 1.65 Order #: [id number] BMI: 29.51 Physicians Procedure Physician: Christine Corrigan MD, FACC Referring MD: Referring MD: Staff Name Position Time In Julita Estrada RN Monitor 02:24 PM Andria Sanford RN Conveyor Worker 02:24 PM Delores Alcazar RN Conveyor Worker 02:24 PM Michelle Taveras RT (R) Scrub 02:25 PM Indications Indication Non-Stemi Procedures Performed Procedure L HRT ARTERY/VENTRICLE ANGIO Pre-Procedure Checklist Informed consent is complete signed and on chart. H&P is on chart. ID band is on and ID verified with patient. Patient NPO for procedure The procedure was described for the patient and questions were answered. Blood Pressure: 120/67 ECG is on chart. Rhythm: NSR Plan of Care Patient will tolerate the procedure without complications. Adequate level of comfort will be maintained. Hemodynamics will remain stable Patient will recover from procedure without complications. Respiratory function will be maintained. Cardiac rhythm will remain stable. Patient temperature will be maintained. Patient and/or family have verbalized understanding of the procedure. Patient Education Chief Complaint/Reason for Test: Cardiac Cath Developmental Category: Geriatric (65+ years) Developmentally Appropriate for Age: Yes Learning Barriers: None Education Needs: Procedure Education Method: Verbal Information Taught: Cardiac Cath Educational Evaluation: Able to repeat information Intravenous Access Time IV Size Location DC'd Fluid/Drip Rate Units RN 02:24 PM 20g 1 11/20" Patent On Arrival Rt Wrist 0.9NaCl 25 ml/hr Delores Alcazar RN Allergies Penicillin ASA (aspirin) Penicillins azithromycin diuretics Vital Signs Time BP (mmHg) HR (bpm) O2 Sat. RR (bpm) LOC 12:32 PM 120 / 67 53 97 % 12 5 = Fully awake and oriented or at pre-proc level 02:26 PM / % 5 = Fully awake and oriented or at pre-proc level 02:26 PM / % 4 = Oriented but drowsy 02:24 PM 155 / 80 59 100 % 11 02:29 PM 132 / 72 59 97 % 20 02:34 PM 117 / 61 57 99 % 25 02:39 PM 122 / 65 57 98 % 16 02:44 PM 123 / 68 60 98 % 17 02:49 PM 125 / 66 60 98 % 20 02:41 PM / % 5 = Fully awake and oriented or at pre-proc level Procedural Medications Time Medication Dose Units Method Given By 02:25 PM Oxygen 2 L/min nasal cannula Delores Alcazar RN 02:25 PM Versed 2 mg Intravenous Delores Alcazar RN 02:25 PM Fentanyl 50 mcg Intravenous Delores Alcazar RN 02:34 PM Lidocaine 2% 17 ml Subcutaneous Christine Corrigan MD, [facility] ASA Classification: CLASS II- Mild systemic disease (i.e. well-controlled diabetes, hypertension, asthma, cigarette smoking) Ruel Score Preprocedure Postprocedure Activity 2- Moves 4 extremities sustained head lift Activity 2- Moves 4 extremities sustained head lift Circulation 2- SBP +/= 20 points of pre-anesthetic level Circulation 2- SBP +/= 20 points of pre-anesthetic level Consciousness 2- Awake and alert oriented x 3 Consciousness 2- Awake and alert oriented x 3 O2 Saturation 2- Able to maintain O2 satruation of 92% on room air O2 Saturation 2- Able to maintain O2 satruation of 92% on room air Respiratory 2- Able to deep breathe and cough well Respiratory 2- Able to deep breathe and cough well Total Score 10 Total Score 10 Contrast Agent: Isovue Diagnostic Contrast: 45 ml Total Contrast: 45 ml Fluoro Dose: 119 mGy Procedure Log Time Note Enter By 02:18 PM CathStat 02:23 PM Vitals capture started with the following parameters, Patient=Adult, Interval=5 min, Initial Daqedtst=447 mmHg, Deflation Rate=5 mmHg, Cuff placed on Left Arm 02:24 PM 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 [facility] 02:24 PM Procedure start 14:24 [email or web address] 02:24 PM Julita Estrada RN Position: Monitor Time in: 14:24 [facility] 02:24 PM Andria Sanford RN Position: Conveyor Worker Time in: 14:24 [facility] 02: PM Delores Alcazar RN Position: Conveyor Worker Time in: 14: [facility] : PM Michelle Taveras RT (R) Position: Scrub Time in: 14: [facility] 02: PM Patient charges- Angio tray pack, Navilyst 3mm J, Pulse Oximetry and ACIST tubing and transducer [facility] : PM IV Supplies used: J loop Angio Cath. [facility] : PM Case Delayed No [facility] : PM Hair removed from procedure site in procedure lab using clippers. Bilateral groin prepped with Chloraprep by Andria Sanford RN, safety strap applied then patient was draped. Skin intact. [facility] : PM Time: 14:25 Oxygen on at 2 L/min per nasal cannula by Delores Alcazar RN [facility] : PM Time: 14:25 Versed 2 mg Intravenous Given by Delores Alcazar RN [facility] PM Time: 14:25 Fentanyl 50 mcg Intravenous Given by Delores Alcazar RN [facility] : PM Time: 14:25 Patient comfortable and pain free: Yes [facility] PM Time: 14:LOC: 5 = Fully awake and oriented or at pre-proc level [facility] : PM Clinical Presentation: Non-STEMI [facility] 02:29 PM HR=59 bpm, YPSB=375/72 mmhg, SpO2=97.0 %, Resp=20 B/min, Comment=Sinus Sandeep 02: PM Pressure channel 1 zeroed. 02:30 PM Reference ECG taken 02:30 PM Recorded ECG: HR=60 Condition=Condition 1 02:34 PM HR=57 bpm, DZDJ=443/61 mmhg, SpO2=99.0 %, Resp=25 B/min, Comment=Sinus Sandeep 02:34 PM Time out performed according to hospital policy [facility] 02:35 PM Time: 14: 17 ml Lidocaine 2% to right groin Subcutaneous Given by Christine Corrigan MD, [facility] 02:36 PM Access obtained by percutaneous puncture. 5Fr 10cm Terumo Conway sheath placed in right Femoral artery. [id number] [facility] 02:37 PM 5Fr FL 4 catheter inserted over the wire [facility] 02:37 PM 0.035 145cm Navilyst 3mmJ wire [id number] [facility] 02:37 PM Recorded Pressure: Ao, HR=57, Condition=Condition 1 (Aorta) Ao 81/49/64 02:38 PM LCA angiography performed in multiple views. [facility] 02:39 PM Catheter removed [facility] 02:39 PM HR=57 bpm, ZHFE=079/65 mmhg, SpO2=98.0 %, Resp=16 B/min, Comment=Sinus Sandeep 02:39 PM 5Fr FR 4 catheter inserted over the wire [facility] lparsley 02:40 PM RCA angiography performed in multiple views. [facility] 02:40 PM Recorded Pressure: Ao, HR=60, Condition=Condition 1 (Aorta) Ao 85/56/71 02:41 PM Time: 14:26LOC: 4 = Oriented but drowsy [facility] 02:41 PM Time: 14:25 Patient comfortable and pain free: Yes [facility] 02:41 PM Catheter removed [facility] 02:41 PM 5Fr Pigtail catheter inserted over the wire [facility] l[facility] 02:41 PM Catheter selectively placed in left ventricle [facility] 02:41 PM Bolus angiogram of left Ventricle complete: 8 ml/sec for a total of 24 mls [facility] 02:42 PM Pressure channel 3 zero failed. 02:42 PM Pressure channel 3 zeroed. 02:42 PM Recorded Pressure: LV, HR=59, Condition=Condition 1 (Left Ventricle) LV 91/13/14 02:42 PM Recorded Pressure: LV, Ao, HR=59, Condition=Condition 1 (Left Ventricle) LV 87/21/23, (Aorta) Ao 98/63/81 02:43 PM Catheter removed [facility] 02:43 PM Bolus angiogram of right Femoral complete: 4 ml/sec for a total of 7 mls [facility] 02:44 PM HR=60 bpm, ADDT=698/68 mmhg, SpO2=98.0 %, Resp=17 B/min, Comment=Sinus Sandeep 02:45 PM Procedure completed at 14:44 [facility] 02:46 PM Sign out completed: Radiation Dose 119.31 mGy Fluoro Time: 1.5 Isovue 370 - 200ml contrast 45 ml given by Christine Corrigan MD, [facility]. Complications: NoneCardiac Rehab Consult needed: NoConfirmed administered medications: Yes [facility] 02:47 PM Isovue 370 - 200ml,1 Bottle(s) used. [facility] 02:47 PM Arterial sheath pulled, Mynx closure device used and was Successful [id number] S/N. [facility] 02:47 PM Post ECG Sinus Bradycardia [facility] 02:47 PM Post Blood Pressure 123/68 [facility] 02:47 PM 14:47 Post Pulses Bilateral DP & PT 2+ [facility] 02:48 PM Information taught Cardiac Cath and Mynx [facility] 02:48 PM Education needs Procedure, Plan of Care, and Safe & Effective Use of Medications [facility] 02:48 PM Learning barriers :None [facility] 02:48 PM Education Methods Verbal [facility] 02:48 PM Education evaluation Able to repeat information [facility] 02:49 PM HR=60 bpm, LWSB=256/66 mmhg, SpO2=98.0 %, Resp=20 B/min, Comment=Sinus Sandeep 02:52 PM Site status No bleeding/hematoma - Rt Groin as reported by Michelle Taveras RT (R) at 14:52 [facility] 02:52 PM Opsite applied [facility] 02:56 PM Coronary Dominance: right [facility] 02:56 PM Time: 14:41 Patient comfortable and pain free: Yes [facility] 02:56 PM Time: 14:41LOC: 5 = Fully awake and oriented or at pre-proc level [facility] 02:57 PM Lesion found in Proximal RCA. Pre Stenosis: 15 Pre GUY Flow: 3: Complete and Brisk Flow/Perfusion [facility] 02:57 PM Lesion found in Proximal LAD. Pre Stenosis: 30 Pre GUY Flow: 3: Complete and Brisk Flow/Perfusion [facility] 02:58 PM Lesion found in Proximal Circumflex. Pre Stenosis: 15 Pre GUY Flow: 3: Complete and Brisk Flow/Perfusion [facility] 02:58 PM Lesion found in Mid Circumflex. Pre Stenosis: 20 Pre GUY Flow: 3: Complete and Brisk Flow/Perfusion [facility] 02:59 PM Proximal Left Anterior Descending Coronary Artery with 30% stenosis. [facility] 02:59 PM Right Coronary, Right Posterior Descending Arteries with Right Posterolateral and Acute Marginal branches with 15 % stenosis. [facility] 02:59 PM Circumflex, Obtuse Marginal, Left Posterior Descending, and Left Posterolateral Coronary Arteries with 20 % stenosis. [facility] 03:00 PM Report given to Jeff PATTERSON Pt taken to E Room #18. 15:00 [facility] 03:00 PM Plavix, Effient or Brilinta given No [facility] 03:00 PM Delay to floor No [facility] 03:00 PM Patient out of room: 15:00 [facility] 03:01 PM Family not available [facility] 03:01 PM Complications: None [facility] 03:01 PM Fluoro Time: 1.5 [facility] 03:01 PM Isovue 370 - 200ml contrast 45 ml given by Christine Corrigan MD, [facility]. [facility] 03:02 PM Radiation Dose 119.31 mGy [email or web address] Complications Complication None None Hemodynamics Pressures Site Systolic/A Wave Diastolic/V Wave Mean AO 81 49 64 AO 85 56 71 LV 91 13 14 LV 87 21 23 AO 98 63 81 Post Procedure Information Blood Pressure: 123/68 mmHg Rhythm: Sinus Bradycardia Post procedural instructions were given Closure Device Time Device Success/Fail 08/22/2017 3:03:00 PM MynxGrip Successful Site Checks Time Location Status Staff Sheath In? Note 02:52 PM Rt Groin No bleeding/hematoma Michelle Taveras RT (R) Pulses Time Site Pre-Procedure Post-Procedure Note 08/22/2017 12:32:00 PM Bilateral DP & PT 2+ 08/22/2017 12:32:00 PM Bilateral DP & PT 1+ 2:47:00 PM Bilateral DP & PT 2+ Updated by Julita Estrada RN on 08/22/2017 3:05:40 PM electronically signed on 08/22/2017 3:06:15 PM with status of Final
[2017-08-22] MEDS: Acetaminophen 325 MG TABLET PO PRN (17:37)
[2017-08-22] MEDS: Lisinopril-HCTZ 20-12.5mg TABLET PO SCH (17:37)
[2017-08-23 05:47] LABS: BUN/Creatinine Ratio 27 (6-26); Blood Urea Nitrogen 26 mg/dL (7-20); Calcium 8.3 mg/dL (8.6-10.8); Carbon Dioxide 25 mEq/L (19-29); Chloride 109 mEq/L (98-109); Glucose 90 mg/dL (70-99); Osmolality,Calculated 294 (280-300); Potassium 3.6 mEq/L (3.5-4.5); Sodium 140 mEq/L (136-145); eGFR For African Americans > 60 (> 60); eGFR For Non-African Americans 58 (> 60)
--- NOTE | 2017-08-23 06:45 | Discharge Summary ---
<Girish Camacho - Last Filed: 08/23/17 08:24> Date of Encounter: 08/23/17 Time of Encounter: 07:34 - Discharge Diagnosis (1) Bradycardia Priority: Primary Status: Acute (2) Chest pain Priority: Primary Status: Acute Qualifiers: Chest pain type: unspecified Qualified Code(s): R07.9 - Chest pain, unspecified (3) COPD (chronic obstructive pulmonary disease) Priority: Secondary Status: Acute Qualifiers: COPD type: chronic bronchitis Chronic bronchitis type: simple Qualified Code(s): J41.0 - Simple chronic bronchitis (4) Carotid stenosis Priority: Secondary Status: Chronic Qualifiers: Laterality: bilateral Qualified Code(s): I65.23 - Occlusion and stenosis of bilateral carotid arteries (5) Dyspnea Priority: Secondary Status: Acute Qualifiers: Dyspnea type: shortness of breath Qualified Code(s): R06.02 - Shortness of breath; R06.00 - Dyspnea, unspecified; R06.01 - Orthopnea (6) Acute kidney injury Priority: Secondary Status: Acute (7) UTI (urinary tract infection) Priority: Secondary Status: Resolved Qualifiers: Urinary tract infection type: acute cystitis Hematuria presence: without hematuria Qualified Code(s): N30.00 - Acute cystitis without hematuria (8) DVT prophylaxis Priority: Secondary Status: Acute - Discharge Medications Prescriptions: Aspirin Enteric Coated [Aspirin EC] 81 mg PO DAILY #90 tablet.dr Garces Medications: Escitalopram [Lexapro] 20 mg PO DAILY 04/28/17 [History] Omeprazole [PriLOSEC] 20 mg PO DAILY 04/28/17 [History] Atorvastatin [Lipitor] 40 mg PO HS #30 tablet 05/01/17 [Rx] Clopidogrel [Plavix] 75 mg PO DAILY #30 tablet 05/01/17 [Rx] Albuterol Sulfate [Albuterol Inhaler] 2 puff IH Q6HR PRN 05/28/17 [History] Lisinopril [Zestril] 40 mg PO QAM 06/18/17 [History] Lisinopril-HCTZ 20-12.5 [Prinzide 20-12.5] 1 each PO QPM 06/18/17 [History] Acetaminophen [Tylenol] 650 mg PO Q4HR PRN tablet 08/23/17 [Rx] Aspirin Enteric Coated [Aspirin EC] 81 mg PO DAILY #90 tablet. 08/23/17 [Rx] Allergies/Adverse Reactions: 3 Allergy/AdvReac Type Severity Reaction Status Date / Time azithromycin AdvReac See Verified 08/19/17 11:14 [From Zithromax Z-Toni] Comments Penicillins [PCN] AdvReac Hives Verified 08/19/17 11:14 diuretics AdvReac Mild See Uncoded 08/22/17 15:18 Comments Procedures/tests Complete & Pending: Procedures Performed prior 72 hours Category Date Time Status CL Cardiac Catheterization [CL] Routine Welt Drawer 08/22/17 08:06 Completed Date of admission: 08/21/17 17:45 Primary care physician: Bruce Bolden MD Consults: 08/22/17 08:07 Consult to Cardiac Rehabilitation-Phase1 [CONS] Routine Comment: Reason for Consult: NSTEMI Call Completed: No Discharging clinician: Girish Camacho Anticipated date of discharge: 08/23/17 - Patient Status Disposition: Home, Self-Care Condition: Good Functional capacity at discharge: independent ambulation Overall status at discharge: patient is progressing back to baseline - Discharge Instructions Instructions: Aspirin (By mouth), Chest Pain (DC), Bradycardia (DC) Follow Up With: Omer Brennan CNP [Advanced Practice Nurse] - (Cardiology office is setting you up with an appt they will call you with appt date & time.) Bruce Bolden MD [Primary Care Provider] - (Please call your PCP and make follow up appointment within 1 week from discharge from hospital. ) Additional Instructions: Patient should follow up with primary care within 1-2 weeks, follow-up with cardiology as directed Patient should take 81 mg aspirin daily Patient can return to work in one week, or at discretion of primary care provider - Diet and Activity Activity: increase activity as tolerated, resume usual activities as tolerated Diet: low salt diet Hospital course: Ms. 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 Shortness of breath is worse by minimal exertion and she was also been weak and lethargic. Patient also complained of productive cough with changes in Sputum. She was seen by her primary care provider who ordered an echocardiogram and found that she was bradycardic with heart rate of 40s she was advised to come to the emergency room. In the ER chest x-ray showed no acute intrathoracic process, EKG demonstrated sinus bradycardia with left ventricular hypertrophy. She was admitted to the hospital for COPD exacerbation and bradycardia, most placed on prednisone and Levaquin. During her stay in the hospital she experienced acute chest pain was left-sided in nature with radiation to the left neck and left arm. It was also relieved by nitroglycerin. The patient at that time demonstrated nonspecific ST changes in EKG, and she was scheduled for left heart catheterization, which demonstrated no significant disease. The patient's bradycardia is primarily resolved, and she is stable for discharge at this time on optimal medication management. - Time Spent with Patient Total time spent providing and/or coordinating discharge services: - Constitutional Vitals: Temp Pulse Resp BP Pulse Ox 98.1 F 61 20 143/64 97 08/22/17 23:52 08/22/17 23:52 08/22/17 23:52 08/22/17 23:52 08/22/17 23:52 General appearance: Present: A&O X 3, no acute distress, obese, answers questions appropriately - Head Head exam: Present: atraumatic, normocephalic - Eye Eye exam: Present: PERRL, conjuntiva pink, sclera anicteric Pupils: Present: PERRL - Neck Neck exam general surgery: Present: supple, trachea midline. Absent: lymphadenopathy - Respiratory Respiratory exam: Present: CTAB. Absent: accessory muscle use, rales, rhonchi, wheezes - Cardiovascular Cardiovascular exam: Present: RRR, +S1, +S2. Absent: diastolic murmur, gallop, rubs, systolic murmur - GI/Abdominal GI/Abdominal exam: Present: normal bowel sounds, soft, no peritoneal signs. Absent: distended, tenderness - Extremities Exam Extremities exam: Present: warm, radial pulses palpable and symmetrical. Absent : calf tenderness, cyanotic, pedal edema - Neurological Exam Neurological exam: Present: CN II-XII intact, oriented X3, no focal deficits. Absent: pronater drift, facial droop, speech deficit - Skin Skin exam: Present: dry, intact - VTE Reasons for not Prescribing Prophylaxis: Not indicated-Anticoagulated or INR therapeutic <Rogerio Santacruz - Last Filed: 08/23/17 17:27> Date of Encounter: 08/23/17 - Discharge Diagnosis (1) Acute exacerbation of chronic obstructive pulmonary disease (COPD) Priority: Primary Status: Acute (2) COPD (chronic obstructive pulmonary disease) Status: Acute Qualifiers: COPD type: chronic bronchitis Chronic bronchitis type: simple Qualified Code(s): J41.0 - Simple chronic bronchitis (3) UTI (urinary tract infection) Status: Resolved Qualifiers: Urinary tract infection type: acute cystitis Hematuria presence: without hematuria Qualified Code(s): N30.00 - Acute cystitis without hematuria (4) Bradycardia Status: Resolved (5) HTN (hypertension) Priority: Secondary Status: Chronic Qualifiers: Hypertension type: essential hypertension Qualified Code(s): I10 - Essential (primary) hypertension (6) Mixed hyperlipidemia Priority: Secondary Status: Chronic (7) Acute kidney injury Status: Resolved Procedures/tests Complete & Pending: Procedures Performed prior 72 hours Category Date Time Status CL Cardiac Catheterization [CL] Routine Welt Drawer 08/22/17 08:06 Completed Date of admission: 08/21/17 17:45 Primary care physician: Bruce Bolden MD Consults: 08/22/17 08:07 Consult to Cardiac Rehabilitation-Phase1 [CONS] Routine Comment: Reason for Consult: NSTEMI Call Completed: No Hospital course: Ms. Bello is a 67 year old female - Time Spent with Patient Total time spent providing and/or coordinating discharge services: 39min - Constitutional Vitals: Temp Pulse Resp BP Pulse Ox 98.6 F 55 18 133/70 98 08/23/17 07:00 08/23/17 07:00 08/23/17 07:00 08/23/17 07:00 08/23/17 07:00 - Attending Attestation I examined this patient and my medical decision-making was reviewed with the Resident Physician 08/23/17. I agree with the documented findings, disposition and treatment plan as described except to the extent set forth below. Ms Bello has been admitted for acute exac COPD. She had negative cath yesterday. She is now afebrile and vitals are stable. She is ready for discharge home. She is ambulating in the room without difficulty. Exam Alert. Comfortable Heart reg No wheeze No edema Plan D/C home today Follow up with PCP. Patient refused flu vaccine.
[2017-08-23 08:30] VITALS: BP 133/70
[2017-08-23] MEDS: predniSONE 20 MG TABLET PO SCH (09:19)
[2017-08-23] MEDS: Loratadine 10 MG TABLET PO SCH (09:19)
== END 2017-08-23 10:40 | disposition home or self-care (01) | DRG 287 ==
LOC: 2NENU 11:12 → EMEROO 11:12 → 2NENU 14:42
PROVIDERS: ADMIT Internal Medicine; ATTEND Internal Medicine

== ENCOUNTER 2018-07-31 14:15 | Inpatient (IN) ==
--- NOTE | 2018-07-31 16:19 | Emergency Department Note ---
Disposition Clinical Impression: NSTEMI (non-ST elevated myocardial infarction), Acute kidney injury, Fibula fracture, Near syncope, Chest pain Disposition: Admitted As Inpatient Condition: Good General Adult HPI - General Chief complaint: ED Back Pain/Injury Stated complaint: left leg pain Time Seen by Provider: 07/31/18 16:13 - History of Present Illness Pain Scale: 10 - Related Data Home Medications Medication Instructions Recorded Confirmed Escitalopram [Lexapro] 20 mg PO DAILY 04/28/17 07/31/18 Omeprazole [PriLOSEC] 20 mg PO DAILY 04/28/17 07/31/18 Albuterol Sulfate [Albuterol 2 puff IH Q6HR PRN 05/28/17 07/31/18 Inhaler] Lisinopril [Zestril] 40 mg PO QAM 06/18/17 07/31/18 Previous Rx's Medication Instructions Recorded Clopidogrel [Plavix] 75 mg PO DAILY #30 tablet 05/01/17 Acetaminophen [Tylenol] 650 mg PO Q4HR PRN tablet 08/23/17 Aspirin Enteric Coated [Aspirin EC] 81 mg PO DAILY #90 tablet. 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 - Social History Smoking Status: Never smoker Smokeless Tobacco Status: No Alcohol use: Reports: none Drug use: Reports: none Course Vital Signs Temperature 99.0 F 07/31/18 14:50 Pulse Rate 70 07/31/18 14:50 Respiratory Rate 18 07/31/18 14:50 Blood Pressure 96/50 07/31/18 14:50 O2 Sat by Pulse Oximetry 95 07/31/18 14:50 Temperature 97.8 F 08/01/18 04:41 Pulse Rate 62 08/01/18 04:41 Respiratory Rate 18 08/01/18 04:41 Blood Pressure 90/56 08/01/18 04:41 O2 Sat by Pulse Oximetry 96 08/01/18 04:41 Oxygen Delivery Oxygen Delivery Room Air Medical Decision Making - Lab Data Result diagrams: 08/01/18 04:32 08/01/18 04:32 Lab Results 07/31/18 07/31/18 07/31/18 Range/Units 17:11 17:11 18:02 WBC 10.5 (4.3-11.1) K/mcL RBC 3.38 L (3.82-4.97) M/mcL Hgb 8.5 L (11.5-15.4) g/dL Hct 27.3 L (35.3-44.9) % MCV 80.8 L (83.0-100.0) fL MCH 25.1 L (28.0-33.3) pg MCHC 31.1 L (31.6-35.5) g/dL RDW 18.1 H (11.5-14.5) % Plt Count 267 (140-400) K/mcL MPV 11.6 (9.4-12.4) fL Immature Gran % 0.4 (0-4) % Seg Neutrophils % 65.7 % Lymphocytes % 19.8 % Monocytes % 9.7 % Eosinophils % 4.1 % Basophils % 0.3 % Neutrophils # 6.9 (1.6-8.9) K/mcL Lymphocytes # 2.1 (0.6-4.6) K/mcL Monocytes # 1.0 (0.0-1.3) K/mcL Eosinophils # 0.4 (0.0-0.6) K/mcL Basophils # 0.0 (0.0-0.2) K/mcL Sodium 133 L (136-145) mEq/L Potassium 4.2 (3.5-5.1) mEq/L Chloride 110 H (98-107) mEq/L Carbon Dioxide 22 L (23-29) mEq/L BUN 45 H (8-23) mg/dL Creatinine 1.94 H (0.60-1.20) mg/dL Est GFR ( Amer) 31 L (> 60) Est GFR (Non-Af Amer) 26 L (> 60) BUN/Creatinine Ratio 23 (6-26) Glucose 93 (70-105) mg/dL Calculated Osmolality 287 (280-300) Calcium 8.5 L (8.6-10.3) mg/dL Troponin I 0.10 H* (< 0.04) ng/mL Stool Occult Bld Scrn Positive A (Negative) Critical Care Time Critical Care Time: Yes Total Critical Care Time: 30 Attestation: The high probability of a clinically significant, sudden or life threatening deterioration of the [] system(s) required my full and direct attention, intervention and personal management. The aggregate critical care time was [] minutes. This time is in addition to time spent performing reported procedures but includes the following: [] Data Review and interpretation [] Patient assessment and monitoring of vital signs [] Documentation [] Medication orders and management Attestation Statement - Attestation Attestation: I examined this patient and my medical decision-making was reviewed with the Resident Physician. I agree with the documented findings, disposition and treatment plan as described except to the extent set forth below. [id number] time provided Patient arrives to the treatment area in the care of her family by wheelchair with reports of a mechanical fall at work. She complains of left ankle and proximal thigh pain. She also states she has recently been expressing some dizzy spells causing her to lose her balance and similar symptoms preceded a right-sided carotid endarterectomy approximately one year ago. Patient has mild left lateral malleolar swelling on exam but no leg length discrepancies
--- NOTE | 2018-07-31 17:05 | Emergency Department Note ---
Disposition Clinical Impression: NSTEMI (non-ST elevated myocardial infarction), Acute kidney injury, Near syncope Fibula fracture Qualifiers: Encounter type: initial encounter Fibula location: distal Fracture type: closed Fracture morphology: unspecified fracture morphology Laterality: left Qualified Code(s): S82.832A - Other fracture of upper and lower end of left fibula, initial encounter for closed fracture Chest pain Qualifiers: Chest pain type: other chest pain Qualified Code(s): R07.89 - Other chest pain ; R07.8 - Other chest pain Disposition: Admitted As Inpatient Condition: Good Referrals: Bruce Bolden MD [Primary Care Provider] - Forms: ED Satisfaction Letter Time of Disposition: 19:00 General Adult HPI - General Chief complaint: ED Back Pain/Injury Stated complaint: left leg pain Time Seen by Provider: 07/31/18 16:13 Nursing Notes Reviewed: Yes Vital Signs Reviewed: Yes - History of Present Illness HPI Narrative: Female patient presents emergency department complaining of increased falls and near syncope over the past week. States that she felt like this prior to her carotid endarterectomy approximately a year ago. She also reports an episode of chest pain whenever she had this fall. She reports it as a mechanical fall. She did catch herself on the wall as she fell. Did not strike her head. Did not lose consciousness. Is on Plavix. States that she has been ambulatory since however she does have pain she points the pain she reports at around her knee. She denies shaking her head. She denies actually passing out. Is mentating appropriately at this time. Does not appear to be in any distress. Pupils are equal and reactive to light. I do not appreciate any signs of trauma to her body. She does have old ecchymosis to her right eye that the daughter states is from rubbing her eye. Did get plain films of her left hip and left femur. These were negative. We will get an EKG as well as a troponin basic lab workup and a carotid ultrasound. Pain Scale: 10 - Related Data Home Medications Medication Instructions Recorded Confirmed Escitalopram [Lexapro] 20 mg PO DAILY 04/28/17 08/19/17 Omeprazole [PriLOSEC] 20 mg PO DAILY 04/28/17 08/19/17 Albuterol Sulfate [Albuterol 2 puff IH Q6HR PRN 05/28/17 08/19/17 Inhaler] Lisinopril [Zestril] 40 mg PO QAM 06/18/17 08/19/17 Previous Rx's Medication Instructions Recorded Clopidogrel [Plavix] 75 mg PO DAILY #30 tablet 05/01/17 Acetaminophen [Tylenol] 650 mg PO Q4HR PRN tablet 08/23/17 Aspirin Enteric Coated [Aspirin EC] 81 mg PO DAILY #90 tablet. 08/23/17 Allergies Allergy/AdvReac Type Severity Reaction Status Date / Time azithromycin AdvReac See Verified 07/31/18 18:52 [From Zithromax Z-Toni] Comments Penicillins [PCN] AdvReac Hives Verified 07/31/18 18:52 diuretics AdvReac Mild See Uncoded 07/31/18 18:52 Comments All systems ED: reviewed and negative except as stated. Review of Systems: As Per HPI Constitutional: Denies: fever, chills ENT ED: Denies: congestion Cardiovascular: Reports: chest pain (Occasional. Short duration. Last episode was round 10:00 today when she fell.). Denies: palpitations, syncope Respiratory: Denies: cough, dyspnea Gastrointestinal: Denies: abdominal pain, nausea, vomiting, diarrhea, hematemesis, melena, hematochezia Genitourinary: Denies: urgency, dysuria, frequency Musculoskeletal: Reports: other (Left hip left knee pain.). Denies: back pain, neck pain Integumentary: Denies: rash, abrasion Neurological: Denies: headache, weakness Past Medical History - Past Medical History Attestation: Yes The following information was validated with the patient. 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 - Social History Smoking Status: Never smoker Smokeless Tobacco Status: No Alcohol use: Reports: none Drug use: Reports: none Physical Exam - General Limitations: no limitations General appearance: alert, in no apparent distress - Head Head exam: atraumatic, normocephalic, normal inspection - Eye Eye exam: Present: normal appearance, PERRL, EOMI - ENT ENT exam: normal exam, normal oropharynx, mucous membranes moist - Neck Neck exam: Present: normal inspection, full ROM, trachea midline - Chest Chest inspection: Present: normal inspection, symmetric chest wall rise - Respiratory Respiratory exam: Present: normal lung sounds bilaterally. Absent: respiratory distress, accessory muscle use - Cardiovascular Cardiovascular exam: Present: regular rate, normal rhythm, normal heart sounds - Abdominal Exam Abdominal exam: Present: soft, Non-Tender. Absent: tenderness, distention, guarding, rebound, rigidity, organomegaly - Extremities Exam Extremities exam: Present: normal inspection, full ROM, tenderness (To palpation of left knee. No ecchymosis to that area. Also has some mild ecchymosis a lateral aspect of left foot. No crepitus noted.), normal capillary refill. Absent: pedal edema, calf tenderness - Back Exam Back exam: Present: normal inspection, full ROM. Absent: tenderness - Neurological Exam Neurological exam: Present: alert, oriented X3 - Psychiatric Psychiatric exam: Present: normal affect, normal mood - Skin Skin exam: Present: warm, dry, intact, normal color. Absent: rash, cyanosis, diaphoresis Course Course Narrative: Patient is mentating appropriately. Does not appear to be any significant distress. She does have mild ecchymosis to the lateral aspect of her left foot however she is able to move both lower extremities without pain. On x-ray she does have an avulsion fracture to her left lower extremity. Patient also is anemic. Previous hemoglobins have not been slow. No signs of bleeding found however we are sending a fecal Hemoccult at this time. Patient also has a new acute kidney injury. Patient has had several near syncopal events. Her troponins also bumped up 0.1. No signs of ischemia on her EKG. She does not have chest pain at this time however she did have an episode of this earlier today. We will admit patient to the hospital for and STEMI left lower extreme a fracture and new AK. - Consultations Consultation #1: Dr Gonsalez accepted Pt in stable condition. Time: 19:00 Vital Signs Temperature 99.0 F 07/31/18 14:50 Pulse Rate 70 07/31/18 14:50 Respiratory Rate 18 07/31/18 14:50 Blood Pressure 96/50 07/31/18 14:50 O2 Sat by Pulse Oximetry 95 07/31/18 14:50 Temperature 99.0 F 07/31/18 14:50 Pulse Rate 70 07/31/18 14:50 Respiratory Rate 18 07/31/18 14:50 Blood Pressure 96/50 07/31/18 14:50 O2 Sat by Pulse Oximetry 95 07/31/18 14:50 Oxygen Delivery Oxygen Delivery Room Air Medical Decision Making - Medical Records Medical records reviewed: Yes I reviewed the patient's medical records. - Lab Data Lab results reviewed: Yes I reviewed the patient's lab results. Result diagrams: 07/31/18 17:11 07/31/18 17:11 Lab Results 07/31/18 07/31/18 Range/Units 17:11 17:11 WBC 10.5 (4.3-11.1) K/mcL RBC 3.38 L (3.82-4.97) M/mcL Hgb 8.5 L (11.5-15.4) g/dL Hct 27.3 L (35.3-44.9) % MCV 80.8 L (83.0-100.0) fL MCH 25.1 L (28.0-33.3) pg MCHC 31.1 L (31.6-35.5) g/dL RDW 18.1 H (11.5-14.5) % Plt Count 267 (140-400) K/mcL MPV 11.6 (9.4-12.4) fL Immature Gran % 0.4 (0-4) % Seg Neutrophils % 65.7 % Lymphocytes % 19.8 % Monocytes % 9.7 % Eosinophils % 4.1 % Basophils % 0.3 % Neutrophils # 6.9 (1.6-8.9) K/mcL Lymphocytes # 2.1 (0.6-4.6) K/mcL Monocytes # 1.0 (0.0-1.3) K/mcL Eosinophils # 0.4 (0.0-0.6) K/mcL Basophils # 0.0 (0.0-0.2) K/mcL Sodium 133 L (136-145) mEq/L Potassium 4.2 (3.5-5.1) mEq/L Chloride 110 H (98-107) mEq/L Carbon Dioxide 22 L (23-29) mEq/L BUN 45 H (8-23) mg/dL Creatinine 1.94 H (0.60-1.20) mg/dL Est GFR ( Amer) 31 L (> 60) Est GFR (Non-Af Amer) 26 L (> 60) BUN/Creatinine Ratio 23 (6-26) Glucose 93 (70-105) mg/dL Calculated Osmolality 287 (280-300) Calcium 8.5 L (8.6-10.3) mg/dL Troponin I 0.10 H* (< 0.04) ng/mL - Radiology Data Radiology results reviewed: Yes I reviewed the patient's radiology results. Ankle X-Ray 07/31/18 16:16 IMPRESSION: Tiny avulsion fracture of the distal fibula with lateral soft tissue swelling D/ / Girish Denise MD / Girish Denise MD Interpreting Provider: Girish Denise MD Femur X-Ray 07/31/18 16:16 IMPRESSION: 1. No acute abnormality. D/ / Noam Knowles MD / Noam Knowles MD Interpreting Provider: Noam Knowles MD Hip X-Ray 07/31/18 16:16 IMPRESSION: 1. No acute abnormality. D/ / Noam Knowles MD / Noam Knowles MD Interpreting Provider: Noam Knowles MD - EKG Data EKG #1 EKG attestation: Yes I reviewed and interpreted this EKG. EKG results narrative: Normal sinus rhythm at a rate of 72. DC interval is 166. QRS duration is 96. QT is 397. QTC is 435. No signs of ischemia. Good R-wave progression. No significant change from previous EKG dated 08/20/2017.
[2018-07-31 17:29] LABS: Basophils % 0.3 %; Eosinophils # 0.4 K/mcL (0.0-0.6); Eosinophils % 4.1 %; Hematocrit 27.3 % (35.3-44.9); Hemoglobin 8.5 g/dL (11.5-15.4); Immature Granulocytes % 0.4 % (0-4); Lymphocytes # 2.1 K/mcL (0.6-4.6); Lymphocytes % 19.8 %; Mean Corpuscular HGB Conc 31.1 g/dL (31.6-35.5); Mean Corpuscular Hemoglobin 25.1 pg (28.0-33.3); Mean Corpuscular Volume 80.8 fL (83.0-100.0); Mean Platelet Volume 11.6 fL (9.4-12.4); Monocytes % 9.7 %; Neutrophils # 6.9 K/mcL (1.6-8.9); Platelet Count 267 K/mcL (140-400); Red Blood Count 3.38 M/mcL (3.82-4.97); Red Cell Distribution Width 18.1 % (11.5-14.5); Segmented Neutrophils % 65.7 %
[2018-07-31] MEDS ORDERED: *HR* HYDROcodone/Acet 5/325 mg TABLET PO ONE (17:42)
[2018-07-31 17:53] LABS: Calcium 8.5 mg/dL (8.6-10.3); Potassium 4.2 mEq/L (3.5-5.1)
[2018-07-31 17:58] LABS: Troponin I 0.1 ng/mL (< 0.04)
[2018-07-31] MEDS ORDERED: Aspirin 325 MG TABLET PO ONE (18:07)
[2018-07-31] MEDS ORDERED: Naloxone 0.4 MG/ML INJ IVP PRN (21:21)
--- NOTE | 2018-07-31 21:29 | Internal Med History&Physical ---
Date of Encounter: 08/01/18 Time of Encounter: 21:28 Internal Medicine - H&P: HPI Chief complaint: Presyncope/Fall History of present illness: Ms. Bello is a 68 year old female with a past medical history of asthma, hypertension, nonobstructive coronary artery disease, carotid stenosis status post carotid endarterectomy in June 2017 who presents with presyncope episode associated with fall which occurred earlier this afternoon around 2 PM. Patient states that she has been having symptoms of lightheadedness for the past 2-3 weeks. Symptoms are especially notable when she gets up in the morning and attempts to get out of bed. She denies any symptoms of vertigo or loss of consciousness but states that she does feel lightheaded and weak. Around 2 PM this afternoon when patient went to take her lunch break, while attempting to get stand up she reports falling over and hitting the wall. It was at this time that her coworker called EMS. Patient however denies any loss of consciousness during this episode. She also reports that her left leg felt "spongy" and numb as if her leg at fallen asleep. Patient has also been reporting transient palpitations where she feels like her heart stops beating for a few seconds associated with transient left-sided burning sensation which lasts a couple of seconds. She states that this has been going on off and on for a while now. Patient denies any dark stool or blood in her stool however, reports history of chronic hemorrhoids with intermittent spotting of red blood on her toilet paper. Patient has never had a colonoscopy. Denies any weight loss. Past Med Surg Social Fam HX - Past Medical History Medical history: arthritis, asthma, hypertension Additional medical history: H.PYLORI, Psychiatric history: depression - Past Surgical History Surgical History: SUSAN/BSO Additional surgical history: 1987 HYSTERECTOMY - Social History Smoking Status: Never smoker Smokeless Tobacco Status: No Alcohol use: none Drug use: none - Family History Mother Hx Family Cardiac Disorders: Yes Hx Family Cancer: Yes (ovary) Father Hx Family Cancer: Yes (liver) Hx Family Endocrine Disorder: Yes Internal Medicine - H&P: Meds Escitalopram [Lexapro] 20 mg PO DAILY 04/28/17 [History] Omeprazole [PriLOSEC] 20 mg PO DAILY 04/28/17 [History] Clopidogrel [Plavix] 75 mg PO DAILY #30 tablet 05/01/17 [Rx] Albuterol Sulfate [Albuterol Inhaler] 2 puff IH Q6HR PRN 05/28/17 [History] Lisinopril [Zestril] 40 mg PO QAM 06/18/17 [History] Acetaminophen [Tylenol] 650 mg PO Q4HR PRN tablet 08/23/17 [Rx] Aspirin Enteric Coated [Aspirin EC] 81 mg PO DAILY #90 tablet. 08/23/17 [Rx] 3 Allergy/AdvReac Type Severity Reaction Status Date / Time azithromycin AdvReac See Verified 07/31/18 18:52 [From Zithromax Z-Toni] Comments Penicillins [PCN] AdvReac Hives Verified 07/31/18 18:52 diuretics AdvReac Mild See Uncoded 07/31/18 18:52 Comments All Systems PM: A 10-system review of systems was performed and is negative for pertinent findings except as documented above in the HPI. - Constitutional Constitutional: no chills, no fever(s), no night sweats - EENT Eyes: no change in vision, no discharge, no pain, no photophobia Ears: no ear discharge, no ear pain, no tinnitus Nose, mouth and throat: no dysphagia, no nasal discharge, no neck pain, no sore throat - Cardiovascular Cardiovascular ROS IM: no chest pain, no diaphoresis, no dyspnea, no lightheadedness, no palpitations, no syncope - Respiratory Respiratory: no cough, no dyspnea, no wheezing, no excessive phlegm production - Gastrointestinal Gastrointestinal: no abdominal pain, no diarrhea, no hematemesis, no hematochezia, no melena, no nausea, no vomiting - Genitourinary Genitourinary: no change in urinary stream, no dysuria, no flank pain, no hematuria - Musculoskeletal Musculoskeletal ROS IM: no numbness, no tingling - Integumentary Integumentary IM: no rash, no unusual bruising - Neurological Neurological ROS: no confusion, no convulsions, no focal weakness, no numbness, no tingling, no tremor(s) - Hematologic/Lymphatic Hematologic/Lymphatic: no easy bruising - Constitutional Vitals: Temp Pulse Resp BP Pulse Ox 99.1 F 68 18 116/63 96 07/31/18 21:12 07/31/18 21:12 07/31/18 21:12 07/31/18 21:12 07/31/18 21:12 Exam: General: Alert and oriented 3; not in acute distress Skin:Normal color, no rash, no lesions. HEENT: EOM, pupils equal, round and reactive. Cardiovascular: Normal S1 & S2, 3/6 systolic murmur best appreciated in the right second intercostal space; no rubs or gallops. No JVD. Pulse regular. Lungs:Normal breath sounds, no wheezes or crackles. Abdomen: Soft, non-tender, no rigidity. Extremities: Mild swelling and tenderness noted over the left lateral malleolus , no joint swelling or clubbing. Neurological:Normal cognition and motor skills. Pulses:Carotid and radial pulses normal +2. Rest of the physical exam is non contributory Internal Med - H&P Results - Labs CBC & Chem 7: 08/01/18 12:31 08/01/18 04:32 - Assessment and plan (1) Near syncope Current Visit: Yes Status: Acute Assessment and plan: Reported near syncope and fall without loss of consciousness. History appears to be consistent with an orthostatic picture and given laboratory findings, concern that this maybe be secondary to patient's underlying anemia with significant drop in her hemoglobin compared to previous H&H of 11.7 approximately one year prior. Regardless, we will obtain workup for syncope. Check orthostatics. Continue telemetry. Trend troponin. Echocardiogram. Carotid duplex (2) Fibula fracture Current Visit: Yes Status: Acute Assessment and plan: Tiny avulsion fracture of the distal fibula with lateral soft tissue swelling likely incurred after fall. Patient currently not complaining of any pain. Pain management as needed. Ortho consult in the morning Qualifiers: Encounter type: initial encounter Fibula location: distal Fracture type: closed Fracture morphology: unspecified fracture morphology Laterality: left Qualified Code(s): S82.832A - Other fracture of upper and lower end of left fibula, initial encounter for closed fracture (3) Anemia Current Visit: Yes Status: Acute Assessment and plan: Anemia in the setting of reported chronic hemorrhoids and spotting of bright red blood on toilet paper. As noted in the history patient has never had a colonoscopy. Hemoccult testing. Trend H&H. Patient will likely need GI consult in the morning to assess for GI bleed. We will continue aspirin and Plavix for now given patient's history of stroke Qualifiers: Anemia type: unspecified type Qualified Code(s): D64.9 - Anemia, unspecified (4) Acute kidney injury Current Visit: Yes Status: Acute Assessment and plan: Acute kidney injury likely prerenal in the setting of anemia. Start patient on maintenance fluids. Repeat creatinine in the morning. Hold lisinopril. (5) Chest pain Current Visit: Yes Status: Acute Assessment and plan: Atypical chest pain. EKG was reviewed with cardiology, Dr. Stern. He did not appreciate any significant ST changes and attributes elevated troponin to demand ischemia in the setting of anemia. We will continue telemetry and trend troponin. Qualifiers: Chest pain type: other chest pain Qualified Code(s): R07.89 - Other chest pain; R07.8 - Other chest pain (6) Elevated troponin Current Visit: No Status: Acute Assessment and plan: Likely secondary to demand ischemia in the setting of anemia. We will continue to trend troponin and monitor on telemetry. (7) HTN (hypertension) Current Visit: No Status: Chronic Assessment and plan: Hold antihypertensives for now. Qualifiers: Hypertension type: essential hypertension Qualified Code(s): I10 - Essential (primary) hypertension (8) DVT prophylaxis Current Visit: No Status: Acute Assessment and plan: Pneumatic compression devices due to concern of bleed - Time Spent With Patient Total time spent is greater than 50% in coordination of care (as documented) at patient's floor/unit and/or counseling patient:
[2018-07-31] MEDS: *HR* OxyCODONE Immed Rel 5 MG TABLET PO PRN (23:02)
[2018-07-31] MEDS: Pantoprazole 40 MG VIAL IVP SCH (23:34)
[2018-07-31] MEDS: 0.9 % Sodium Chloride 1,000 ML IVC SCH (23:37)
[2018-08-01 05:03] LABS: Basophils % 0.3 %; Eosinophils # 0.6 K/mcL (0.0-0.6); Eosinophils % 6.4 %; Hematocrit 24.5 % (35.3-44.9); Hemoglobin 7.4 g/dL (11.5-15.4); Immature Granulocytes % 0.3 % (0-4); Lymphocytes # 2.8 K/mcL (0.6-4.6); Lymphocytes % 32.2 %; Mean Corpuscular HGB Conc 30.2 g/dL (31.6-35.5); Mean Corpuscular Hemoglobin 24.1 pg (28.0-33.3); Mean Corpuscular Volume 79.8 fL (83.0-100.0); Mean Platelet Volume 11.4 fL (9.4-12.4); Monocytes % 11.6 %; Neutrophils # 4.3 K/mcL (1.6-8.9); Platelet Count 256 K/mcL (140-400); Red Blood Count 3.07 M/mcL (3.82-4.97); Red Cell Distribution Width 18.2 % (11.5-14.5); Segmented Neutrophils % 49.2 %
[2018-08-01 05:22] LABS: Albumin 3.2 g/dL (3.5-5.7); Albumin/Globulin Ratio 1.4 (1.1-2.2); Bilirubin,Total 0.2 mg/dL (0.3-1.0); Calcium 8.2 mg/dL (8.6-10.3); Globulin 2.3 g/dL (2.4-3.5); Potassium 4.1 mEq/L (3.5-5.1); Total Protein 5.5 g/dL (6.4-8.9)
[2018-08-01] MEDS: traMADol 50 MG TABLET PO PRN (09:51)
[2018-08-01] MEDS: Aspirin Enteric Coated 81 MG Tablet PO SCH (09:51)
[2018-08-01] MEDS: 0.9 % Sodium Chloride 1,000 ML IVC SCH (09:52)
[2018-08-01] MEDS: Pantoprazole 40 MG VIAL IVP SCH ×2 (09:52→17:49)
[2018-08-01 10:26] LABS: Troponin I 0.04 ng/mL (< 0.04)
--- NOTE | 2018-08-01 12:45 | Internal Med Progress Note ---
Hospitalist Progress Note - Encounter Date of Encounter: 08/01/18 Time of Encounter: 12:42 - Subjective Interval History: Patient seen and examined at bedside. Patient had no acute overnight events. Patient has been nothing by mouth. Patient has had bowel movements and does report dark stools. Patient admits to recent NSAID use for her chronic headaches. Patient also admits to a burning pain in her stomach recently and nausea that occurred recently. The patient admits to fatigue but states this is chronic and she is always tired. Patient denies any chest pain, shortness of breath, abdominal pain, diarrhea, blurry vision, double vision, headache. Patient admits to history of hemorrhoids but has not noticed significant bleeding recently. - Exam Vitals: Temp Pulse Resp BP Pulse Ox 97.8 F 59 18 97/47 99 08/01/18 10:47 08/01/18 10:47 08/01/18 10:47 08/01/18 10:47 08/01/18 10:47 Exam: Constitutional: No acute distress, Alert Psych: AAO x 3 HEENT: NCAT, EOMI, no significant conjunctival pallor Neck: supple, no JVD Cardio: regular rate and rhythm, +s1s2, 2/6 systolic murmur Resp: clear to ascultation bilaterally, no wheezes/rales/ronchi Abd: soft, non tender/non distended, positive bowel sounds, no gaurding/reboud/ ridgitity Extremities: no clubbing/cyanosis/edema appreciated Neuro: no focal deficits appreciated - Assessment and Plan (1) Near syncope Current Visit: Yes Status: Acute Assessment and Plan: -Reported near syncope and fall without loss of consciousness. History appears to be consistent with an orthostatic picture and given laboratory findings, concern that this maybe be secondary to patient's underlying anemia with significant drop in her hemoglobin compared to previous H&H of 11.7 approximately one year prior -Check orthostatics. -Continue telemetry. -Troponin trending down; likely demand from anemia -Echocardiogram. -Carotid duplex -no further epidsodes (2) Anemia Current Visit: Yes Status: Acute Assessment and Plan: New finding of microcytic anemia suspect 2/2 blood loss -recent history of epigastric burning and nausea -As noted in the history patient has never had a colonoscopy -Hemoccult testing positive -Trend H&H. -gi consulted -IV ppi bid for now -npo for now; if hemoglobin stable will start clear liquid diet -hold asa and plavix in light of anemia -check iron studies (3) HTN (hypertension) Current Visit: No Status: Chronic Assessment and Plan: Hold antihypertensives for now. (4) Chest pain Current Visit: Yes Status: Acute Assessment and Plan: Atypical chest pain. EKG was reviewed with cardiology, Dr. Stern. He did not appreciate any significant ST changes and attributes elevated troponin to demand ischemia in the setting of anemia. -Continue telemetry -No further chest pain -Troponin is trending down (5) Acute kidney injury Current Visit: Yes Status: Acute Assessment and Plan: Acute kidney injury likely prerenal in the setting of anemia -continue patient on maintenance fluids -hold dwight -no nsaids -avoid nephrotoxins -check u/a -check fena, upc -am bmp (6) Fibula fracture Current Visit: Yes Status: Acute Assessment and Plan: Tiny avulsion fracture of the distal fibula with lateral soft tissue swelling likely incurred after fall. -analgesia -supportive care (7) DVT prophylaxis Current Visit: No Status: Acute Assessment and Plan: Pneumatic compression devices due to concern of bleed DVT Prophylaxis: scds - Time Spent with Patient Total time spent is greater than 50% in coordination of care (as documented) at patient's floor/unit and/or counseling patient: 25 - 35 minutes Internal Medicine: Result - Labs CBC & Chem 7: 08/01/18 04:32 08/01/18 04:32 Labs: Short CBC 08/01/18 Range/Units 04:32 WBC 8.8 (4.3-11.1) K/mcL Hgb 7.4 L (11.5-15.4) g/dL Hct 24.5 L (35.3-44.9) % Plt Count 256 (140-400) K/mcL Neutrophils # 4.3 (1.6-8.9) K/mcL BMP 08/01/18 04:32 Sodium 139 Potassium 4.1 Chloride 111 H Carbon Dioxide 22 L BUN 46 H Creatinine 2.02 H Glucose 97 Calcium 8.2 L Cardiac Enzymes 07/31/18 08/01/18 08/01/18 Range/Units 21:57 04:32 09:48 Troponin I 0.09 H* 0.06 H* 0.04 H* (< 0.04) ng/mL Liver Function 08/01/18 Range/Units 04:32 Total Bilirubin 0.2 L (0.3-1.0) mg/dL AST 17 (13-39) Units/L ALT 12 (7-52) Units/L Alkaline Phosphatase 46 (34-104) Units/L Albumin 3.2 L (3.5-5.7) g/dL - Impressions Impressions Head CT 08/01/18 00:01 IMPRESSION: No acute intracranial abnormality. D/ / Isaiah Epperson MD / Isaiah Epperson MD Interpreting Provider: Isaiah Epperson MD Consult Discharge Plan - Plan Referrals: Bruce Bolden MD [Primary Care Provider] - (2) Anemia Qualifiers: Anemia type: unspecified type Qualified Code(s): D64.9 - Anemia, unspecified (3) HTN (hypertension) Qualifiers: Hypertension type: essential hypertension Qualified Code(s): I10 - Essential (primary) hypertension (4) Chest pain Qualifiers: Chest pain type: other chest pain Qualified Code(s): R07.89 - Other chest pain; R07.8 - Other chest pain (6) Fibula fracture Qualifiers: Encounter type: initial encounter Fibula location: distal Fracture type: closed Fracture morphology: unspecified fracture morphology Laterality: left Qualified Code(s): S82.832A - Other fracture of upper and lower end of left fibula, initial encounter for closed fracture
[2018-08-01 12:53] LABS: Basophils % 0.4 %; Eosinophils # 0.6 K/mcL (0.0-0.6); Eosinophils % 7.2 %; Hematocrit 26.5 % (35.3-44.9); Hemoglobin 8.1 g/dL (11.5-15.4); Immature Granulocytes % 0.3 % (0-4); Lymphocytes # 2.1 K/mcL (0.6-4.6); Lymphocytes % 26.3 %; Mean Corpuscular HGB Conc 30.6 g/dL (31.6-35.5); Mean Corpuscular Hemoglobin 25.2 pg (28.0-33.3); Mean Corpuscular Volume 82.6 fL (83.0-100.0); Mean Platelet Volume 11.5 fL (9.4-12.4); Monocytes # 0.9 K/mcL (0.0-1.3); Monocytes % 10.7 %; Neutrophils # 4.4 K/mcL (1.6-8.9); Platelet Count 228 K/mcL (140-400); Red Blood Count 3.21 M/mcL (3.82-4.97); Segmented Neutrophils % 55.1 %
--- NOTE | 2018-08-01 15:26 | General Surgery Consult Note ---
Date of Encounter: 08/01/18 Time of Encounter: 14:45 History of Present Illness Consult date: 08/01/18 Reason for consult: other (anemia) Requesting physician: Isaias Schmidt History of present illness: General Surgery / GI hemorrhage coverage 68-year-old female referred for further evaluation of anemia. The patient apparently presented to [facility], 07/31/15, following a syncopal episode which resulted in a fall. The patient describes feeling lightheaded for the past 2-3 weeks. Symptoms are more pronounced in the morning when she attempts to get out of bed. The patient apparently fell sustaining a minor bony injury (chip). Hemoglobin approximately 1 year ago was normal at 11; hemoglobin this morning 7.4, hematocrit, 24.5. Repeat H&H at approximately noon was 8.1 and 26.5. I have been counseled to to consider endoscopic evaluation. The patient reveals that she has never had a upper endoscopy or colonoscopy to date. Patient denies any detected blood per rectum no melena was all has complained of diarrhea for the past few weeks. Medical history notable for arthritis, asthma, hypertension, depression; she is using NSAIDs frequently for headaches symptoms. Surgical history: During my encounter with the patient she denied any previous surgeries, however, medical records indicate a SUSAN/BSO in 1987 Allergies: Sulfa. Med records also indicate history of allergies to azithromycin, penicillin, diuretics Medications: Escitalopram 20 mg by mouth daily Omeprazole 20 mg by mouth daily Clopidogrel 75 mg by mouth daily Albuterol sulfate 2 puffs inhalation every 6 hours as needed Lisinopril 40 mg by mouth every morning Acetaminophen 650 mg every 4 hours as needed for pain Enteric-coated aspirin 81 mg by mouth daily Social history: Patient describes being G1, P1; she does not smoke; she denies any alcohol or illicit drug use. Family history: Mother with ovarian cancer; father with liver cancer Physical examination: Age-appropriate woman resting comfortably in her hospital bed. She appears to be in no acute distress The patient has been afebrile, currently 97.8; pulse 59, respirations 18, blood pressure 97/47. Skin was warm, no obvious jaundice Lungs: Clear to auscultation; no obvious abdominal pain with deep inspiration Cardiac slow but regular rate Abdomen: Soft, nontender. No elicited tenderness or rebound. No discernible intra-abdominal masses. Extremities: No obvious clubbing, cyanosis, or edema. Impression: 68-year-old female referred for further evaluation newly detected and deficiency anemia. Iron 11, 3% saturation, transferrin 290, ferritin 13 The patient apparently had a syncopal episode suffering a fall. I have been requested to evaluate the patient endoscopically. I have discussed EGD with the patient and obtained her consent. The procedure was discussed in detail. Risks include hemorrhage, infection, aspiration, cramping abdominal pain, bloating, and perforation. Plan: As the patient has had nothing to eat or drink since her admission, we will proceed with EGD today Past Med Surg Social Fam HX - Past Medical History Medical history: arthritis, asthma, hypertension Additional medical history: H.PYLORI, Psychiatric history: depression - Past Surgical History Surgical History: SUSAN/BSO Additional surgical history: 1987 HYSTERECTOMY - Social History Smoking Status: Never smoker Smokeless Tobacco Status: No Alcohol use: none Drug use: none - Family History Mother Hx Family Cardiac Disorders: Yes Hx Family Cancer: Yes (ovary) Father Hx Family Cardiac Disorders: Yes Hx Family Cancer: Yes (liver) Hx Family Endocrine Disorder: Yes Medications and Allergies Escitalopram [Lexapro] 20 mg PO DAILY 04/28/17 [History] Omeprazole [PriLOSEC] 20 mg PO DAILY 04/28/17 [History] Clopidogrel [Plavix] 75 mg PO DAILY #30 tablet 05/01/17 [Rx] Albuterol Sulfate [Albuterol Inhaler] 2 puff IH Q6HR PRN 05/28/17 [History] Lisinopril [Zestril] 40 mg PO QAM 06/18/17 [History] Acetaminophen [Tylenol] 650 mg PO Q4HR PRN tablet 08/23/17 [Rx] Aspirin Enteric Coated [Aspirin EC] 81 mg PO DAILY #90 tablet. 08/23/17 [Rx] 3 Allergy/AdvReac Type Severity Reaction Status Date / Time azithromycin AdvReac See Verified 07/31/18 18:52 [From Zithromax Z-Toni] Comments Penicillins [PCN] AdvReac Hives Verified 07/31/18 18:52 diuretics AdvReac Mild See Uncoded 07/31/18 18:52 Comments Review of Systems All systems PM: The remainder of the systems were reviewed and are negative General Surgery Exam Initial Vital Signs Temp Pulse Resp BP Pulse Ox 99.0 F 70 18 96/50 95 07/31/18 14:50 07/31/18 14:50 07/31/18 14:50 07/31/18 14:50 07/31/18 14:50 Exam Initial Vital Signs Temp Pulse Resp BP Pulse Ox 99.0 F 70 18 96/50 95 07/31/18 14:50 07/31/18 14:50 07/31/18 14:50 07/31/18 14:50 07/31/18 14:50 Results - Labs 08/01/18 12:31 08/01/18 04:32 Abnormal lab results RBC 3.21 M/mcL (3.82-4.97) L 08/01/18 12:31 Hgb 8.1 g/dL (11.5-15.4) L 08/01/18 12:31 Hct 26.5 % (35.3-44.9) L 08/01/18 12:31 MCV 82.6 fL (83.0-100.0) L 08/01/18 12:31 MCH 25.2 pg (28.0-33.3) L 08/01/18 12:31 MCHC 30.6 g/dL (31.6-35.5) L 08/01/18 12:31 RDW 18.0 % (11.5-14.5) H 08/01/18 12:31 Chloride 111 mEq/L (98-107) H 08/01/18 04:32 Carbon Dioxide 22 mEq/L (23-29) L 08/01/18 04:32 BUN 46 mg/dL (8-23) H 08/01/18 04:32 Creatinine 2.02 mg/dL (0.60-1.20) H 08/01/18 04:32 Est GFR ( Amer) 30 (> 60) L 08/01/18 04:32 Est GFR (Non-Af Amer) 24 (> 60) L 08/01/18 04:32 Calcium 8.2 mg/dL (8.6-10.3) L 08/01/18 04:32 Iron 11 mcg/dL (50-170) L 08/01/18 09:48 % Saturation 3 % (15-50) L 08/01/18 09:48 Total Bilirubin 0.2 mg/dL (0.3-1.0) L 08/01/18 04:32 Troponin I 0.04 ng/mL (< 0.04) H* 08/01/18 09:48 Serum Total Protein 5.5 g/dL (6.4-8.9) L 08/01/18 04:32 Albumin 3.2 g/dL (3.5-5.7) L 08/01/18 04:32 Globulin 2.3 g/dL (2.4-3.5) L 08/01/18 04:32 Stool Occult Bld Scrn Positive (Negative) A 07/31/18 18:02 Diabetes panel 08/01/18 Range/Units 04:32 Sodium 139 (136-145) mEq/L Potassium 4.1 (3.5-5.1) mEq/L Chloride 111 H (98-107) mEq/L Carbon Dioxide 22 L (23-29) mEq/L BUN 46 H (8-23) mg/dL Creatinine 2.02 H (0.60-1.20) mg/dL Glucose 97 (70-105) mg/dL Calcium 8.2 L (8.6-10.3) mg/dL AST 17 (13-39) Units/L ALT 12 (7-52) Units/L Alkaline Phosphatase 46 (34-104) Units/L Albumin 3.2 L (3.5-5.7) g/dL Calcium panel 08/01/18 Range/Units 04:32 Calcium 8.2 L (8.6-10.3) mg/dL Albumin 3.2 L (3.5-5.7) g/dL Pituitary panel 08/01/18 Range/Units 04:32 Sodium 139 (136-145) mEq/L Potassium 4.1 (3.5-5.1) mEq/L Chloride 111 H (98-107) mEq/L Carbon Dioxide 22 L (23-29) mEq/L BUN 46 H (8-23) mg/dL Creatinine 2.02 H (0.60-1.20) mg/dL Glucose 97 (70-105) mg/dL Calcium 8.2 L (8.6-10.3) mg/dL Adrenal panel 08/01/18 Range/Units 04:32 Sodium 139 (136-145) mEq/L Potassium 4.1 (3.5-5.1) mEq/L Chloride 111 H (98-107) mEq/L Carbon Dioxide 22 L (23-29) mEq/L BUN 46 H (8-23) mg/dL Creatinine 2.02 H (0.60-1.20) mg/dL Glucose 97 (70-105) mg/dL Calcium 8.2 L (8.6-10.3) mg/dL Total Bilirubin 0.2 L (0.3-1.0) mg/dL AST 17 (13-39) Units/L ALT 12 (7-52) Units/L Alkaline Phosphatase 46 (34-104) Units/L Albumin 3.2 L (3.5-5.7) g/dL All other labs normal. Consult Discharge Plan - Plan Referrals: Bruce Bolden MD [Primary Care Provider] -
[2018-08-01] MEDS ORDERED: *HR* Midazolam HCl 5 MG/5 ML VIAL IVP ONE ×2 (16:49→17:12)
[2018-08-01] MEDS ORDERED: *HR* FentaNYL (PF) 100 MCG/2 ML VIAL ONE (16:50)
[2018-08-01] MEDS ORDERED: Simethicone 40 MG/0.6 ML MLS IR ONE (17:12)
[2018-08-01] MEDS ORDERED: Tetracaine/Benzocaine/Butamben 200MG/SPRAY (100SPY/BOT) MM ONE (17:12)
[2018-08-01] MEDS ORDERED: *HR* FentaNYL (PF) 100 MCG/2 ML VIAL IVP ONE (17:12)
[2018-08-01 21:26] LABS: Hemoglobin 7.7 g/dL (11.5-15.4); Mean Corpuscular HGB Conc 29.6 g/dL (31.6-35.5); Mean Corpuscular Hemoglobin 24.4 pg (28.0-33.3); Mean Corpuscular Volume 82.5 fL (83.0-100.0); Mean Platelet Volume 11.6 fL (9.4-12.4); Platelet Count 223 K/mcL (140-400); Red Blood Count 3.15 M/mcL (3.82-4.97)
[2018-08-01] MEDS: *HR* OxyCODONE Immed Rel 5 MG TABLET PO PRN (21:57)
[2018-08-02 00:40] LABS: Bilirubin,Urine Negative (Negative); Blood,Urine Small (Negative); Clarity,Urine Clear (Clear); Color,Urine Yellow (Yellow); Glucose,Urine (UA) Normal (Normal); Ketones,Urine Negative (Negative); Leukocyte Esterase,Urine Trace (Negative); Nitrite,Urine Negative (Negative); Protein,Urine Negative (Neg-Trace); Urobilinogen,Urine Normal (Normal)
[2018-08-02 00:48] LABS: Protein/Creatinine Ratio,Urine 0.16 mg/mg (0.00-0.20)
[2018-08-02 00:49] LABS: RBC,Urine 0-3 per hpf (0-3); Squamous Epithelial Cell,Urine Few per lpf (None-Few); WBC,Urine 0-3 per hpf (0-3)
[2018-08-02] MEDS: Pantoprazole 40 MG VIAL IVP SCH ×2 (06:31→18:00)
[2018-08-02] MEDS: traMADol 50 MG TABLET PO PRN (06:34)
[2018-08-02 07:35] LABS: Basophils % 0.4 %; Eosinophils # 0.6 K/mcL (0.0-0.6); Hematocrit 27.4 % (35.3-44.9); Hemoglobin 8.2 g/dL (11.5-15.4); Immature Granulocytes % 0.1 % (0-4); Lymphocytes # 1.9 K/mcL (0.6-4.6); Lymphocytes % 27.1 %; Mean Corpuscular HGB Conc 29.9 g/dL (31.6-35.5); Mean Corpuscular Hemoglobin 24.8 pg (28.0-33.3); Mean Corpuscular Volume 82.8 fL (83.0-100.0); Monocytes # 0.6 K/mcL (0.0-1.3); Monocytes % 8.3 %; Platelet Count 248 K/mcL (140-400); Red Blood Count 3.31 M/mcL (3.82-4.97); Segmented Neutrophils % 56.1 %
[2018-08-02] MEDS: Iron Polysaccharide Complex 150 MG CAPSULE PO SCH (08:24)
[2018-08-02 09:19] LABS: Calcium 8.5 mg/dL (8.6-10.3); Magnesium 2.1 mg/dL (1.6-2.6); Potassium 4.9 mEq/L (3.5-5.1)
--- NOTE | 2018-08-02 10:25 | Internal Med Progress Note ---
Hospitalist Progress Note - Encounter Date of Encounter: 08/02/18 Time of Encounter: 10:06 - Subjective Interval History: Patient seen and examined at bedside. Patient had no acute overnight events. Patient EGD yesterday which revealed no source of bleeding. Patient states that she feels overall improved. Patient denies any chest pain, shortness of breath, nausea, vomiting, diarrhea. Patient denies any melena or hematochezia. Patient admits to continued fatigue. Eplained to patient that she is iron deficient and will start iron supplementation. Also expand that she will need a colonoscopy as an outpatient and she expresses wishes to follow-up with Dr Alejandro. Explained to patient that we will continue to monitor hemoglobin and recheck in the morning. - Exam Vitals: Temp Pulse Resp BP Pulse Ox 98.0 F 58 16 146/76 95 08/02/18 06:55 08/02/18 06:55 08/02/18 06:55 08/02/18 06:55 08/02/18 07:44 Exam: Constitutional: No acute distress, Alert Psych: AAO x 3 HEENT: NCAT, EOMI Neck: supple, no JVD Cardio: regular rate and rhythm, +s1s2, 2/6 systolic murmur Resp: clear to ascultation bilaterally, no wheezes/rales/ronchi Abd: soft, non tender/non distended, positive bowel sounds Extremities: no clubbing/cyanosis/edema appreciated Neuro: no focal deficits appreciated - Assessment and Plan (1) Near syncope Current Visit: Yes Status: Acute Assessment and Plan: -Reported near syncope and fall without loss of consciousness. History appears to be consistent with an orthostatic picture and given laboratory findings, concern that this maybe be secondary to patient's underlying anemia with significant drop in her hemoglobin compared to previous H&H of 11.7 approximately one year prior -orthostatics not positive but still suspect orthostasis due hypovolemia and pt feeeling better with IVF -Continue telemetry -Troponin trending down; likely demand from anemia -Echocardiogram reviewed; no valvular abnormalities; EF 60% -Carotid duplex with stenosis of 60-79% of Right distal ICA; will need outpatient follow up with vascular surgery -no further epidsodes (2) Anemia Current Visit: Yes Status: Acute Assessment and Plan: New finding of microcytic anemia suspect 2/2 blood loss -recent history of epigastric burning and nausea -As noted in the history patient has never had a colonoscopy; will need outpt colonoscopy -egd without acute source of bleeding -hbg stable at 8.2 currently; has not required transfusion -Hemoccult testing positive -follow cbc in am -IV ppi bid for now change to po tomorrow -tolerating diet -resume asa and plavix in am due to stable hemoglobin -iron studies consistent with iron deficiency; will start supplementation (3) HTN (hypertension) Current Visit: Yes Status: Chronic Assessment and Plan: -Hold antihypertensives for now. -bp improved after IVF -resume antihypertensives as needed (4) Chest pain Current Visit: Yes Status: Acute Assessment and Plan: Atypical chest pain. EKG was reviewed with cardiology, Dr. Stern. He did not appreciate any significant ST changes and attributes elevated troponin to demand ischemia in the setting of anemia. -Continue telemetry -No further chest pain -Troponin is trending down (5) Acute kidney injury Current Visit: Yes Status: Acute Assessment and Plan: Acute kidney injury likely prerenal in the setting of anemia Resolved No need for further IV fluids currently Hold lisinopril (6) Fibula fracture Current Visit: Yes Status: Acute Assessment and Plan: Tiny avulsion fracture of the distal fibula with lateral soft tissue swelling likely incurred after fall. -analgesia -supportive care (7) DVT prophylaxis Current Visit: Yes Status: Acute Assessment and Plan: SCDs DVT Prophylaxis: scds - Summary of Assessment and Plan Summary of Assessment and Plan: follow cbc in am; if stable anticipate dc home tomorrow -will need outpt colonoscopy -will need outpt vascular surgery evaluation of right ICA stenosis - Time Spent with Patient Total time spent is greater than 50% in coordination of care (as documented) at patient's floor/unit and/or counseling patient: 25 - 35 minutes Internal Medicine: Result - Labs CBC & Chem 7: 08/02/18 06:46 08/02/18 06:46 Labs: Short CBC 08/01/18 08/01/18 08/02/18 Range/Units 12:31 21:16 06:46 WBC 8.0 6.3 7.1 (4.3-11.1) K/mcL Hgb 8.1 L 7.7 L 8.2 L (11.5-15.4) g/dL Hct 26.5 L 26.0 L 27.4 L (35.3-44.9) % Plt Count 228 223 248 (140-400) K/mcL Neutrophils # 4.4 4.0 (1.6-8.9) K/mcL BMP 08/02/18 06:46 Sodium 139 Potassium 4.9 Chloride 112 H Carbon Dioxide 22 L BUN 27 H Creatinine 1.11 Glucose 90 Calcium 8.5 L Cardiac Enzymes 08/01/18 Range/Units 09:48 Troponin I 0.04 H* (< 0.04) ng/mL Urine 08/02/18 Range/Units 00:15 Urine Color Yellow (Yellow) Urine Clarity Clear (Clear) Urine pH 6.0 (5.0-8.0) pH Units Ur Specific [place] 1.020 (1.010-1.025) Urine Protein Negative (Neg-Trace) mg/dL Urine Glucose (UA) Normal (Normal) mg/dL - Impressions Impressions Echocardiogram 08/01/18 23:24 Impressions: LVEF 60%. Moderate concentric left ventricular hypertrophy. Normal right ventricular structure and function. Mildly dilated left atrium. Mild aortic stenosis. Mild pulmonary hypertension. Left Ventricular Wall Motion: Rest Echo Findings All wall segments showed normal motion. Findings: Study Quality * Technically adequate exam. ECG Findings * Sinus bradycardia. Left Ventricle * LVEF 60%. * Normal LV chamber size and systolic function. * Moderate concentric left ventricular hypertrophy. * Indeterminate diastolic function. Right Ventricle * Normal right ventricular structure and function. Left Atrium * Mildly dilated left atrium. Right Atrium * Normal right atrial size. Interatrial Septum * Interatrial septum not well evaluated. Aortic Valve * Mildly sclerotic aortic valve leaflets. * Peak and mean gradients are 20, 12 mmHg, respectively. * V1 163 V2 277, LVOT 2, AVR 1.9 * Mild annular calcification * Mild aortic stenosis. Mitral Valve * Normal mitral valve structure and function. Tricuspid Valve * Trace tricuspid regurgitation. * Mild pulmonary hypertension. * Estimated RVSP is 46 mmHg. * Estimated RA pressure is 10 mmHg. Pulmonic Valve * Pulmonic valve not well visualized. * No pulmonic regurgitation. Aorta * Normally sized aortic root. Pericardium * The pericardium appears normal. IVC * Normal IVC dimensions and inspiratory collapse. Consult Discharge Plan - Plan Referrals: Bruce Bolden MD [Primary Care Provider] - (2) Anemia Qualifiers: Anemia type: iron deficiency (3) HTN (hypertension) Qualifiers: Hypertension type: essential hypertension Qualified Code(s): I10 - Essential (primary) hypertension (4) Chest pain Qualifiers: Chest pain type: other chest pain Qualified Code(s): R07.89 - Other chest pain; R07.8 - Other chest pain (6) Fibula fracture Qualifiers: Encounter type: initial encounter Fibula location: distal Fracture type: closed Fracture morphology: unspecified fracture morphology Laterality: left Qualified Code(s): S82.832A - Other fracture of upper and lower end of left fibula, initial encounter for closed fracture
[2018-08-02] MEDS: *HR* OxyCODONE Immed Rel 5 MG TABLET PO PRN ×2 (11:04→20:42)
--- NOTE | 2018-08-02 13:42 | General Surgery Progress Note ---
Date of Encounter: 08/02/18 Time of Encounter: 13:34 Subjective Patient reports: no new complaints, feels better Narrative: General Surgery / GI coverage Patient resting comfortably; no new complaints. No abdominal pain. Patient tolerated the EGD well. Unfortunately, the EGD did not demonstrate findings that explain the patient's anemia Colonoscopy was discussed. It has been recommended an outpatient, however, the patient wishes to proceed with the colonoscopy while she is still hospitalized. She is aware that clear liquids will be necessary for the rest of today and mechanical bowel prep this evening. The procedure was discussed. Risks include hemorrhage, infection, cramping abdominal pain, bloating, and perforation. Discussed with Dr Schmidt, Hospitalist Plan; Colonoscopy tomorrow Objective Vital Signs - Last 8 Hours Temp Pulse Resp BP Pulse Ox 08/02/18 11:21 98.3 F 64 17 154/81 94 08/02/18 07:44 95 08/02/18 06:55 98.0 F 58 16 146/76 95 Intake and Output 08/01/18 08/02/18 08/02/18 23:59 07:59 15:59 Intake Total 1000 / 1000 480 / 480 Output Total 0 / 0 Balance 1000 / 1000 0 / 0 480 / 480 Intake: IV Fluids 1000 / 1000 0.9 % Sodium Chloride 1,000 ML 1000 / 1000 @ 100 mls/hr IVC .Q10H [facility] Rx#: [id number] Oral 480 / 480 Output: Urine 0 / 0 Other: Meal Lunch Percent of Meal Consumed 90% Weight 72.4 kg Patient Weight 08/02/18 23:59 Weight 72.4 kg - Labs 08/02/18 06:46 08/02/18 06:46 Diabetes panel 08/02/18 Range/Units 06:46 Sodium 139 (136-145) mEq/L Potassium 4.9 (3.5-5.1) mEq/L Chloride 112 H (98-107) mEq/L Carbon Dioxide 22 L (23-29) mEq/L BUN 27 H (8-23) mg/dL Creatinine 1.11 (0.60-1.20) mg/dL Glucose 90 (70-105) mg/dL Calcium 8.5 L (8.6-10.3) mg/dL Calcium panel 08/02/18 Range/Units 06:46 Calcium 8.5 L (8.6-10.3) mg/dL Phosphorus 3.0 (2.7-4.5) mg/dL Pituitary panel 08/02/18 Range/Units 06:46 Sodium 139 (136-145) mEq/L Potassium 4.9 (3.5-5.1) mEq/L Chloride 112 H (98-107) mEq/L Carbon Dioxide 22 L (23-29) mEq/L BUN 27 H (8-23) mg/dL Creatinine 1.11 (0.60-1.20) mg/dL Glucose 90 (70-105) mg/dL Calcium 8.5 L (8.6-10.3) mg/dL Adrenal panel 08/02/18 Range/Units 06:46 Sodium 139 (136-145) mEq/L Potassium 4.9 (3.5-5.1) mEq/L Chloride 112 H (98-107) mEq/L Carbon Dioxide 22 L (23-29) mEq/L BUN 27 H (8-23) mg/dL Creatinine 1.11 (0.60-1.20) mg/dL Glucose 90 (70-105) mg/dL Calcium 8.5 L (8.6-10.3) mg/dL Consult Discharge Plan - Plan Referrals: Bruce Bolden MD [Primary Care Provider] -
[2018-08-02] MEDS ORDERED: Polyethylene Glycol 3350 255 GM POWDER PO ONE (13:43)
[2018-08-03] MEDS: Pantoprazole 40 MG VIAL IVP SCH (05:59)
[2018-08-03] MEDS: *HR* OxyCODONE Immed Rel 5 MG TABLET PO PRN ×3 (05:59→19:58)
[2018-08-03 08:10] LABS: Basophils % 0.6 %; Eosinophils # 0.6 K/mcL (0.0-0.6); Eosinophils % 8.7 %; Hematocrit 25.4 % (35.3-44.9); Hemoglobin 7.8 g/dL (11.5-15.4); Immature Granulocytes % 0.2 % (0-4); Lymphocytes % 29.9 %; Mean Corpuscular HGB Conc 30.7 g/dL (31.6-35.5); Mean Corpuscular Hemoglobin 24.5 pg (28.0-33.3); Mean Corpuscular Volume 79.6 fL (83.0-100.0); Mean Platelet Volume 11.7 fL (9.4-12.4); Monocytes # 0.5 K/mcL (0.0-1.3); Neutrophils # 3.4 K/mcL (1.6-8.9); Platelet Count 260 K/mcL (140-400); Red Blood Count 3.19 M/mcL (3.82-4.97); Red Cell Distribution Width 17.3 % (11.5-14.5); Segmented Neutrophils % 52.6 %
[2018-08-03] MEDS: Aspirin Enteric Coated 81 MG Tablet PO SCH (08:35)
[2018-08-03] MEDS: amLODIPine 5 MG TABLET PO SCH (08:45)
[2018-08-03] MEDS: Iron Polysaccharide Complex 150 MG CAPSULE PO SCH (08:45)
--- NOTE | 2018-08-03 10:51 | Internal Med Progress Note ---
Hospitalist Progress Note - Encounter Date of Encounter: 08/03/18 Time of Encounter: 10:46 - Subjective Interval History: Patient seen and examined at bedside. Patient had no acute overnight events. Pt to have colonocospy today. Patient and daughter state that the patient has been having left leg intermittent numbness and heaviness however she is not having any symptoms currently. Ultrasound of the carotids reveal severe right distal 60-79% stenosis; patient had right-sided CEA last year. Patient denies any numbness or weakness currently. Patient denies any chest pain, shortness breath, nausea, vomiting and admits to diarrhea with current bowel prep. She has been afebrile - Exam Vitals: Temp Pulse Resp BP Pulse Ox 98.6 F 68 17 182/72 92 08/03/18 06:58 08/03/18 06:58 08/03/18 06:58 08/03/18 06:58 08/03/18 06:58 Exam: Constitutional: No acute distress, Alert Psych: AAO x 3 HEENT: NCAT, EOMI Neck: supple, no JVD Cardio: regular rate and rhythm, +s1s2, 2/6 systolic murmur Resp: clear to ascultation bilaterally, no wheezes/rales/ronchi Abd: soft, non tender/non distended, positive bowel sounds Extremities: no clubbing/cyanosis/edema appreciated; left lower extremity eccymoses consistent with tiny avulsion fracture Neuro: no focal deficits appreciated; intact sensation bilaterally and 5 out of 5 strength in all extremities - Assessment and Plan (1) Near syncope Current Visit: Yes Status: Acute Assessment and Plan: -Reported near syncope and fall without loss of consciousness. History appears to be consistent with an orthostatic picture and given laboratory findings, concern that this maybe be secondary to patient's underlying anemia with significant drop in her hemoglobin compared to previous H&H of 11.7 approximately one year prior -orthostatics not positive but still suspect orthostasis due hypovolemia and pt feeeling better with IVF -Troponin trending down; likely demand from anemia -Echocardiogram reviewed; no valvular abnormalities; EF 60% -Carotid duplex with stenosis of 60-79% of Right distal ICA; today pt and daughter brought up intermitent left lower leg numbness and weakness; no current symptoms; will consult neurology for evaluation and recommedation on MRI -Had right sided CEA last year -no further epidsodes (2) Anemia Current Visit: Yes Status: Acute Assessment and Plan: New finding of microcytic anemia suspect 2/2 blood loss -recent history of epigastric burning and nausea -As noted in the history patient has never had a colonoscopy -colonoscopy today -egd without acute source of bleeding -hbg stable at 7.8 currently; has not required transfusion -Hemoccult testing positive -follow cbc in am -change to po PPI -tolerating diet -resume asa and plavix -iron studies consistent with iron deficiency; will start supplementation (3) HTN (hypertension) Current Visit: Yes Status: Chronic Assessment and Plan: -resume anti hypertensives; JED resolved, okay to resume INESSA (4) Chest pain Current Visit: Yes Status: Acute Assessment and Plan: Atypical chest pain. EKG was reviewed with cardiology, Dr. Stern. He did not appreciate any significant ST changes and attributes elevated troponin to demand ischemia in the setting of anemia. -Continue telemetry -No further chest pain -Troponin is trending down (5) Acute kidney injury Current Visit: Yes Status: Acute Assessment and Plan: -Acute kidney injury likely prerenal in the setting of anemia -Resolved -No need for further IV fluids currently -resume lisiniopril (6) Fibula fracture Current Visit: Yes Status: Acute Assessment and Plan: Tiny avulsion fracture of the distal fibula with lateral soft tissue swelling likely incurred after fall. -analgesia -supportive care -Walking CAM boot and WBAT -follow up with pcp as out pt (7) DVT prophylaxis Current Visit: Yes Status: Acute Assessment and Plan: SCDs DVT Prophylaxis: scds - Summary of Assessment and Plan Summary of Assessment and Plan: -colonoscopy today -Neurology consult to evaluate the patient's intermittent symptoms of left lower extremity numbness and heaviness in light of the patient's right-sided carotid stenosis - Time Spent with Patient Total time spent is greater than 50% in coordination of care (as documented) at patient's floor/unit and/or counseling patient: 25 - 35 minutes Plan of Care Discussed with: patient Internal Medicine: Result - Labs CBC & Chem 7: 08/03/18 07:11 08/02/18 06:46 Labs: Short CBC 08/03/18 Range/Units 07:11 WBC 6.5 (4.3-11.1) K/mcL Hgb 7.8 L (11.5-15.4) g/dL Hct 25.4 L (35.3-44.9) % Plt Count 260 (140-400) K/mcL Neutrophils # 3.4 (1.6-8.9) K/mcL Consult Discharge Plan - Plan Referrals: Bruce Bolden MD [Primary Care Provider] - (2) Anemia Qualifiers: Anemia type: iron deficiency (3) HTN (hypertension) Qualifiers: Hypertension type: essential hypertension Qualified Code(s): I10 - Essential (primary) hypertension (4) Chest pain Qualifiers: Chest pain type: other chest pain Qualified Code(s): R07.89 - Other chest pain; R07.8 - Other chest pain (6) Fibula fracture Qualifiers: Encounter type: initial encounter Fibula location: distal Fracture type: closed Fracture morphology: unspecified fracture morphology Laterality: left Qualified Code(s): S82.832A - Other fracture of upper and lower end of left fibula, initial encounter for closed fracture
[2018-08-03] MEDS ORDERED: NON-FORMULARY MEDICATION 1 EACH EACH (Lisinopril [Zestril] 40 MG) PO SCH (11:00)
[2018-08-03] MEDS: Lisinopril 20 MG TABLET PO SCH (14:02)
--- NOTE | 2018-08-03 14:08 | Neurology - Consult Note ---
<Inocente Fonseca P - Last Filed: 08/03/18 16:29> Date of Encounter: 08/03/18 Time of Encounter: 01:15 Assessment and Plan (1) Left sided numbness Current Visit: No Status: Chronic The patient has left sided weakness and numbness She stated that she feels weakness especially in left leg than arm due to pain She admits that she had muscle spasm in her left leg and felt left leg numb She is case of post Carotid endartectomy in June2017 She has h/o chronic back pain CT head : no acute abnormality Echo:Moderate LV hypertrophy, mildly dilated LA, pul HTN, LVEF 60% Carotid doppler: Right distal ICA : 60-79% stenosis: Left : non stenotic plaque She is already on Aspirin and plavix History of Present Illness Chief complaint: pre- syncope, left leg numbness and weakness and lightheadeness HPI: Ms. Bello is a 68 year old female with medical history of asthma, hypertension , coronary artery disease, carotid stenosis (carotid endarterectomy in June 2017)admitted in [facility] via ED for lightheadedness/ dizziness for last 2-3 weeks , presyncope episode associated with fall . Patient stated that she has had palpitation, left leg spasm and left leg weakness, numbness and burning type of pain which last for a couple of minutes. Patient states that she has been having symptoms of lightheadedness on and off for the past 2-3 weeks. She mentioned that her symptoms usually get worse when she gets up in the morning and attempts to get out of bed. She denies any symptoms of vertigo/spinning or complete loss of consciousness. She admits light headedness and weak. She denies any loss of consciousness during this episode.She denies any seizure like activities, weight loss, vomiting, tinnitus,severe headache, complete loss of consciousness. She is already in aspirin and plavix. During my visit today, the patient was lying in a bed, was alert, comfortable , She stated that she has persisted left leg pain and weakness. Vitals Bp 171/71, Pul 63, Tem 98.5 Labs : WBC 6.5,Na 139, K 4.9, Ca 8.5, glucose 90, Hb 7.8 Stool ocult blood positive Head CT : no acute abnormality Echo: LVEF 60% < Mildly dilated LA, mild pulmonary HTN, Moderate LV hypertrophy . 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 History: SUSAN/BSO Additional surgical history: 1987 HYSTERECTOMY - Social History Smoking Status: Never smoker Smokeless Tobacco Status: No Alcohol use: none Drug use: none - Family History Mother Hx Family Cardiac Disorders: Yes Hx Family Cancer: Yes (ovary) Father Hx Family Cardiac Disorders: Yes Hx Family Cancer: Yes (liver) Hx Family Endocrine Disorder: Yes Medications and Allergies Escitalopram [Lexapro] 20 mg PO DAILY 04/28/17 [History] Omeprazole [PriLOSEC] 20 mg PO DAILY 04/28/17 [History] Clopidogrel [Plavix] 75 mg PO DAILY #30 tablet 05/01/17 [Rx] Albuterol Sulfate [Albuterol Inhaler] 2 puff IH Q6HR PRN 05/28/17 [History] Lisinopril [Zestril] 40 mg PO QAM 06/18/17 [History] Acetaminophen [Tylenol] 650 mg PO Q4HR PRN tablet 08/23/17 [Rx] Aspirin Enteric Coated [Aspirin EC] 81 mg PO DAILY #90 tablet. 08/23/17 [Rx] 3 Allergy/AdvReac Type Severity Reaction Status Date / Time azithromycin AdvReac See Verified 07/31/18 18:52 [From Zithromax Z-Toni] Comments Penicillins [PCN] AdvReac Hives Verified 07/31/18 18:52 diuretics AdvReac Mild See Uncoded 07/31/18 18:52 Comments All Systems: The remainder of the systems were reviewed and are negative Physical Examination - Vital Signs Vital Signs: Initial Vital Signs Temp Pulse Resp BP Pulse Ox 99.0 F 70 18 96/50 95 07/31/18 14:50 07/31/18 14:50 07/31/18 14:50 07/31/18 14:50 07/31/18 14:50 - Constitutional General appearance: comfortable - Neurologic Sensorimotor examination: intact Detailed motor examination: full strength in all major muscle groups Motor examination - right side: 1/5: deltoids (arthritis pain), 5/5: biceps, triceps, wrist flexion, wrist extension, order administrator (feels pain during order administrator due to arthritis), hip flexors, tibialis Anterior, quadriceps, toe extension (EHL), plantarflexion Motor examination - left side: 5/5: deltoids, biceps, triceps, wrist flexion, wrist extension, hip flexors, order administrator, quadriceps (feels weak due to pain ), tibialis Anterior, toe extension (EHL), plantarflexion Detailed sensory examination: intact Reflexes: Biceps: 2+, Triceps: 2+, Brachioradialis: 2+, Patella: 2+, Achilles: 2 + Mental Status Examination: awake, alert, oriented to person, oriented to place, oriented to time, follows commands appropriately, answers questions appropriately, no agnosia, no aphasia, does not follow commands Cranial nerve examination: EOMI, visual javier intact, sensory to face intact, no facial asymmetry is present Cerebellar examination: no dysmetria, performs finger to nose and heel to murcia symmetrically without ataxia Results - Laboratory Findings CBC and BMP: 08/03/18 07:11 08/02/18 06:46 Abnormal lab findings: Abnormal lab results RBC 3.19 M/mcL (3.82-4.97) L 08/03/18 07:11 Hgb 7.8 g/dL (11.5-15.4) L 08/03/18 07:11 Hct 25.4 % (35.3-44.9) L 08/03/18 07:11 MCV 79.6 fL (83.0-100.0) L 08/03/18 07:11 MCH 24.5 pg (28.0-33.3) L 08/03/18 07:11 MCHC 30.7 g/dL (31.6-35.5) L 08/03/18 07:11 RDW 17.3 % (11.5-14.5) H 08/03/18 07:11 Chloride 112 mEq/L (98-107) H 08/02/18 06:46 Carbon Dioxide 22 mEq/L (23-29) L 08/02/18 06:46 BUN 27 mg/dL (8-23) H 08/02/18 06:46 Est GFR ( Amer) 59 (> 60) L 08/02/18 06:46 Est GFR (Non-Af Amer) 49 (> 60) L 08/02/18 06:46 Calcium 8.5 mg/dL (8.6-10.3) L 08/02/18 06:46 Iron 11 mcg/dL (50-170) L 08/01/18 09:48 % Saturation 3 % (15-50) L 08/01/18 09:48 Total Bilirubin 0.2 mg/dL (0.3-1.0) L 08/01/18 04:32 Troponin I 0.04 ng/mL (< 0.04) H* 08/01/18 09:48 Serum Total Protein 5.5 g/dL (6.4-8.9) L 08/01/18 04:32 Albumin 3.2 g/dL (3.5-5.7) L 08/01/18 04:32 Globulin 2.3 g/dL (2.4-3.5) L 08/01/18 04:32 Urine Blood Small (Negative) H 08/02/18 00:15 Ur Leukocyte Esterase Trace (Negative) H 08/02/18 00:15 Stool Occult Bld Scrn Positive (Negative) A 07/31/18 18:02 Consult Discharge Plan - Plan Referrals: Bruce Bolden MD [Primary Care Provider] - <Girish Ortiz - Last Filed: 08/03/18 17:07> Date of Encounter: 08/03/18 Time of Encounter: 16:45 Assessment and Plan (1) Left sided numbness Current Visit: No Status: Chronic At this juncture It seems that the pain originated in the heel of the left foot , and then traveled up the leg into the back. It is possible that the origin of her pain could be due to localized factors involving the left heel and foot/ ankle, or could possibly be due to lumbar radiculopathy, sciatica, or lumbar spinal stenosis. Straight leg raising on the left however is negative. Apparently she has chronic back pain as well. She does have exquisite tenderness however of the left ankle and lateral malleolus. The dizziness that she is experiencing I believe is more than likely due to non neurogenic factors. Although the carotid Doppler study reveals stenosis of the right internal carotid artery, I would not expect this to cause symptoms of dizziness. I would also not expect such aggressive atherosclerosis to cause such severe restenosis after only 1 year. Carotid artery stenosis would be more likely to cause symptoms of single vessel occlusion such as what one might expect with a stroke/TIA. I believe is more likely that the dizziness is due to perhaps her anemia, or perhaps cardiac etiologies should be considered. I will however obtain an MRI scan of the brain to rule out since of acute cerebral ischemia, I am also going to obtain a CTA scan of the brain to get a true assessment of the right internal carotid artery as well as the vertebral basilar circulation. I would recommend maintaining Plavix and aspirin as they are currently. History of Present Illness HPI: The chart was reviewed, the patient was seen and examined independently. The case was discussed with the resident. I agree with his assessment as stated above. Ms. Bello is a 68 year old female who is being seen for neurologic consultation at the request of the hospitalist secondary to left leg pain and weakness as well as dizziness. Patient states that the episodes of dizziness have been occurring intermittently over the last 2-3 weeks. She states that this is the way that she felt prior to her previous right carotid endarterectomy. She denied any headaches denied confusion. All Systems: The remainder of the systems were reviewed and are negative Review of Systems: The balance of the systems review is negative. Physical Examination - Vital Signs Vital Signs: Initial Vital Signs Temp Pulse Resp BP Pulse Ox 99.0 F 70 18 96/50 95 07/31/18 14:50 07/31/18 14:50 07/31/18 14:50 07/31/18 14:50 07/31/18 14:50 - Neurologic Motor examination - right side: 4/5: deltoids, 5/5: biceps, triceps, order administrator, hip flexors, tibialis Anterior, quadriceps, toe extension (EHL), plantarflexion Motor examination - left side: 4/5: tibialis Anterior (Some give way due to foot pain), toe extension (EHL) ("), 5/5: deltoids, biceps, triceps, hip flexors , order administrator, quadriceps Detailed sensory examination: other (There is some numbness of the region of the left lateral malleolus. Sensation is normal.) Reflexes: Biceps: 2+ (Symmetrically), Triceps: 2+ ("), Brachioradialis: 2+ ("), Patella: 2+ ("), Achilles: 2+ (") Mental Status Examination: awake, alert, oriented to person, oriented to place, oriented to time, follows commands appropriately, answers questions appropriately, no agnosia, no aphasia, no aproxia Cranial nerve examination: PERRL, no dysarthria, flexes SCM and trapezius muscles symmetrically with full power, tongue protrudes midline Results - Laboratory Findings CBC and BMP: 08/03/18 07:11 08/02/18 06:46 Abnormal lab findings: Abnormal lab results RBC 3.19 M/mcL (3.82-4.97) L 08/03/18 07:11 Hgb 7.8 g/dL (11.5-15.4) L 08/03/18 07:11 Hct 25.4 % (35.3-44.9) L 08/03/18 07:11 MCV 79.6 fL (83.0-100.0) L 08/03/18 07:11 MCH 24.5 pg (28.0-33.3) L 08/03/18 07:11 MCHC 30.7 g/dL (31.6-35.5) L 08/03/18 07:11 RDW 17.3 % (11.5-14.5) H 08/03/18 07:11 Chloride 112 mEq/L (98-107) H 08/02/18 06:46 Carbon Dioxide 22 mEq/L (23-29) L 08/02/18 06:46 BUN 27 mg/dL (8-23) H 08/02/18 06:46 Est GFR ( Amer) 59 (> 60) L 08/02/18 06:46 Est GFR (Non-Af Amer) 49 (> 60) L 08/02/18 06:46 Calcium 8.5 mg/dL (8.6-10.3) L 08/02/18 06:46 Iron 11 mcg/dL (50-170) L 08/01/18 09:48 % Saturation 3 % (15-50) L 08/01/18 09:48 Total Bilirubin 0.2 mg/dL (0.3-1.0) L 08/01/18 04:32 Troponin I 0.04 ng/mL (< 0.04) H* 08/01/18 09:48 Serum Total Protein 5.5 g/dL (6.4-8.9) L 08/01/18 04:32 Albumin 3.2 g/dL (3.5-5.7) L 08/01/18 04:32 Globulin 2.3 g/dL (2.4-3.5) L 08/01/18 04:32 Urine Blood Small (Negative) H 08/02/18 00:15 Ur Leukocyte Esterase Trace (Negative) H 08/02/18 00:15 Stool Occult Bld Scrn Positive (Negative) A 07/31/18 18:02
[2018-08-03] MEDS ORDERED: *HR* PHENYLEPHRINE 1,000 MCG/10 ML SYRINGE IVP ONE (16:48)
[2018-08-03] MEDS ORDERED: Propofol 500 MG/50 ML INFUS..BTL ONE (16:48)
[2018-08-03] MEDS ORDERED: Lidocaine -MPF 2% 2 ML VIAL ONE (16:48)
[2018-08-03] MEDS ORDERED: Isovue-370 500 ML INFUS..BTL IV ONE (16:59)
--- NOTE | 2018-08-03 17:28 | Anesthesia Evaluation PreOp ---
Date of Encounter: 08/03/18 Time of Encounter: 17:30 - Past History Planned Operation: Colonoscopy Cardiac History: HTN (on Lisinopril), Hyperlipidemia, Other (CAD on ASA Plavix) Pulmonary History: Asthma, COPD (on ProAir Symbicort) RADIOLOGICAL ENGINEER History: CVA (s/p CEA), Other (Anxiety Depression) Other Medical History: GERD Anesthesia History: No Prior Anesthetic Complications : No Alcohol Use: none Drug use: none Medications and Allergies Escitalopram [Lexapro] 20 mg PO DAILY 04/28/17 [History] Omeprazole [PriLOSEC] 20 mg PO DAILY 04/28/17 [History] Clopidogrel [Plavix] 75 mg PO DAILY #30 tablet 05/01/17 [Rx] Albuterol Sulfate [Albuterol Inhaler] 2 puff IH Q6HR PRN 05/28/17 [History] Lisinopril [Zestril] 40 mg PO QAM 06/18/17 [History] Acetaminophen [Tylenol] 650 mg PO Q4HR PRN tablet 08/23/17 [Rx] Aspirin Enteric Coated [Aspirin EC] 81 mg PO DAILY #90 tablet. 08/23/17 [Rx] 3 Allergy/AdvReac Type Severity Reaction Status Date / Time azithromycin AdvReac See Verified 07/31/18 18:52 [From Zithromax Z-Toni] Comments Penicillins [PCN] AdvReac Hives Verified 07/31/18 18:52 diuretics AdvReac Mild See Uncoded 07/31/18 18:52 Comments - Meds/Allergy Pre-op Review Medications Reviewed: Yes Allergies Reviewed: Yes Beta Blockers on Current Med List: No Anesthesia Results - Labs 08/03/18 07:11 08/02/18 06:46 - Imaging Additional studies: ECHO EF 60%, mild pulm htn Anesthesia Exam Vital Signs/O2 Sat/Glucose, Most Current Temp Pulse Resp BP Pulse Ox 08/03/18 17:22 70 18 150/95 95 08/03/18 15:41 98.7 F 66 16 182/71 93 Height: 5'0 Weight: 159 lbs NPO (# of Hours): MN Pain Scale: 0 - HEENT Pupil (Motor): Pupils equal, EOMI Mallampati: II Teeth: Missing Oral Opening: Greater than 3 - RADIOLOGICAL ENGINEER LOC: Oriented RADIOLOGICAL ENGINEER Motor: Normal RUE, Normal LUE, Normal RLE, Normal LLE, Normal Face RADIOLOGICAL ENGINEER Sensory: Normal: RUE, LUE, RLE, LLE, Face - Cardiac Rhythm: Regular Murmur: None JVD: No Carotid Bruit: No - Pulmonary Breath Sounds: bilateral Clear Respiratory Effort: Symmetrical Anesthesia Assess/Plan ASA Score: 3 (HTN CAD CVA) Modified Towson Scale for Level of Consciousness: Cooperative, oriented, and tranquil Anesthetic Plan: MAC Monitoring Plan: Standard Monitors Recovery Plan: Other (Discussed MAC, agrees to proceed)
--- NOTE | 2018-08-03 22:17 | Electrocardiograph Report ---
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
--- NOTE | 2018-08-03 22:33 | Electrocardiograph Report ---
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
[2018-08-04] MEDS: traMADol 50 MG TABLET PO PRN ×2 (01:20→21:14)
[2018-08-04 03:55] LABS: Basophils % 0.7 %; Eosinophils # 0.6 K/mcL (0.0-0.6); Eosinophils % 9.2 %; Hematocrit 26.9 % (35.3-44.9); Hemoglobin 8.2 g/dL (11.5-15.4); Immature Granulocytes % 0.2 % (0-4); Lymphocytes # 2.2 K/mcL (0.6-4.6); Lymphocytes % 36.9 %; Mean Corpuscular HGB Conc 30.5 g/dL (31.6-35.5); Mean Corpuscular Hemoglobin 24.4 pg (28.0-33.3); Mean Corpuscular Volume 80.1 fL (83.0-100.0); Mean Platelet Volume 10.8 fL (9.4-12.4); Monocytes # 0.6 K/mcL (0.0-1.3); Monocytes % 10.6 %; Neutrophils # 2.6 K/mcL (1.6-8.9); Platelet Count 272 K/mcL (140-400); Red Blood Count 3.36 M/mcL (3.82-4.97); Red Cell Distribution Width 17.2 % (11.5-14.5); Segmented Neutrophils % 42.4 %
[2018-08-04 04:19] LABS: BUN/Creatinine Ratio 15 (6-26); Blood Urea Nitrogen 14 mg/dL (8-23); Calcium 8.7 mg/dL (8.6-10.3); Carbon Dioxide 28 mEq/L (23-29); Chloride 105 mEq/L (98-107); Glucose 84 mg/dL (70-105); Osmolality,Calculated 286 (280-300); Potassium 3.8 mEq/L (3.5-5.1); Sodium 138 mEq/L (136-145); eGFR For Non-African Americans 60 (> 60)
--- NOTE | 2018-08-04 06:34 | Electrocardiograph Report ---
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
[2018-08-04] MEDS: *HR* OxyCODONE Immed Rel 5 MG TABLET PO PRN (08:29)
[2018-08-04] MEDS: amLODIPine 5 MG TABLET PO SCH (08:29)
[2018-08-04] MEDS: Lisinopril 20 MG TABLET PO SCH (08:29)
[2018-08-04] MEDS: Iron Polysaccharide Complex 150 MG CAPSULE PO SCH ×2 (08:29→08:31)
[2018-08-04] MEDS: Aspirin Enteric Coated 81 MG Tablet PO SCH (08:30)
--- NOTE | 2018-08-04 09:09 | Neurology Progress Note ---
Date of Encounter: 08/04/18 Time of Encounter: 09:07 Assessment and Plan (1) Left sided numbness Current Visit: No Status: Chronic No evidence of acute cerebral infarct present on MRI scan of the brain.. I suspect that the dizziness is more than likely due to other nonneurologic issues. The CTA of the brain does not reveal any evidence of intracranial stenosis. I did not order CTA of the neck yesterday however this was an oversight. I would like to obtain a CTA of the neck today to further assess the right internal carotid artery stenosis. Otherwise I would continue on with the aspirin 81 mg and Plavix I will also recommend a statin therapy. Subjective Interval history: Chart was reviewed, the patient was seen and examined. Patient states that she had difficulty sleeping however otherwise had an uneventful night. She states that the left foot and leg pain are improved. She has had CTA scan of the head which was unremarkable. MRI scan of the brain reveals moderate scattered deep white matter ischemic changes. However is no evidence of an acute infarct identified on diffusion images. Neurologically her examination is not changed. My intention was to also obtain a CTA of the neck however I did not place the order. I would like to have this completed to further assess the right internal carotid artery stenosis. Objective - Constitutional Vitals: Temp Pulse Resp BP Pulse Ox 97.6 F 61 16 167/79 95 08/04/18 06:48 08/04/18 06:48 08/04/18 06:48 08/04/18 06:48 08/04/18 06:48 - Neurological Exam Sensorimotor examination: Present: intact Motor Examination: Present: full strength in all major muscle groups Motor examination - right side: 5/5: deltoids, biceps, triceps, wrist flexion, wrist extension, termite technician, hip flexors, tibialis Anterior, quadriceps, toe extension (EHL), plantarflexion Motor examination - left side: 4/5: tibialis Anterior (Some give way due to foot pain), toe extension (EHL) ("), 5/5: deltoids, biceps, triceps, wrist flexion, wrist extension, hip flexors, termite technician, quadriceps, plantarflexion Sensation intact: Present: other (There is some numbness of the region of the left lateral malleolus. Sensation is normal.) Mental Status Examination: Present: awake, alert, oriented to person, oriented to place, oriented to time, follows commands appropriately, answers questions appropriately, no agnosia, no aphasia, no aproxia Cranial nerve examination: Present: PERRL, EOMI, visual javier intact, sensory to face intact, mastication intact, no facial asymmetry is present, no dysarthria, flexes SCM and trapezius muscles symmetrically with full power, tongue protrudes midline Cerebellar examination: Present: no dysmetria, performs finger to nose and heel to murcia symmetrically without ataxia Results - Laboratory Findings CBC and BMP: 08/04/18 03:42 08/04/18 03:42 Abnormal lab findings: Abnormal lab results RBC 3.36 M/mcL (3.82-4.97) L 08/04/18 03:42 Hgb 8.2 g/dL (11.5-15.4) L 08/04/18 03:42 Hct 26.9 % (35.3-44.9) L 08/04/18 03:42 MCV 80.1 fL (83.0-100.0) L 08/04/18 03:42 MCH 24.4 pg (28.0-33.3) L 08/04/18 03:42 MCHC 30.5 g/dL (31.6-35.5) L 08/04/18 03:42 RDW 17.2 % (11.5-14.5) H 08/04/18 03:42 Iron 11 mcg/dL (50-170) L 08/01/18 09:48 % Saturation 3 % (15-50) L 08/01/18 09:48 Total Bilirubin 0.2 mg/dL (0.3-1.0) L 08/01/18 04:32 Troponin I 0.04 ng/mL (< 0.04) H* 08/01/18 09:48 Serum Total Protein 5.5 g/dL (6.4-8.9) L 08/01/18 04:32 Albumin 3.2 g/dL (3.5-5.7) L 08/01/18 04:32 Globulin 2.3 g/dL (2.4-3.5) L 08/01/18 04:32 Urine Blood Small (Negative) H 08/02/18 00:15 Ur Leukocyte Esterase Trace (Negative) H 08/02/18 00:15 Stool Occult Bld Scrn Positive (Negative) A 07/31/18 18:02 Consult Discharge Plan - Plan Referrals: Bruce Bolden MD [Primary Care Provider] -
[2018-08-04] MEDS ORDERED: Isovue-370 500 ML INFUS..BTL IV ONE (09:16)
--- NOTE | 2018-08-04 12:55 | General Surgery Progress Note ---
Date of Encounter: 08/04/18 Time of Encounter: 12:48 Subjective Patient reports: no new complaints Narrative: General Surery / GI patient without complaints today. Denies any post colonoscopy complaints. No abd pain, bloating, N/V H&H stable - 8.2/26.9. The patient remains afebrile, hemodynamically stable - 97.7. Pulse 57, respirations 16, current blood pressure 103/62. Skin: Warm, without obvious jaundice Lungs: Clear Abdomen: Soft nontender. No appreciable intra-abdominal masses. EGD and colonoscopy completed during this hospitalization failed to demonstrate any distinct GI source for the patient 's iron deficiency anemia The EGD was notable for distal esophagitis. Biopsies confirm the presence reflux esophagitis with moderate chronic inactive stridorous. No dysplasia seen. The colonoscopy demonstrated a normal colon. It appears likely that the patient's anemia is one of chronic disease/ nutritional deficits which should correct with appropriate supplementation such as iron Folic acid, Vit C etc. Thank you for this consultation. I will sign off but will be available should further evaluation or intervention be indicated. Call if needed. Objective Vital Signs - Last 8 Hours Temp Pulse Resp BP Pulse Ox 08/04/18 10:33 97.7 F 57 16 103/62 92 08/04/18 06:48 97.6 F 61 16 167/79 95 08/04/18 05:26 98.1 F 58 16 159/73 94 Intake and Output 08/03/18 08/04/18 08/04/18 23:59 07:59 15:59 Other: # Voids 1 # Bowel Movements 1 Weight 70.3 kg Patient Weight 08/04/18 23:59 Weight 70.3 kg - Labs 08/04/18 03:42 08/04/18 03:42 Diabetes panel 08/04/18 Range/Units 03:42 Sodium 138 (136-145) mEq/L Potassium 3.8 (3.5-5.1) mEq/L Chloride 105 (98-107) mEq/L Carbon Dioxide 28 (23-29) mEq/L BUN 14 (8-23) mg/dL Creatinine 0.93 (0.60-1.20) mg/dL Glucose 84 (70-105) mg/dL Calcium 8.7 (8.6-10.3) mg/dL Calcium panel 08/04/18 Range/Units 03:42 Calcium 8.7 (8.6-10.3) mg/dL Pituitary panel 08/04/18 Range/Units 03:42 Sodium 138 (136-145) mEq/L Potassium 3.8 (3.5-5.1) mEq/L Chloride 105 (98-107) mEq/L Carbon Dioxide 28 (23-29) mEq/L BUN 14 (8-23) mg/dL Creatinine 0.93 (0.60-1.20) mg/dL Glucose 84 (70-105) mg/dL Calcium 8.7 (8.6-10.3) mg/dL Adrenal panel 08/04/18 Range/Units 03:42 Sodium 138 (136-145) mEq/L Potassium 3.8 (3.5-5.1) mEq/L Chloride 105 (98-107) mEq/L Carbon Dioxide 28 (23-29) mEq/L BUN 14 (8-23) mg/dL Creatinine 0.93 (0.60-1.20) mg/dL Glucose 84 (70-105) mg/dL Calcium 8.7 (8.6-10.3) mg/dL Consult Discharge Plan - Plan Referrals: Bruce Bolden MD [Primary Care Provider] -
--- NOTE | 2018-08-04 14:16 | Internal Med Progress Note ---
Hospitalist Progress Note - Encounter Date of Encounter: 08/04/18 Time of Encounter: 09:35 - Subjective Interval History: Patient is awake and alert. She continues to have pain in her left foot but denies any focal weakness or numbness. No nausea or vomiting. No diarrhea. No speech abnormalities. No chest pain or palpitations. No new episodes of hematemesis or melena. - Exam Vitals: Temp Pulse Resp BP Pulse Ox 97.7 F 57 16 103/62 92 08/04/18 10:33 08/04/18 10:33 08/04/18 10:33 08/04/18 10:33 08/04/18 10:33 Exam: General: Patient is alert, no acute distress, oriented x 3 Respiratory: Good respiratory effort. Normal breath sounds. No wheezing or crackles. Cardiovascular: Regular rate and rhythm. s1 and s2 normal No clicks, rubs, gallops, or murmurs. No pedal edema Abdomen: Abdomen is soft, nontender. Bowel sounds are present Musculoskeletal: Tenderness present at left ankle. Skin: warm, dry, intact. Neuro: Alert oriented x 3 normal cranial nerves, no focal deficits - Assessment and Plan (1) Near syncope Current Visit: Yes Status: Acute Assessment and Plan: Likely due to hypovolemia and anemia. No new episodes reported. Neurology consult appreciated. Awaiting CT angiogram of the neck. MRI of the brain did not show any acute stroke. CT angiogram of the head was also unremarkable. Carotid Dopplers showed 60-79% stenosis in the right distal ICA. She had previously had endarterectomy on this artery. Continue supportive care. On aspirin, Plavix. (2) HTN (hypertension) Current Visit: Yes Status: Chronic Assessment and Plan: Blood pressure was elevated earlier today but has since improved. Continue current meds. Continue to monitor blood pressure closely (3) DVT prophylaxis Current Visit: Yes Status: Acute Assessment and Plan: SCDs alone due to possible GI bleed. (4) Chest pain Current Visit: Yes Status: Acute Assessment and Plan: Improved. No new episodes of chest pain. (5) Acute kidney injury Current Visit: Yes Status: Resolved (6) Fibula fracture Current Visit: Yes Status: Acute Assessment and Plan: Continue cam boot. Follow-up outpatient with oral to/podiatry. PTOT. (7) Anemia Current Visit: Yes Status: Acute Assessment and Plan: Stable. Hemoglobin 8.2 today. - Time Spent with Patient Total time spent is greater than 50% in coordination of care (as documented) at patient's floor/unit and/or counseling patient: Internal Medicine: Result - Labs CBC & Chem 7: 08/04/18 03:42 08/04/18 03:42 Labs: Short CBC 08/04/18 Range/Units 03:42 WBC 6.0 (4.3-11.1) K/mcL Hgb 8.2 L (11.5-15.4) g/dL Hct 26.9 L (35.3-44.9) % Plt Count 272 (140-400) K/mcL Neutrophils # 2.6 (1.6-8.9) K/mcL BMP 08/04/18 03:42 Sodium 138 Potassium 3.8 Chloride 105 Carbon Dioxide 28 BUN 14 Creatinine 0.93 Glucose 84 Calcium 8.7 - Impressions Impressions Head CTA 08/03/18 16:59 IMPRESSION: 1. No acute intracranial abnormality. 2. Unremarkable CTA of the head. 3. Mild chronic white matter microvascular ischemic changes. D/ / Dinesh Zhu / Dinesh Zhu Interpreting Provider: Dinesh Zhu Brain MRI 08/04/18 17:00 IMPRESSION: Moderate chronic small vessel ischemic disease within the periventricular white matter of both cerebral hemispheres. Mild atrophy. No evidence of acute ischemia. D/ / 08/04/2018 08:36:34 Dejon Clarke MD / Katiuska Allen Interpreting Provider: Dejon Clarke MD Consult Discharge Plan - Plan Referrals: Bruce Bolden MD [Primary Care Provider] - (2) HTN (hypertension) Qualifiers: Hypertension type: essential hypertension Qualified Code(s): I10 - Essential (primary) hypertension (4) Chest pain Qualifiers: Chest pain type: other chest pain Qualified Code(s): R07.89 - Other chest pain; R07.8 - Other chest pain (6) Fibula fracture Qualifiers: Encounter type: initial encounter Fibula location: distal Fracture type: closed Fracture morphology: unspecified fracture morphology Laterality: left Qualified Code(s): S82.832A - Other fracture of upper and lower end of left fibula, initial encounter for closed fracture (7) Anemia Qualifiers: Anemia type: iron deficiency Qualified Code(s): D50.8 - Other iron deficiency anemias
[2018-08-04] MEDS: Acetaminophen 325 MG TABLET PO PRN (16:21)
[2018-08-05] MEDS: traMADol 50 MG TABLET PO PRN ×3 (03:24→22:29)
[2018-08-05 04:44] LABS: Basophils % 0.8 %; Eosinophils # 0.6 K/mcL (0.0-0.6); Hematocrit 29.5 % (35.3-44.9); Hemoglobin 9.2 g/dL (11.5-15.4); Immature Granulocytes % 0.2 % (0-4); Lymphocytes # 1.8 K/mcL (0.6-4.6); Lymphocytes % 34.5 %; Mean Corpuscular HGB Conc 31.2 g/dL (31.6-35.5); Mean Corpuscular Hemoglobin 24.9 pg (28.0-33.3); Mean Corpuscular Volume 79.9 fL (83.0-100.0); Mean Platelet Volume 11.6 fL (9.4-12.4); Monocytes # 0.5 K/mcL (0.0-1.3); Monocytes % 10.1 %; Neutrophils # 2.2 K/mcL (1.6-8.9); Platelet Count 317 K/mcL (140-400); Red Blood Count 3.69 M/mcL (3.82-4.97); Red Cell Distribution Width 17.1 % (11.5-14.5); Segmented Neutrophils % 42.4 %
[2018-08-05] MEDS: amLODIPine 5 MG TABLET PO SCH (07:48)
[2018-08-05] MEDS: Lisinopril 20 MG TABLET PO SCH (07:48)
[2018-08-05] MEDS: Iron Polysaccharide Complex 150 MG CAPSULE PO SCH (07:48)
[2018-08-05] MEDS: Aspirin Enteric Coated 81 MG Tablet PO SCH (07:48)
--- NOTE | 2018-08-05 09:00 | Neurology Progress Note ---
Date of Encounter: 08/05/18 Time of Encounter: 08:57 Assessment and Plan (1) Left sided numbness Current Visit: No Status: Chronic Left-sided numbness is likely due to transient ischemic attack. There is no evidence to suggest a cerebral infarct. However certainly her blood pressure requires aggressive management. Also recommend statin therapy and maintaining her antiplatelet therapy as it is currently. I will reevaluate her at your request. As may discharge her at your discretion. Subjective Interval history: The chart was reviewed, patient was seen and examined. She was sleeping in the bed peacefully when I entered the room, she was aroused easily to voice. She complains of being "dizzy" however she states that she gets this way when her blood pressure is elevated. She denies vertigo. Denies any numbness or paresthesias of the face arms or legs. The CTA of the neck was essentially normal. Objective - Constitutional Vitals: Temp Pulse Resp BP Pulse Ox 98.3 F 61 14 163/71 94 08/05/18 05:54 08/05/18 03:28 08/05/18 03:28 08/05/18 05:54 08/05/18 03:28 - Neurological Exam Sensorimotor examination: Present: intact Motor Examination: Present: full strength in all major muscle groups Motor examination - right side: 5/5: deltoids, biceps, triceps, wrist flexion, wrist extension, tin container straightener, hip flexors, tibialis Anterior, quadriceps, toe extension (EHL), plantarflexion Motor examination - left side: 4/5: tibialis Anterior (Some give way due to foot pain), toe extension (EHL) ("), 5/5: deltoids, biceps, triceps, wrist flexion, wrist extension, hip flexors, tin container straightener, quadriceps, plantarflexion Sensation intact: Present: other (There is some numbness of the region of the left lateral malleolus. Sensation is normal.) Mental Status Examination: Present: awake, alert, oriented to person, oriented to place, oriented to time, follows commands appropriately, answers questions appropriately, no agnosia, no aphasia, no aproxia Cranial nerve examination: Present: PERRL, EOMI, visual javier intact, sensory to face intact, mastication intact, no facial asymmetry is present, no dysarthria, flexes SCM and trapezius muscles symmetrically with full power, tongue protrudes midline Cerebellar examination: Present: no dysmetria, performs finger to nose and heel to murcia symmetrically without ataxia Results - Laboratory Findings CBC and BMP: 08/05/18 04:23 08/04/18 03:42 Abnormal lab findings: Abnormal lab results RBC 3.69 M/mcL (3.82-4.97) L 08/05/18 04:23 Hgb 9.2 g/dL (11.5-15.4) L 08/05/18 04:23 Hct 29.5 % (35.3-44.9) L 08/05/18 04:23 MCV 79.9 fL (83.0-100.0) L 08/05/18 04:23 MCH 24.9 pg (28.0-33.3) L 08/05/18 04:23 MCHC 31.2 g/dL (31.6-35.5) L 08/05/18 04:23 RDW 17.1 % (11.5-14.5) H 08/05/18 04:23 Iron 11 mcg/dL (50-170) L 08/01/18 09:48 % Saturation 3 % (15-50) L 08/01/18 09:48 Total Bilirubin 0.2 mg/dL (0.3-1.0) L 08/01/18 04:32 Troponin I 0.04 ng/mL (< 0.04) H* 08/01/18 09:48 Serum Total Protein 5.5 g/dL (6.4-8.9) L 08/01/18 04:32 Albumin 3.2 g/dL (3.5-5.7) L 08/01/18 04:32 Globulin 2.3 g/dL (2.4-3.5) L 08/01/18 04:32 Urine Blood Small (Negative) H 08/02/18 00:15 Ur Leukocyte Esterase Trace (Negative) H 08/02/18 00:15 Stool Occult Bld Scrn Positive (Negative) A 07/31/18 18:02 Consult Discharge Plan - Plan Referrals: Bruce Bolden MD [Primary Care Provider] -
[2018-08-05] MEDS ORDERED: Lisinopril 20 MG TABLET PO SCH (13:11)
[2018-08-05] MEDS ORDERED: Lisinopril 20 MG TABLET PO ONE (13:31)
--- NOTE | 2018-08-05 15:33 | Internal Med Progress Note ---
Hospitalist Progress Note - Encounter Date of Encounter: 08/05/18 Time of Encounter: 09:20 - Subjective Interval History: Patient complains of dizziness while lying in bed. Denies any room spinning sensation. She reports that she feels this way because her blood pressure is high. She did not have these symptoms last night. Denies any chest pain or palpitations. No nausea or vomiting. No focal weakness or numbness. - Exam Vitals: Temp Pulse Resp BP Pulse Ox 98 F 66 18 173/77 96 08/05/18 11:20 08/05/18 11:20 08/05/18 11:20 08/05/18 11:20 08/05/18 11:20 Exam: General: Patient is alert, no acute distress, oriented x 3 Respiratory: Good respiratory effort. Normal breath sounds. No wheezing or crackles. Cardiovascular: Regular rate and rhythm. s1 and s2 normal No clicks, rubs, gallops, or murmurs. No pedal edema Abdomen: Abdomen is soft, nontender. Bowel sounds are present Musculoskeletal: Spontaneously moving all extremities Skin: warm, dry, intact. Neuro: Alert oriented x 3 normal cranial nerves, no focal deficits - Assessment and Plan (1) Near syncope Current Visit: Yes Status: Acute Assessment and Plan: Reports dizziness this morning. We will check orthostatic vital signs. Monitor blood pressure closely. Patient was on lisinopril 40 mg at home. She is currently on 20 mg due to initial presentation of presyncope. We will increase dosage back to 40 mg and monitor her overnight. If her symptoms improved when her blood pressure is better controlled, she will be discharged tomorrow. (2) HTN (hypertension) Current Visit: Yes Status: Chronic Assessment and Plan: Blood pressure elevated this morning. Increase lisinopril back to 40 mg daily. (3) DVT prophylaxis Current Visit: Yes Status: Acute Assessment and Plan: SCDs (4) Chest pain Current Visit: Yes Status: Resolved Assessment and Plan: Resolved. (5) Acute kidney injury Current Visit: Yes Status: Resolved (6) Fibula fracture Current Visit: Yes Status: Acute Assessment and Plan: Continue local wound care and supportive care. We will arrange for outpatient follow-up with podiatry after discharge. (7) Anemia Current Visit: Yes Status: Acute Assessment and Plan: Hemoglobin 9.2. - Time Spent with Patient Total time spent is greater than 50% in coordination of care (as documented) at patient's floor/unit and/or counseling patient: Internal Medicine: Result - Labs CBC & Chem 7: 08/05/18 04:23 08/04/18 03:42 Labs: Short CBC 08/05/18 Range/Units 04:23 WBC 5.2 (4.3-11.1) K/mcL Hgb 9.2 L (11.5-15.4) g/dL Hct 29.5 L (35.3-44.9) % Plt Count 317 (140-400) K/mcL Neutrophils # 2.2 (1.6-8.9) K/mcL Consult Discharge Plan - Plan Referrals: Bruce Bolden MD [Primary Care Provider] - (2) HTN (hypertension) Qualifiers: Hypertension type: essential hypertension Qualified Code(s): I10 - Essential (primary) hypertension (4) Chest pain Qualifiers: Chest pain type: other chest pain Qualified Code(s): R07.89 - Other chest pain; R07.8 - Other chest pain (6) Fibula fracture Qualifiers: Encounter type: initial encounter Fibula location: distal Fracture type: closed Fracture morphology: unspecified fracture morphology Laterality: left Qualified Code(s): S82.832A - Other fracture of upper and lower end of left fibula, initial encounter for closed fracture (7) Anemia Qualifiers: Anemia type: iron deficiency Qualified Code(s): D50.8 - Other iron deficiency anemias
[2018-08-06] MEDS: traMADol 50 MG TABLET PO PRN ×2 (04:55→08:51)
[2018-08-06] MEDS: Iron Polysaccharide Complex 150 MG CAPSULE PO SCH (08:45)
[2018-08-06] MEDS: Aspirin Enteric Coated 81 MG Tablet PO SCH (08:45)
[2018-08-06] MEDS: amLODIPine 5 MG TABLET PO SCH (08:45)
[2018-08-06] MEDS ORDERED: Lisinopril 20 MG TABLET PO SCH (09:00)
--- NOTE | 2018-08-06 10:25 | Discharge Summary ---
- NOTES TO OUTPATIENT PROVIDER Notes to Outpatient Provider: Patient was hospitalized with anemia and near syncope with concern for GI bleed. She had a hemoglobin level of 8.5 and stool was positive for occult blood. As such surgery was consulted and patient underwent upper GI endoscopy and colonoscopy. No signs of active bleeding were found but she did have some mild esophagitis. Neurology was also consulted to help evaluate patient's condition. She underwent CT angiogram of the head and neck which did not show any significant blockage. She also underwent MRI of the brain which did not show any acute stroke. Carotid Doppler showed 60-79% stenosis and right distal ICA where she has previously had endarterectomy. Patient's symptoms have now improved and she is still clinically stable to be discharged. Her hemoglobin levels have remained stable but she does remain anemic. She would benefit from taking multivitamin supplements and iron supplements. Will follow up with her primary care provider after discharge for further management. The patient had a fall prior to admission and was found to have tiny avulsion fracture of the distal fibula. This is being managed conservatively and patient will follow-up with podiatry after discharge for further management. Date of Encounter: 08/06/18 Time of Encounter: 08:45 - Discharge Diagnosis (1) Near syncope Priority: Primary Status: Acute (2) HTN (hypertension) Priority: Secondary Status: Chronic Qualifiers: Hypertension type: essential hypertension Qualified Code(s): I10 - Essential (primary) hypertension (3) DVT prophylaxis Priority: Secondary Status: Acute (4) Chest pain Priority: Secondary Status: Resolved Qualifiers: Chest pain type: other chest pain Qualified Code(s): R07.89 - Other chest pain; R07.8 - Other chest pain (5) Acute kidney injury Priority: Secondary Status: Resolved (6) Fibula fracture Priority: Secondary Status: Acute Qualifiers: Encounter type: initial encounter Fibula location: distal Fracture type: closed Fracture morphology: unspecified fracture morphology Laterality: left Qualified Code(s): S82.832A - Other fracture of upper and lower end of left fibula, initial encounter for closed fracture (7) Anemia Priority: Secondary Status: Acute Qualifiers: Anemia type: iron deficiency Iron deficiency anemia type: inadequate dietary iron intake Qualified Code(s): D50.8 - Other iron deficiency anemias Hospital course: Ms. Bello is a 68 year old female Patient with history of asthma, hypertension , coronary artery disease, carotid stenosis status post right carotid endarterectomy who was was hospitalized here with anemia and near syncope with concern for GI bleed. She had a hemoglobin level of 8.5 and stool was positive for occult blood. As such surgery was consulted and patient underwent upper GI endoscopy and colonoscopy. No signs of active bleeding were found but she did have some mild esophagitis. Neurology was also consulted to help evaluate patient's condition. She underwent CT angiogram of the head and neck which did not show any significant blockage. She also underwent MRI of the brain which did not show any acute stroke. Carotid Doppler showed 60-79% stenosis and right distal ICA where she has previously had endarterectomy. Patient's symptoms have now improved and she is still clinically stable to be discharged. Her hemoglobin levels have remained stable but she does remain anemic. She would benefit from taking multivitamin supplements and iron supplements. Will follow up with her primary care provider after discharge for further management. The patient had a fall prior to admission and was found to have tiny avulsion fracture of the distal fibula. This is being managed conservatively and patient will follow-up with podiatry after discharge for further management. Discharge discussed with: patient, nurse - Time Spent with Patient Total time spent providing and/or coordinating discharge services: Greater than 30 minutes (35 min) - Discharge Medications Prescriptions: amLODIPine [Norvasc] 5 mg PO DAILY #30 tablet Atorvastatin [Lipitor] 40 mg PO HS #30 tablet Iron Polysaccharide Complex [Ferrex 150] 150 mg PO DAILY #30 capsule Vit #108/Iron/FA [ One Tablet] 1 each PO DAILY #30 tablet Home Medications: Escitalopram [Lexapro] 20 mg PO DAILY 04/28/17 [History] Omeprazole [PriLOSEC] 20 mg PO DAILY 04/28/17 [History] Clopidogrel [Plavix] 75 mg PO DAILY #30 tablet 05/01/17 [Rx] Albuterol Sulfate [Albuterol Inhaler] 2 puff IH Q6HR PRN 05/28/17 [History] Lisinopril [Zestril] 40 mg PO QAM 06/18/17 [History] Acetaminophen [Tylenol] 650 mg PO Q4HR PRN tablet 08/23/17 [Rx] Aspirin Enteric Coated [Aspirin EC] 81 mg PO DAILY #90 tablet. 08/23/17 [Rx] Atorvastatin [Lipitor] 40 mg PO HS #30 tablet 08/06/18 [Rx] Iron Polysaccharide Complex [Ferrex 150] 150 mg PO DAILY #30 capsule 08/06/18 [ Rx] Vit #108/Iron/FA [ One Tablet] 1 each PO DAILY #30 tablet 08/06 [Rx] amLODIPine [Norvasc] 5 mg PO DAILY #30 tablet 08/06/18 [Rx] Allergies/Adverse Reactions: 3 Allergy/AdvReac Type Severity Reaction Status Date / Time azithromycin AdvReac See Verified 07/31/18 18:52 [From Zithromax Z-Toni] Comments Penicillins [PCN] AdvReac Hives Verified 07/31/18 18:52 diuretics AdvReac Mild See Uncoded 07/31/18 18:52 Comments Date of admission: 07/31/18 21:21 Primary care physician: Bruce Bolden MD Consults: 08/01/18 14:56 Consult to Surgery [CONS] Routine Consulting Provider: Ned Alejandro Reason for Consult: suspect UGIB Call Completed: Yes 08/03/18 15:25 Consult to Physical Therapy [CONS] Routine Comment: Evaluate, develop and implement POC Reason for Consult: eval for needs, wbat Does patient have active BEDREST order?: No Is patient medically & hemodynamically stable?: Yes Discharging clinician: Calista Rowland Anticipated date of discharge: 08/06/18 - Constitutional Vitals: Temp Pulse Resp BP Pulse Ox 98.1 F 60 19 119/62 95 08/06/18 07:23 08/06/18 07:23 08/06/18 07:23 08/06/18 07:23 08/06/18 07:23 Exam: General: Patient is alert, no acute distress, oriented x 3 Respiratory: Good respiratory effort. Normal breath sounds. No wheezing or crackles. Cardiovascular: Regular rate and rhythm. s1 and s2 normal No clicks, rubs, gallops, or murmurs. No pedal edema Abdomen: Abdomen is soft, nontender. Bowel sounds are present Musculoskeletal: Spontaneously moving all extremities, tenderness present at left ankle Skin: warm, dry, intact. Neuro: Alert oriented x 3 normal cranial nerves, no focal deficits - Patient Status Disposition: Home, Self-Care Condition: Good Functional capacity at discharge: independent ambulation Overall status at discharge: patient is progressing back to baseline - Ambulatory Orders Ambulatory Orders: Consult to Physical Therapy [CONS] Time Frame: 1 Day, Facility: [facility], Location: Rehab Services - Discharge Instructions Follow Up With: Robert Gibbs DPM [Partnered Physician] - 08/13/18 11:30 am (Please follow up as schedule...) Bruce Bolden MD [Primary Care Provider] - (in 1-[address] Bolden office will call patient for an appointment due to not have an available soon for hospital follow up ) - Diet and Activity Activity: increase activity as tolerated Diet: advance to your usual diet
[2018-08-06 11:40] VITALS: BP 137/76
[2018-08-06] MEDS: Acetaminophen 325 MG TABLET PO PRN (13:00)
== END 2018-08-06 14:15 | disposition home or self-care (01) | DRG 812 ==
LOC: 2ANU 14:15 → EMEROOARM 14:15 → 2ANU 20:45 → SUATTDRO 21:21
PROVIDERS: ADMIT Student in an Organized Health Care Education/Training Program; ATTEND Internal Medicine
PROC: ENDOEBX (2018-08-01 16:15)

== ENCOUNTER 2019-07-01 11:39 | Inpatient (IN) ==
[2019-07-01 12:19] LABS: Basophils # 0.1 K/mcL (0.0-0.2); Basophils % 0.7 %; Eosinophils # 0.1 K/mcL (0.0-0.6); Eosinophils % 1.1 %; Hematocrit 28.2 % (35.3-44.9); Hemoglobin 8.3 g/dL (11.5-15.4); Immature Granulocytes % 0.6 % (0-4); Lymphocytes # 2.1 K/mcL (0.6-4.6); Mean Corpuscular HGB Conc 29.4 g/dL (31.6-35.5); Mean Corpuscular Hemoglobin 22.7 pg (28.0-33.3); Mean Platelet Volume 10.6 fL (9.4-12.4); Monocytes # 0.8 K/mcL (0.0-1.3); Monocytes % 8.9 %; Neutrophils # 5.9 K/mcL (1.6-8.9); Platelet Count 364 K/mcL (140-400); Red Blood Count 3.66 M/mcL (3.82-4.97); Red Cell Distribution Width 17.6 % (11.5-14.5); Segmented Neutrophils % 65.7 %
[2019-07-01] MEDS ORDERED: Lisinopril 20 MG TABLET PO SCH (12:30)
[2019-07-01 12:37] LABS: BUN/Creatinine Ratio 18 (6-26); Blood Urea Nitrogen 19 mg/dL (8-23); Calcium 8.8 mg/dL (8.6-10.3); Carbon Dioxide 24 mEq/L (23-29); Chloride 104 mEq/L (98-107); Glucose 102 mg/dL (70-105); Osmolality,Calculated 288 (280-300); Potassium 3.9 mEq/L (3.5-5.1); Sodium 138 mEq/L (136-145); eGFR For African Americans > 60 (> 60); eGFR For Non-African Americans 50 (> 60)
[2019-07-01 12:53] LABS: Troponin I 0.04 ng/mL (< 0.04)
[2019-07-01] MEDS ORDERED: Aspirin 81 MG TAB.CHEW PO STA (13:23)
[2019-07-01] MEDS ORDERED: Nitroglycerin 0.4 MG TAB.SUBL SL PRN (13:23)
[2019-07-01] MEDS ORDERED: Naloxone 0.4 MG/ML INJ IVP PRN (14:40)
[2019-07-01] MEDS: niCARdipine 20 MG/200 ML MLS IVC SCH (14:46)
[2019-07-01] MEDS ORDERED: Acetaminophen 325 MG TABLET PO PRN (15:39)
[2019-07-01] MEDS: Melatonin 3 MG TABLET PO SCH (21:45)
[2019-07-02 00:25] LABS: Hematocrit 26.5 % (35.3-44.9); Hemoglobin 7.8 g/dL (11.5-15.4); Mean Corpuscular HGB Conc 29.4 g/dL (31.6-35.5); Mean Corpuscular Hemoglobin 22.7 pg (28.0-33.3); Mean Corpuscular Volume 77.3 fL (83.0-100.0); Platelet Count 375 K/mcL (140-400); Red Blood Count 3.43 M/mcL (3.82-4.97); Red Cell Distribution Width 17.5 % (11.5-14.5); White Blood Count 8.5 K/mcL (4.3-11.1)
[2019-07-02 00:26] LABS: Immature Reticulocyte % 23.8 % (11.0-38.0); Retculocyte # 0.06 M/mcL (0.05-0.10); Reticulocyte % 1.6 % (1.6-2.8)
[2019-07-02 00:35] LABS: Alanine Aminotransferase 14 Units/L (7-52); Albumin 3.6 g/dL (3.5-5.7); Albumin/Globulin Ratio 1.4 (1.1-2.2); Alkaline Phosphatase 62 Units/L (34-104); Aspartate Amino Transferase 24 Units/L (13-39); BUN/Creatinine Ratio 21 (6-26); Bilirubin,Total 0.3 mg/dL (0.3-1.0); Blood Urea Nitrogen 20 mg/dL (8-23); Calcium 8.9 mg/dL (8.6-10.3); Carbon Dioxide 25 mEq/L (23-29); Chloride 106 mEq/L (98-107); Chol/HDL Ratio 3.2 (0-4.9); Cholesterol 177 mg/dL (< 200); Globulin 2.6 g/dL (2.4-3.5); Glucose 94 mg/dL (70-105); HDL Cholesterol 55 mg/dL (40-59); INR 1.1; LDL Cholesterol,Calculated 95 mg/dL (0-99); Magnesium 1.9 mg/dL (1.6-2.6); Osmolality,Calculated 288 (280-300); Phosphorous 4.1 mg/dL (2.7-4.5); Potassium 3.8 mEq/L (3.5-5.1); Prothrombin Time 12.4 Seconds (9.4-12.1); Sodium 138 mEq/L (136-145); Total Protein 6.2 g/dL (6.4-8.9); Triglycerides 135 mg/dL (< 150); eGFR For African Americans > 60 (> 60); eGFR For Non-African Americans 58 (> 60)
[2019-07-02 00:36] LABS: % Iron Saturation 5 % (15-50); Iron 21 mcg/dL (50-170); Transferrin 320 mg/dL (203-362)
[2019-07-02 00:57] LABS: Ferritin < 8 ng/mL (10-120)
[2019-07-02 01:00] LABS: Folate 17.5 ng/mL (3.0-16.0)
[2019-07-02] MEDS: Aspirin Enteric Coated 81 MG Tablet PO SCH (09:30)
[2019-07-02] MEDS: Lisinopril 20 MG TABLET PO SCH (09:30)
[2019-07-02] MEDS: amLODIPine 5 MG TABLET PO SCH (12:33)
[2019-07-03] MEDS ORDERED: *HR* LORazepam 2 MG/ML VIAL IVP ONE (03:13)
[2019-07-03] MEDS: Melatonin 3 MG TABLET PO SCH ×2 (03:34→23:43)
[2019-07-03 05:44] LABS: Mean Platelet Volume 11.1 fL (9.4-12.4)
[2019-07-03 05:45] LABS: Hematocrit 28.8 % (35.3-44.9); Hemoglobin 8.3 g/dL (11.5-15.4); Mean Corpuscular HGB Conc 28.8 g/dL (31.6-35.5); Mean Corpuscular Hemoglobin 22.6 pg (28.0-33.3); Mean Corpuscular Volume 78.5 fL (83.0-100.0); Platelet Count 376 K/mcL (140-400); Red Blood Count 3.67 M/mcL (3.82-4.97); Red Cell Distribution Width 17.5 % (11.5-14.5); White Blood Count 9.2 K/mcL (4.3-11.1)
[2019-07-03 06:33] LABS: BUN/Creatinine Ratio 22 (6-26); Blood Urea Nitrogen 22 mg/dL (8-23); Calcium 8.5 mg/dL (8.6-10.3); Carbon Dioxide 25 mEq/L (23-29); Chloride 108 mEq/L (98-107); Glucose 100 mg/dL (70-105); Osmolality,Calculated 283 (280-300); Sodium 135 mEq/L (136-145); eGFR For African Americans > 60 (> 60); eGFR For Non-African Americans 55 (> 60)
[2019-07-03] MEDS: niCARdipine 20 MG/200 ML MLS IVC SCH ×2 (09:18→09:19)
[2019-07-03] MEDS: Aspirin Enteric Coated 81 MG Tablet PO SCH (09:32)
[2019-07-03] MEDS: Lisinopril 20 MG TABLET PO SCH (09:32)
[2019-07-03] MEDS: amLODIPine 5 MG TABLET PO SCH (09:32)
[2019-07-03] MEDS ORDERED: *HR* Promethazine 25 MG/ML VIAL IVP PRN (19:59)
[2019-07-04 02:59] LABS: Basophils # 0.1 K/mcL (0.0-0.2); Basophils % 0.6 %; Eosinophils # 0.4 K/mcL (0.0-0.6); Eosinophils % 3.6 %; Hematocrit 28.7 % (35.3-44.9); Hemoglobin 8.4 g/dL (11.5-15.4); Immature Granulocytes % 0.3 % (0-4); Lymphocytes # 3.2 K/mcL (0.6-4.6); Lymphocytes % 30.4 %; Mean Corpuscular HGB Conc 29.3 g/dL (31.6-35.5); Mean Corpuscular Hemoglobin 22.6 pg (28.0-33.3); Mean Corpuscular Volume 77.2 fL (83.0-100.0); Mean Platelet Volume 11.1 fL (9.4-12.4); Monocytes # 0.9 K/mcL (0.0-1.3); Monocytes % 8.2 %; Neutrophils # 5.9 K/mcL (1.6-8.9); Platelet Count 406 K/mcL (140-400); Red Blood Count 3.72 M/mcL (3.82-4.97); Red Cell Distribution Width 17.5 % (11.5-14.5); Segmented Neutrophils % 56.9 %; White Blood Count 10.4 K/mcL (4.3-11.1)
[2019-07-04 03:21] LABS: BUN/Creatinine Ratio 17 (6-26); Blood Urea Nitrogen 18 mg/dL (8-23); Calcium 8.7 mg/dL (8.6-10.3); Carbon Dioxide 24 mEq/L (23-29); Chloride 104 mEq/L (98-107); Glucose 92 mg/dL (70-105); Osmolality,Calculated 286 (280-300); Potassium 3.7 mEq/L (3.5-5.1); Sodium 137 mEq/L (136-145); eGFR For African Americans > 60 (> 60); eGFR For Non-African Americans 52 (> 60)
[2019-07-04] MEDS ORDERED: *HR* Propofol 200 MG/20 ML VIAL IVP ONE (09:22)
[2019-07-04] MEDS ORDERED: Lidocaine -MPF 2% 2 ML VIAL ONE (10:47)
[2019-07-04] MEDS: Lisinopril 20 MG TABLET PO SCH (11:57)
[2019-07-04] MEDS: Aspirin Enteric Coated 81 MG Tablet PO SCH (11:57)
[2019-07-04] MEDS: amLODIPine 5 MG TABLET PO SCH (11:57)
[2019-07-04] MEDS: Melatonin 3 MG TABLET PO SCH (20:59)
[2019-07-05 06:35] LABS: Basophils # 0.1 K/mcL (0.0-0.2); Basophils % 0.9 %; Eosinophils # 0.7 K/mcL (0.0-0.6); Eosinophils % 7.7 %; Hematocrit 26.4 % (35.3-44.9); Hemoglobin 7.6 g/dL (11.5-15.4); Immature Granulocytes % 0.3 % (0-4); Lymphocytes # 2.7 K/mcL (0.6-4.6); Lymphocytes % 30.5 %; Mean Corpuscular HGB Conc 28.8 g/dL (31.6-35.5); Mean Corpuscular Hemoglobin 22.6 pg (28.0-33.3); Mean Corpuscular Volume 78.6 fL (83.0-100.0); Mean Platelet Volume 11.8 fL (9.4-12.4); Monocytes # 0.6 K/mcL (0.0-1.3); Monocytes % 7.2 %; Neutrophils # 4.8 K/mcL (1.6-8.9); Platelet Count 371 K/mcL (140-400); Red Blood Count 3.36 M/mcL (3.82-4.97); Red Cell Distribution Width 17.3 % (11.5-14.5); Segmented Neutrophils % 53.4 %; White Blood Count 8.9 K/mcL (4.3-11.1)
[2019-07-05 06:56] LABS: Hypochromasia Present (Not Present); Platelet Estimate Normal (Normal)
[2019-07-05 06:57] LABS: Anisocytosis 1+ (Not Present)
[2019-07-05 07:22] VITALS: BP 153/77
[2019-07-05] MEDS: Aspirin Enteric Coated 81 MG Tablet PO SCH (10:23)
[2019-07-05] MEDS: Lisinopril 20 MG TABLET PO SCH (10:23)
[2019-07-05] MEDS: amLODIPine 5 MG TABLET PO SCH (10:24)
== END 2019-07-05 12:31 | disposition home or self-care (01) | DRG 305 ==
LOC: EMEROOARM 11:39 → 2NNU 11:39 → SUATTDRO 18:23 → 2NNU 19:57 → 2ANU 07-02 12:02 → SUATTDRO 07-03 12:27
PROVIDERS: ADMIT Internal Medicine; ATTEND Internal Medicine

== ENCOUNTER 2020-02-14 14:28 | Observation (INO) ==
[2020-02-14 15:03] LABS: Prothrombin Time 11.9 Seconds (9.4-12.1)
[2020-02-14 15:06] LABS: Activated Partial Thrombo Time 33.6 Seconds (26.0-36.0)
[2020-02-14 15:10] LABS: Basophils % 0.4 %; Eosinophils # 0.1 K/mcL (0.0-0.6); Eosinophils % 0.8 %; Hematocrit 54.2 % (35.3-44.9); Hemoglobin 17.4 g/dL (11.5-15.4); Immature Granulocytes % 0.3 % (0-4); Lymphocytes # 2.7 K/mcL (0.6-4.6); Lymphocytes % 26.8 %; Mean Corpuscular HGB Conc 32.1 g/dL (31.6-35.5); Mean Corpuscular Volume 93.4 fL (83.0-100.0); Mean Platelet Volume 10.9 fL (9.4-12.4); Monocytes # 0.7 K/mcL (0.0-1.3); Monocytes % 6.7 %; Neutrophils # 6.6 K/mcL (1.6-8.9); Platelet Count 315 K/mcL (140-400); Red Cell Distribution Width 13.4 % (11.5-14.5); White Blood Count 10.2 K/mcL (4.3-11.1)
[2020-02-14 15:15] LABS: BUN/Creatinine Ratio 28 (6-26); Blood Urea Nitrogen 28 mg/dL (8-23); Calcium 9.5 mg/dL (8.6-10.3); Carbon Dioxide 23 mEq/L (23-29); Chloride 105 mEq/L (98-107); Glucose 129 mg/dL (70-105); Osmolality,Calculated 295 (280-300); Potassium 4.2 mEq/L (3.5-5.1); Sodium 139 mEq/L (136-145); Troponin I 0.03 ng/mL (< 0.04); eGFR For African Americans > 60 (> 60); eGFR For Non-African Americans 54 (> 60)
[2020-02-14 15:57] LABS: Bilirubin,Urine Small (Negative); Blood,Urine Negative (Negative); Clarity,Urine Clear (Clear); Color,Urine Yellow (Yellow); Glucose,Urine (UA) Normal (Normal); Ketones,Urine Trace mg/dL (Negative); Leukocyte Esterase,Urine Negative (Negative); Nitrite,Urine Negative (Negative); PH,Urine 5.5 pH Units (5.0-8.0); Protein,Urine 30 mg/dL (Neg-Trace); Specific Gravity,Urine > 1.030 (1.010-1.025); Urobilinogen,Urine Normal (Normal)
[2020-02-14 15:59] LABS: Bacteria,Urine None Seen per hpf (None-Few); Hyaline Casts,Urine Few per lpf (None-Few); Squamous Epithelial Cell,Urine Many per lpf (None-Few)
[2020-02-14] MEDS ORDERED: Aspirin 81 MG TAB.CHEW PO ONE (17:41)
[2020-02-14] MEDS ORDERED: Acetaminophen 325 MG TABLET PO PRN (20:50)
[2020-02-14] MEDS ORDERED: Ondansetron 4 MG/2 ML VIAL IVP PRN (20:50)
[2020-02-14] MEDS ORDERED: Naloxone 0.4 MG/ML INJ IVP PRN (20:50)
[2020-02-14] MEDS ORDERED: Ipratropium/Albuterol Neb 3 ML IH PRN (20:53)
[2020-02-14] MEDS: *HR* Heparin 5,000 UNIT/ML VIAL SQ SCH (21:08)
[2020-02-14] MEDS: lisinopriL 20 MG TABLET PO SCH (21:08)
[2020-02-14] MEDS ORDERED: Melatonin 3 MG TABLET PO ONE (23:44)
[2020-02-15 01:42] LABS: Basophils # 0.1 K/mcL (0.0-0.2); Basophils % 0.7 %; Eosinophils # 0.2 K/mcL (0.0-0.6); Eosinophils % 1.8 %; Hematocrit 50.7 % (35.3-44.9); Hemoglobin 16.6 g/dL (11.5-15.4); Immature Granulocytes % 0.3 % (0-4); Lymphocytes # 3.8 K/mcL (0.6-4.6); Lymphocytes % 32.8 %; Mean Corpuscular HGB Conc 32.7 g/dL (31.6-35.5); Mean Corpuscular Hemoglobin 30.7 pg (28.0-33.3); Mean Corpuscular Volume 93.9 fL (83.0-100.0); Mean Platelet Volume 10.8 fL (9.4-12.4); Monocytes % 8.7 %; Neutrophils # 6.4 K/mcL (1.6-8.9); Platelet Count 257 K/mcL (140-400); Red Cell Distribution Width 13.3 % (11.5-14.5); Segmented Neutrophils % 55.7 %; White Blood Count 11.5 K/mcL (4.3-11.1)
[2020-02-15 02:08] LABS: Alanine Aminotransferase 18 Units/L (7-52); Albumin/Globulin Ratio 1.5 (1.1-2.2); Alkaline Phosphatase 56 Units/L (34-104); Aspartate Amino Transferase 16 Units/L (13-39); BUN/Creatinine Ratio 33 (6-26); Bilirubin,Total 0.6 mg/dL (0.3-1.0); Blood Urea Nitrogen 31 mg/dL (8-23); Calcium 9.1 mg/dL (8.6-10.3); Carbon Dioxide 23 mEq/L (23-29); Chloride 106 mEq/L (98-107); Chol/HDL Ratio 3.8 (0-4.9); Cholesterol 245 mg/dL (< 200); Globulin 2.6 g/dL (2.4-3.5); Glucose 97 mg/dL (70-105); HDL Cholesterol 65 mg/dL (40-59); LDL Cholesterol,Calculated 151 mg/dL (0-99); Magnesium 1.8 mg/dL (1.6-2.6); Osmolality,Calculated 292 (280-300); Phosphorous 3.5 mg/dL (2.7-4.5); Potassium 3.8 mEq/L (3.5-5.1); Sodium 138 mEq/L (136-145); Total Protein 6.6 g/dL (6.4-8.9); Triglycerides 146 mg/dL (< 150); eGFR For African Americans > 60 (> 60); eGFR For Non-African Americans 58 (> 60)
[2020-02-15] MEDS: *HR* Heparin 5,000 UNIT/ML VIAL SQ SCH (05:55)
[2020-02-15 07:12] VITALS: BP 139/79
[2020-02-15] MEDS: lisinopriL 20 MG TABLET PO SCH (08:38)
== END 2020-02-15 11:26 | disposition home or self-care (01) ==
LOC: EMEROOARM 14:28 → 3BNU 14:28
PROVIDERS: ADMIT Family Medicine; ATTEND Family Medicine

== ENCOUNTER 2020-12-13 13:31 | Observation (INO) ==
[2020-12-13] MEDS ORDERED: Ipratropium/Albuterol Neb 3 ML IH ONE (13:51)
[2020-12-13] MEDS ORDERED: methylPREDNISolone 125 MG/2 ML VIAL IVP ONE (13:51)
[2020-12-13] MEDS ORDERED: 0.9 % Sodium Chloride 1,000 ML IVC ONE (13:56)
[2020-12-13 14:26] LABS: Basophils # 0.1 K/mcL (0.0-0.2); Basophils % 0.6 %; Eosinophils # 0.4 K/mcL (0.0-0.6); Eosinophils % 3.9 %; Hematocrit 50.5 % (35.3-44.9); Hemoglobin 16.3 g/dL (11.5-15.4); Immature Granulocytes % 0.3 % (0-4); Lymphocytes # 2.4 K/mcL (0.6-4.6); Lymphocytes % 20.8 %; Mean Corpuscular HGB Conc 32.3 g/dL (31.6-35.5); Monocytes # 0.7 K/mcL (0.0-1.3); Monocytes % 6.2 %; Neutrophils # 7.7 K/mcL (1.6-8.9); Platelet Count 252 K/mcL (140-400); Red Blood Count 5.43 M/mcL (3.82-4.97); Red Cell Distribution Width 13.1 % (11.5-14.5); Segmented Neutrophils % 68.2 %; White Blood Count 11.3 K/mcL (4.3-11.1)
[2020-12-13 14:43] LABS: Alanine Aminotransferase 14 Units/L (7-52); Albumin 4.4 g/dL (3.5-5.7); Albumin/Globulin Ratio 1.4 (1.1-2.2); Alkaline Phosphatase 70 Units/L (34-104); Aspartate Amino Transferase 17 Units/L (13-39); BUN/Creatinine Ratio 24 (6-26); Bilirubin,Total 0.4 mg/dL (0.3-1.0); Blood Urea Nitrogen 21 mg/dL (8-23); Calcium 9.7 mg/dL (8.6-10.3); Carbon Dioxide 26 mEq/L (23-29); Chloride 104 mEq/L (98-107); Globulin 3.2 g/dL (2.4-3.5); Glucose 97 mg/dL (70-105); Osmolality,Calculated 293 (280-300); Potassium 4.2 mEq/L (3.5-5.1); Sodium 140 mEq/L (136-145); Total Protein 7.6 g/dL (6.4-8.9); Troponin I 0.03 ng/mL (< 0.04); eGFR For African Americans > 60 (> 60); eGFR For Non-African Americans > 60 (> 60)
[2020-12-13] MEDS ORDERED: Azithromycin 500 MG in 0.9 % Sodium Chloride 250 ML IVPB ONE (15:20)
[2020-12-13] MEDS ORDERED: cefTRIAXone 1,000 MG in Water for inj. (sterile) 10 ML IVP ONE (15:20)
[2020-12-13] MEDS ORDERED: Naloxone 0.4 MG/ML INJ IVP PRN (15:59)
[2020-12-13] MEDS ORDERED: Ondansetron 4 MG/2 ML VIAL IVP PRN (18:27)
[2020-12-13] MEDS: Artificial Tears SOLN 15 ML BOTTLE BOTH EYES SCH (21:32)
[2020-12-13] MEDS ORDERED: Acetaminophen 325 MG TABLET PO PRN (22:01)
[2020-12-13] MEDS ORDERED: traZODone 50 MG TABLET PO ONE (22:03)
[2020-12-13] MEDS: Ipratropium/Albuterol Neb 3 ML IH SCH (22:27)
[2020-12-14] MEDS: Ipratropium/Albuterol Neb 3 ML IH SCH ×4 (03:36→22:13)
[2020-12-14 04:49] LABS: Adenovirus Not Detected (Not Detect); Bordetella Pertussis Not Detected (Not Detect); Chlamydophila pneumoniae Not Detected (Not Detect); Coronavirus 229E Not Detected (Not Detect); Coronavirus HKU1 Not Detected (Not Detect); Coronavirus NL63 Not Detected (Not Detect); Coronavirus OC43 Not Detected (Not Detect); Human Metapneumovirus Not Detected (Not Detect); Human Rhinovirus/Enterovirus DETECTED (Not Detect); Influenza A Subtype 2009 H1 Not Detected (Not Detect); Influenza B Not Detected (Not Detect); Mycoplasma pneumoniae Not Detected (Not Detect); Parainfluenza Virus 1 Not Detected (Not Detect); Parainfluenza Virus 2 Not Detected (Not Detect); Parainfluenza Virus 3 Not Detected (Not Detect); Parainfluenza Virus 4 Not Detected (Not Detect); Respiratory Syncytial Virus Not Detected (Not Detect); SARS-CoV-2 Not Detected (Not Detect)
[2020-12-14] MEDS: *HR* Enoxaparin 40 MG/0.4 ML SYRINGE SQ SCH (05:26)
[2020-12-14] MEDS ORDERED: MethylPREDNISolone 40 MG/ML VIAL IVP SCH (06:00)
[2020-12-14 08:35] LABS: Basophils % 0.1 %; Hematocrit 43.1 % (35.3-44.9); Immature Granulocytes % 0.6 % (0-4); Lymphocytes % 6.7 %; Mean Corpuscular HGB Conc 33.4 g/dL (31.6-35.5); Mean Corpuscular Hemoglobin 31.2 pg (28.0-33.3); Mean Corpuscular Volume 93.3 fL (83.0-100.0); Mean Platelet Volume 10.9 fL (9.4-12.4); Monocytes # 0.3 K/mcL (0.0-1.3); Monocytes % 2.1 %; Neutrophils # 12.9 K/mcL (1.6-8.9); Platelet Count 219 K/mcL (140-400); Red Blood Count 4.62 M/mcL (3.82-4.97); Red Cell Distribution Width 13.1 % (11.5-14.5); Segmented Neutrophils % 90.5 %; White Blood Count 14.3 K/mcL (4.3-11.1)
[2020-12-14 08:39] LABS: BUN/Creatinine Ratio 33 (6-26); Blood Urea Nitrogen 27 mg/dL (8-23); Carbon Dioxide 23 mEq/L (23-29); Chloride 108 mEq/L (98-107); Glucose 131 mg/dL (70-105); Osmolality,Calculated 295 (280-300); Potassium 4.3 mEq/L (3.5-5.1); Sodium 139 mEq/L (136-145); eGFR For African Americans > 60 (> 60); eGFR For Non-African Americans > 60 (> 60)
[2020-12-14 08:42] LABS: Hemoglobin 14.4 g/dL (11.5-15.4)
[2020-12-14] MEDS: Azithromycin 250 MG TABLET PO SCH (09:20)
[2020-12-14] MEDS: carvediloL 6.25 MG TABLET PO SCH ×2 (09:20→17:33)
[2020-12-14] MEDS: Aspirin Enteric Coated 81 MG Tablet PO SCH (09:20)
[2020-12-14] MEDS: Artificial Tears SOLN 15 ML BOTTLE BOTH EYES SCH ×3 (09:21→19:59)
[2020-12-14] MEDS ORDERED: Perflutren Lipid Microsphere 1.3 ML in 0.9 % Sodium Chloride 8.7 ML IVP PRN (10:13)
[2020-12-14] MEDS: lisinopriL 20 MG TABLET PO SCH (17:34)
[2020-12-14] MEDS: CLEAR EYES NATURAL TEARS 15 ML BOTTLE BOTH EYES PRN (20:40)
[2020-12-14] MEDS ORDERED: Melatonin 3 MG TABLET PO ONE (21:23)
[2020-12-15 01:16] LABS: Basophils % 0.1 %; Eosinophils % 0.2 %; Hematocrit 41.6 % (35.3-44.9); Hemoglobin 13.4 g/dL (11.5-15.4); Immature Granulocytes % 0.3 % (0-4); Lymphocytes # 2.8 K/mcL (0.6-4.6); Lymphocytes % 15.8 %; Mean Corpuscular HGB Conc 32.2 g/dL (31.6-35.5); Mean Corpuscular Hemoglobin 30.2 pg (28.0-33.3); Mean Corpuscular Volume 93.9 fL (83.0-100.0); Mean Platelet Volume 11.3 fL (9.4-12.4); Monocytes # 1.1 K/mcL (0.0-1.3); Monocytes % 6.4 %; Neutrophils # 13.6 K/mcL (1.6-8.9); Platelet Count 231 K/mcL (140-400); Red Blood Count 4.43 M/mcL (3.82-4.97); Red Cell Distribution Width 13.3 % (11.5-14.5); Segmented Neutrophils % 77.2 %; White Blood Count 17.7 K/mcL (4.3-11.1)
[2020-12-15 01:34] LABS: Calcium 8.8 mg/dL (8.6-10.3); Potassium 3.5 mEq/L (3.5-5.1)
[2020-12-15] MEDS: Ipratropium/Albuterol Neb 3 ML IH SCH (03:25)
[2020-12-15] MEDS: *HR* Enoxaparin 40 MG/0.4 ML SYRINGE SQ SCH (05:36)
[2020-12-15] MEDS: Aspirin Enteric Coated 81 MG Tablet PO SCH (07:51)
[2020-12-15] MEDS: carvediloL 6.25 MG TABLET PO SCH ×2 (07:51→16:09)
[2020-12-15] MEDS: lisinopriL 20 MG TABLET PO SCH (07:52)
[2020-12-15] MEDS: Azithromycin 250 MG TABLET PO SCH (07:52)
[2020-12-15] MEDS: CLEAR EYES NATURAL TEARS 15 ML BOTTLE BOTH EYES PRN ×2 (07:54→16:11)
[2020-12-15] MEDS: predniSONE 20 MG TABLET PO SCH (08:44)
[2020-12-15] MEDS ORDERED: MethylPREDNISolone 40 MG/ML VIAL IVP SCH (09:00)
[2020-12-15] MEDS: Levalbuterol Neb 0.63 MG/3 ML IH SCH ×3 (10:56→22:59)
[2020-12-15] MEDS: Ipratropium Neb 0.5 MG NEBULIZER IH SCH ×3 (10:56→22:59)
[2020-12-15] MEDS ORDERED: 0.9 % Sodium Chloride 250 ML IVC SCH (17:15)
[2020-12-16] MEDS: Ipratropium Neb 0.5 MG NEBULIZER IH SCH ×4 (04:31→21:59)
[2020-12-16] MEDS: Levalbuterol Neb 0.63 MG/3 ML IH SCH ×4 (04:31→21:59)
[2020-12-16] MEDS: *HR* Enoxaparin 40 MG/0.4 ML SYRINGE SQ SCH (05:29)
[2020-12-16 07:38] LABS: Basophils % 0.2 %; Eosinophils # 0.1 K/mcL (0.0-0.6); Eosinophils % 0.6 %; Hematocrit 45.6 % (35.3-44.9); Hemoglobin 14.7 g/dL (11.5-15.4); Immature Granulocytes % 0.6 % (0-4); Lymphocytes # 3.2 K/mcL (0.6-4.6); Lymphocytes % 25.6 %; Mean Corpuscular HGB Conc 32.2 g/dL (31.6-35.5); Mean Corpuscular Hemoglobin 30.7 pg (28.0-33.3); Mean Corpuscular Volume 95.2 fL (83.0-100.0); Mean Platelet Volume 11.1 fL (9.4-12.4); Monocytes # 0.7 K/mcL (0.0-1.3); Monocytes % 5.5 %; Neutrophils # 8.3 K/mcL (1.6-8.9); Platelet Count 228 K/mcL (140-400); Red Blood Count 4.79 M/mcL (3.82-4.97); Red Cell Distribution Width 13.2 % (11.5-14.5); Segmented Neutrophils % 67.5 %; White Blood Count 12.4 K/mcL (4.3-11.1)
[2020-12-16 07:39] LABS: BUN/Creatinine Ratio 32 (6-26); Blood Urea Nitrogen 30 mg/dL (8-23); Calcium 8.8 mg/dL (8.6-10.3); Carbon Dioxide 27 mEq/L (23-29); Chloride 109 mEq/L (98-107); Glucose 88 mg/dL (70-105); Osmolality,Calculated 300 (280-300); Potassium 3.7 mEq/L (3.5-5.1); Sodium 142 mEq/L (136-145); eGFR For African Americans > 60 (> 60); eGFR For Non-African Americans 59 (> 60)
[2020-12-16] MEDS: predniSONE 20 MG TABLET PO SCH (09:30)
[2020-12-16] MEDS: Azithromycin 250 MG TABLET PO SCH (09:30)
[2020-12-16] MEDS: carvediloL 6.25 MG TABLET PO SCH ×2 (09:31→18:02)
[2020-12-16] MEDS: Aspirin Enteric Coated 81 MG Tablet PO SCH (09:32)
[2020-12-16] MEDS: lisinopriL 20 MG TABLET PO SCH (09:32)
[2020-12-16] MEDS: CLEAR EYES NATURAL TEARS 15 ML BOTTLE BOTH EYES PRN (09:37)
[2020-12-16] MEDS: amLODIPine 5 MG TABLET PO SCH (18:02)
[2020-12-17] MEDS: Ipratropium Neb 0.5 MG NEBULIZER IH SCH ×2 (03:41→10:11)
[2020-12-17] MEDS: Levalbuterol Neb 0.63 MG/3 ML IH SCH ×2 (03:41→10:11)
[2020-12-17 05:26] LABS: Basophils % 0.2 %; Eosinophils # 0.1 K/mcL (0.0-0.6); Eosinophils % 0.4 %; Hematocrit 44.2 % (35.3-44.9); Hemoglobin 14.3 g/dL (11.5-15.4); Lymphocytes # 3.1 K/mcL (0.6-4.6); Lymphocytes % 23.3 %; Mean Corpuscular HGB Conc 32.4 g/dL (31.6-35.5); Mean Corpuscular Volume 92.9 fL (83.0-100.0); Mean Platelet Volume 11.6 fL (9.4-12.4); Monocytes # 0.8 K/mcL (0.0-1.3); Monocytes % 6.4 %; Neutrophils # 9.1 K/mcL (1.6-8.9); Platelet Count 218 K/mcL (140-400); Red Blood Count 4.76 M/mcL (3.82-4.97); Segmented Neutrophils % 68.7 %; White Blood Count 13.2 K/mcL (4.3-11.1)
[2020-12-17 05:41] LABS: BUN/Creatinine Ratio 39 (6-26); Blood Urea Nitrogen 33 mg/dL (8-23); Calcium 8.6 mg/dL (8.6-10.3); Carbon Dioxide 21 mEq/L (23-29); Chloride 108 mEq/L (98-107); Glucose 74 mg/dL (70-105); Osmolality,Calculated 294 (280-300); Potassium 3.6 mEq/L (3.5-5.1); Sodium 139 mEq/L (136-145); eGFR For African Americans > 60 (> 60); eGFR For Non-African Americans > 60 (> 60)
[2020-12-17] MEDS: amLODIPine 5 MG TABLET PO SCH (08:23)
[2020-12-17] MEDS: predniSONE 20 MG TABLET PO SCH (08:23)
[2020-12-17] MEDS: Azithromycin 250 MG TABLET PO SCH (08:23)
[2020-12-17] MEDS: Aspirin Enteric Coated 81 MG Tablet PO SCH (08:23)
[2020-12-17] MEDS: carvediloL 6.25 MG TABLET PO SCH (08:24)
[2020-12-17] MEDS: lisinopriL 20 MG TABLET PO SCH (08:25)
[2020-12-17 10:03] VITALS: BP 157/80
== END 2020-12-17 12:28 | disposition home or self-care (01) ==
LOC: EMEROOARM 13:31 → 3BNU 13:31
PROVIDERS: ADMIT Student in an Organized Health Care Education/Training Program; ATTEND Student in an Organized Health Care Education/Training Program

== ENCOUNTER 2021-08-13 16:07 | Inpatient (IN) ==
[2021-08-13] MEDS ORDERED: 0.9 % Sodium Chloride 1,000 ML IVC ONE ×2 (16:26→18:09)
[2021-08-13] MEDS ORDERED: Isovue-370 500 ML BOTTLE IVP ONE (16:28)
[2021-08-13] MEDS ORDERED: Ketorolac 15 MG/ML VIAL IVP ONE (17:21)
[2021-08-13 17:27] LABS: Basophils % 0.3 %; Eosinophils # 0.1 K/mcL (0.0-0.6); Eosinophils % 0.4 %; Hematocrit 47.8 % (35.3-44.9); Hemoglobin 15.4 g/dL (11.5-15.4); Immature Granulocytes % 0.3 % (0-4); Lymphocytes # 2.6 K/mcL (0.6-4.6); Lymphocytes % 16.6 %; Mean Corpuscular HGB Conc 32.2 g/dL (31.6-35.5); Mean Corpuscular Hemoglobin 30.7 pg (28.0-33.3); Mean Corpuscular Volume 95.2 fL (83.0-100.0); Mean Platelet Volume 11.1 fL (9.4-12.4); Monocytes # 0.7 K/mcL (0.0-1.3); Monocytes % 4.7 %; Platelet Count 267 K/mcL (140-400); Red Blood Count 5.02 M/mcL (3.82-4.97); Red Cell Distribution Width 14.3 % (11.5-14.5); Segmented Neutrophils % 77.7 %; White Blood Count 15.4 K/mcL (4.3-11.1)
[2021-08-13 17:34] LABS: INR 1.1; Prothrombin Time 12.5 Seconds (9.4-12.1)
[2021-08-13 17:36] LABS: Activated Partial Thrombo Time 34.7 Seconds (26.0-36.0)
[2021-08-13 18:07] LABS: Albumin 3.9 g/dL (3.5-5.7); Albumin/Globulin Ratio 1.3 (1.1-2.2); Bilirubin,Total 0.3 mg/dL (0.3-1.0); Calcium 9.2 mg/dL (8.6-10.3); Magnesium 1.9 mg/dL (1.6-2.6); Thyroid Stimulating Hormone 1.128 mcIU/mL (0.340-5.600); Total Protein 6.9 g/dL (6.4-8.9); Troponin I 0.06 ng/mL (< 0.04)
[2021-08-13] MEDS ORDERED: *HR* FentaNYL (PF) 100 MCG/2 ML VIAL IVP ONE (18:20)
[2021-08-13 18:54] LABS: Bacteria,Urine Few per hpf (None-Few); Bilirubin,Urine Negative (Negative); Blood,Urine Negative (Negative); Clarity,Urine Turbid (Clear); Color,Urine Yellow (Yellow); Glucose,Urine (UA) Normal (Normal); Hyaline Casts,Urine Many per lpf (None Seen); Ketones,Urine Trace mg/dL (Negative); Leukocyte Esterase,Urine Moderate (Negative); Mucus,Urine Few per lpf (None-Few); Nitrite,Urine Negative (Negative); PH,Urine 5.5 pH Units (5.0-8.0); Protein,Urine 100 mg/dL (Neg-Trace); RBC,Urine 0-3 per hpf (0-3); Specific Gravity,Urine 1.027 (1.010-1.025); Squamous Epithelial Cell,Urine Few per hpf (None-Few)
[2021-08-13] MEDS ORDERED: cefTRIAXone 1,000 MG in Water for inj. (sterile) 10 ML IVP ONE (19:34)
[2021-08-13] MEDS ORDERED: Melatonin 3 MG TABLET PO PRN (19:36)
[2021-08-13] MEDS ORDERED: Naloxone 0.4 MG/ML INJ IVP PRN (19:36)
[2021-08-14] MEDS: *HR* Heparin 5,000 UNIT/ML VIAL SQ SCH ×2 (06:20→16:35)
[2021-08-14 07:51] LABS: Basophils % 0.3 %; Eosinophils # 0.2 K/mcL (0.0-0.6); Eosinophils % 1.9 %; Hematocrit 41.6 % (35.3-44.9); Immature Granulocytes % 0.4 % (0-4); Lymphocytes # 2.7 K/mcL (0.6-4.6); Lymphocytes % 23.8 %; Mean Corpuscular HGB Conc 31.7 g/dL (31.6-35.5); Mean Corpuscular Hemoglobin 30.7 pg (28.0-33.3); Mean Corpuscular Volume 96.7 fL (83.0-100.0); Mean Platelet Volume 11.2 fL (9.4-12.4); Monocytes # 0.8 K/mcL (0.0-1.3); Monocytes % 7.2 %; Neutrophils # 7.5 K/mcL (1.6-8.9); Platelet Count 178 K/mcL (140-400); Red Cell Distribution Width 14.5 % (11.5-14.5); Segmented Neutrophils % 66.4 %; White Blood Count 11.4 K/mcL (4.3-11.1)
[2021-08-14 07:58] LABS: Hemoglobin 13.2 g/dL (11.5-15.4)
[2021-08-14 08:20] LABS: Calcium 8.3 mg/dL (8.6-10.3); Phosphorous 4.4 mg/dL (2.7-4.5); Potassium 3.9 mEq/L (3.5-5.1)
[2021-08-14] MEDS ORDERED: cefTRIAXone 1,000 MG in Water for inj. (sterile) 10 ML IVP SCH (09:00)
[2021-08-14] MEDS: 0.9 % Sodium Chloride 1,000 ML IVC SCH ×2 (09:32→21:02)
[2021-08-14] MEDS: Cyanocobalamin (B-12) 1,000 MCG TABLET PO SCH (09:32)
[2021-08-14] MEDS: Aspirin Enteric Coated 81 MG Tablet PO SCH (09:59)
[2021-08-14 11:28] LABS: Chol/HDL Ratio 3.8 (0-4.9)
[2021-08-14] MEDS: *HR* OxyCODONE Immed Rel 5 MG TABLET PO PRN (13:07)
[2021-08-14 16:27] LABS: Adenovirus Not Detected (Not Detect); Bordetella Pertussis Not Detected (Not Detect); Chlamydophila pneumoniae Not Detected (Not Detect); Coronavirus 229E Not Detected (Not Detect); Coronavirus HKU1 Not Detected (Not Detect); Coronavirus NL63 Not Detected (Not Detect); Coronavirus OC43 Not Detected (Not Detect); Human Metapneumovirus Not Detected (Not Detect); Human Rhinovirus/Enterovirus Not Detected (Not Detect); Influenza A Subtype 2009 H1 Not Detected (Not Detect); Influenza B Not Detected (Not Detect); Mycoplasma pneumoniae Not Detected (Not Detect); Parainfluenza Virus 1 Not Detected (Not Detect); Parainfluenza Virus 2 Not Detected (Not Detect); Parainfluenza Virus 3 Not Detected (Not Detect); Parainfluenza Virus 4 Not Detected (Not Detect); Respiratory Syncytial Virus Not Detected (Not Detect); SARS-CoV-2 Not Detected (Not Detect)
[2021-08-15] MEDS: 0.9 % Sodium Chloride 1,000 ML IVC SCH (06:15)
[2021-08-15] MEDS: *HR* Heparin 5,000 UNIT/ML VIAL SQ SCH (06:16)
[2021-08-15 06:39] LABS: Basophils # 0.1 K/mcL (0.0-0.2); Basophils % 0.6 %; Eosinophils # 0.3 K/mcL (0.0-0.6); Eosinophils % 3.9 %; Hematocrit 37.4 % (35.3-44.9); Hemoglobin 11.9 g/dL (11.5-15.4); Immature Granulocytes % 0.2 % (0-4); Lymphocytes % 23.9 %; Mean Corpuscular HGB Conc 31.8 g/dL (31.6-35.5); Mean Corpuscular Hemoglobin 30.7 pg (28.0-33.3); Mean Corpuscular Volume 96.6 fL (83.0-100.0); Mean Platelet Volume 11.4 fL (9.4-12.4); Monocytes # 0.6 K/mcL (0.0-1.3); Monocytes % 7.6 %; Neutrophils # 5.3 K/mcL (1.6-8.9); Platelet Count 151 K/mcL (140-400); Red Blood Count 3.87 M/mcL (3.82-4.97); Red Cell Distribution Width 13.8 % (11.5-14.5); Segmented Neutrophils % 63.8 %; White Blood Count 8.3 K/mcL (4.3-11.1)
[2021-08-15 06:56] LABS: BUN/Creatinine Ratio 29 (6-26); Blood Urea Nitrogen 28 mg/dL (8-23); Calcium 7.9 mg/dL (8.6-10.3); Carbon Dioxide 21 mEq/L (23-29); Chloride 111 mEq/L (98-107); Glucose 83 mg/dL (70-105); Magnesium 1.5 mg/dL (1.6-2.6); Osmolality,Calculated 291 (280-300); Phosphorous 2.8 mg/dL (2.7-4.5); Sodium 138 mEq/L (136-145); eGFR For African Americans > 60 (> 60); eGFR For Non-African Americans 58 (> 60)
[2021-08-15 07:01] VITALS: BP 161/77; PULSE 62; TEMP 98.1; O2SAT 95
[2021-08-15] MEDS: *HR* OxyCODONE Immed Rel 5 MG TABLET PO PRN (08:23)
[2021-08-15] MEDS: Cyanocobalamin (B-12) 1,000 MCG TABLET PO SCH (08:24)
[2021-08-15] MEDS: Aspirin Enteric Coated 81 MG Tablet PO SCH (08:24)
[2021-08-15] MEDS ORDERED: lisinopriL 20 MG TABLET PO SCH (09:15)
== END 2021-08-15 12:10 | disposition home or self-care (01) | DRG 682 ==
LOC: 3BNU 16:07 → EMEROOARM 16:07 → OBSVTOIN 19:43 → SUATTDRO 19:43 → 3BNU 20:13
PROVIDERS: ADMIT Internal Medicine; ATTEND Internal Medicine

== ENCOUNTER 2021-09-25 09:55 | Observation (INO) ==
[2021-09-25] MEDS ORDERED: 0.9 % Sodium Chloride 1,000 ML ONE (10:14)
[2021-09-25] MEDS ORDERED: Isovue-370 500 ML BOTTLE IVP ONE (10:21)
[2021-09-25] MEDS ORDERED: 0.9 % Sodium Chloride 500 ML IVC ONE (10:24)
[2021-09-25 10:39] LABS: Basophils # 0.1 K/mcL (0.0-0.2); Basophils % 0.5 %; Eosinophils # 0.3 K/mcL (0.0-0.6); Eosinophils % 2.4 %; Hematocrit 46.1 % (35.3-44.9); Hemoglobin 15.1 g/dL (11.5-15.4); Immature Granulocytes % 0.3 % (0-4); Lymphocytes # 2.7 K/mcL (0.6-4.6); Lymphocytes % 23.5 %; Mean Corpuscular HGB Conc 32.8 g/dL (31.6-35.5); Mean Corpuscular Hemoglobin 31.6 pg (28.0-33.3); Mean Corpuscular Volume 96.4 fL (83.0-100.0); Mean Platelet Volume 11.2 fL (9.4-12.4); Monocytes # 0.7 K/mcL (0.0-1.3); Monocytes % 5.6 %; Neutrophils # 7.8 K/mcL (1.6-8.9); Platelet Count 303 K/mcL (140-400); Red Blood Count 4.78 M/mcL (3.82-4.97); Red Cell Distribution Width 13.4 % (11.5-14.5); Segmented Neutrophils % 67.7 %; White Blood Count 11.6 K/mcL (4.3-11.1)
[2021-09-25] MEDS ORDERED: *HR* HYDROmorphone (PF) 1 MG/ML SYRINGE IVP ONE (10:45)
[2021-09-25 10:49] LABS: INR 1.2; Prothrombin Time 13.6 Seconds (9.4-12.1)
[2021-09-25 10:51] LABS: Activated Partial Thrombo Time 33.9 Seconds (26.0-36.0)
[2021-09-25 11:21] LABS: Albumin/Globulin Ratio 1.4 (1.1-2.2); Bilirubin,Total 0.4 mg/dL (0.3-1.0); Calcium 9.3 mg/dL (8.6-10.3); Globulin 2.9 g/dL (2.4-3.5); Magnesium 1.7 mg/dL (1.6-2.6); Potassium 3.7 mEq/L (3.5-5.1); Total Protein 6.9 g/dL (6.4-8.9)
[2021-09-25 11:33] LABS: Influenza A PCR Negative (Negative); Influenza B PCR Negative (Negative); Resp. Syncytial Virus PCR Negative (Negative)
[2021-09-25 12:26] LABS: SARS-CoV-2 by PCR (In House) Negative (Negative)
[2021-09-25] MEDS ORDERED: Naloxone 0.4 MG/ML INJ IVP PRN (14:27)
[2021-09-25] MEDS: 0.9 % Sodium Chloride 1,000 ML IVC SCH (17:18)
[2021-09-25 21:06] LABS: Adenovirus F 40/41 PCR Not detected (Not detect); Astrovirus PCR Not detected (Not detect); C.difficile Toxin A/B Gene PCR Not detected (Not detect); Campylobacter by PCR Not detected (Not detect); Cryptosporidium by PCR Not detected (Not detect); Cyclospora cayetanensis PCR Not detected (Not detect); E. coli O157 by PCR Not detected (Not detect); Entamoeba histolytica PCR Not detected (Not detect); Enteroaggregative E.coli(EAEC) Not detected (Not detect); Enteropathogenic E.coli(EPEC) Not detected (Not detect); Enterotoxigenic E.coli (ETEC) Not detected (Not detect); Giardia lamblia PCR Not detected (Not detect); Norovirus GI/GII PCR Not detected (Not detect); Plesiomonas shigelloides PCR Not detected (Not detect); Rotavirus A PCR Not detected (Not detect); Salmonella PCR Not detected (Not detect); Sapovirus PCR Not detected (Not detect); Shig/EnteroinvasiveE coli EIEC Not detected (Not detect); Shigalike tox-prod E coli STEC Not detected (Not detect); Vibrio PCR Not detected (Not detect); Vibrio cholerae PCR Not detected (Not detect); Yersinia enterocolitica PCR Not detected (Not detect)
[2021-09-26 01:31] LABS: Albumin/Globulin Ratio 1.5 (1.1-2.2); Bilirubin,Total 0.2 mg/dL (0.3-1.0); Calcium 7.5 mg/dL (8.6-10.3); Potassium 3.5 mEq/L (3.5-5.1)
[2021-09-26 01:43] LABS: Basophils % 0.5 %; Eosinophils # 0.3 K/mcL (0.0-0.6); Eosinophils % 3.4 %; Hematocrit 37.7 % (35.3-44.9); Immature Granulocytes % 0.1 % (0-4); Lymphocytes # 2.3 K/mcL (0.6-4.6); Lymphocytes % 27.3 %; Mean Corpuscular HGB Conc 31.8 g/dL (31.6-35.5); Mean Corpuscular Hemoglobin 31.3 pg (28.0-33.3); Mean Corpuscular Volume 98.4 fL (83.0-100.0); Mean Platelet Volume 11.2 fL (9.4-12.4); Monocytes # 0.7 K/mcL (0.0-1.3); Monocytes % 8.6 %; Platelet Count 216 K/mcL (140-400); Red Blood Count 3.83 M/mcL (3.82-4.97); Red Cell Distribution Width 13.6 % (11.5-14.5); Segmented Neutrophils % 60.1 %; White Blood Count 8.3 K/mcL (4.3-11.1)
[2021-09-26] MEDS ORDERED: Acetaminophen 325 MG TABLET PO PRN (03:03)
[2021-09-26] MEDS: 0.9 % Sodium Chloride 1,000 ML IVC SCH (03:09)
[2021-09-26 10:43] VITALS: BP 137/71; PULSE 63; TEMP 97.9; O2SAT 96
== END 2021-09-26 13:42 | disposition home or self-care (01) ==
LOC: EMEROOARM 09:55 → 3BNU 09:55 → SUATTDRO 16:16 → 3BNU 17:15
PROVIDERS: ADMIT Internal Medicine; ATTEND Registered Nurse

== ENCOUNTER 2021-11-29 19:46 | Inpatient (IN) ==
[2021-11-29] MEDS ORDERED: 0.9 % Sodium Chloride 1,000 ML IVC ONE (23:19)
[2021-11-30 00:02] LABS: INR 1.3; Prothrombin Time 14.3 Seconds (9.4-12.1)
[2021-11-30 00:13] LABS: Albumin/Globulin Ratio 1.4 (1.1-2.2); Bilirubin,Total 0.5 mg/dL (0.3-1.0); Calcium 9.1 mg/dL (8.6-10.3); Globulin 2.8 g/dL (2.4-3.5); Magnesium 1.5 mg/dL (1.6-2.6); Potassium 3.1 mEq/L (3.5-5.1); Total Protein 6.8 g/dL (6.4-8.9)
[2021-11-30 00:21] LABS: Basophils % 0.3 %; Eosinophils % 0.1 %; Hematocrit 47.4 % (35.3-44.9); Hemoglobin 15.8 g/dL (11.5-15.4); Immature Granulocytes % 0.3 % (0-4); Lymphocytes # 2.8 K/mcL (0.6-4.6); Lymphocytes % 24.6 %; Mean Corpuscular HGB Conc 33.3 g/dL (31.6-35.5); Mean Corpuscular Hemoglobin 30.2 pg (28.0-33.3); Mean Corpuscular Volume 90.5 fL (83.0-100.0); Mean Platelet Volume 11.6 fL (9.4-12.4); Monocytes # 0.9 K/mcL (0.0-1.3); Monocytes % 8.1 %; Neutrophils # 7.5 K/mcL (1.6-8.9); Platelet Count 277 K/mcL (140-400); Red Blood Count 5.24 M/mcL (3.82-4.97); Red Cell Distribution Width 13.2 % (11.5-14.5); Segmented Neutrophils % 66.6 %; Troponin I 0.05 ng/mL (< 0.04); White Blood Count 11.2 K/mcL (4.3-11.1)
[2021-11-30] MEDS ORDERED: Acetaminophen 325 MG TABLET PO ONE (00:28)
[2021-11-30 00:30] LABS: Thyroid Stimulating Hormone 2.516 mcIU/mL (0.340-5.600)
[2021-11-30 01:42] LABS: Adenovirus Not Detected (Not Detect); Coronavirus 229E Not Detected (Not Detect); Coronavirus HKU1 Not Detected (Not Detect); Coronavirus NL63 Not Detected (Not Detect); Coronavirus OC43 Not Detected (Not Detect)
[2021-11-30 01:43] LABS: Bordetella Pertussis Not Detected (Not Detect); Chlamydophila pneumoniae Not Detected (Not Detect); Human Metapneumovirus Not Detected (Not Detect); Human Rhinovirus/Enterovirus DETECTED (Not Detect); Influenza A Subtype 2009 H1 Not Detected (Not Detect); Influenza B Not Detected (Not Detect); Mycoplasma pneumoniae Not Detected (Not Detect); Parainfluenza Virus 1 Not Detected (Not Detect); Parainfluenza Virus 2 Not Detected (Not Detect); Parainfluenza Virus 3 Not Detected (Not Detect); Parainfluenza Virus 4 Not Detected (Not Detect); Respiratory Syncytial Virus Not Detected (Not Detect); SARS-CoV-2 Not Detected (Not Detect)
[2021-11-30] MEDS ORDERED: hydrOXYzine pamoate 25 MG CAPSULE PO ONE (02:42)
[2021-11-30] MEDS ORDERED: Melatonin 3 MG TABLET PO ONE (02:54)
[2021-11-30] MEDS ORDERED: Melatonin 3 MG TABLET PO PRN (03:56)
[2021-11-30] MEDS ORDERED: Naloxone 0.4 MG/ML INJ IVP PRN (03:56)
[2021-11-30] MEDS ORDERED: Acetaminophen 325 MG TABLET PO PRN (03:56)
[2021-11-30] MEDS ORDERED: Ondansetron 4 MG/2 ML VIAL IVP PRN (03:56)
[2021-11-30] MEDS ORDERED: 0.9 % Sodium Chloride 1,000 ML IVC SCH (04:00)
[2021-11-30] MEDS ORDERED: Potassium Chloride Elixir 20 MEQ/15 ML UDC PO ONE (05:08)
[2021-11-30 10:48] LABS: Bacteria,Urine Few per hpf (None-Few); Bilirubin,Urine Negative (Negative); Blood,Urine Negative (Negative); Clarity,Urine Clear (Clear); Color,Urine Light-Yellow (Yellow); Glucose,Urine (UA) Normal (Normal); Ketones,Urine Negative (Negative); Leukocyte Esterase,Urine Large (Negative); Mucus,Urine Few per lpf (None-Few); Nitrite,Urine Negative (Negative); Protein,Urine Trace mg/dL (Neg-Trace); RBC,Urine 0-3 per hpf (0-3); Specific Gravity,Urine 1.024 (1.010-1.025); Squamous Epithelial Cell,Urine Few per hpf (None-Few); Urobilinogen,Urine Normal (Normal); WBC,Urine 50-100 per hpf (0-3)
[2021-11-30] MEDS: 0.9 % Sodium Chloride 1,000 ML IVC SCH (11:07)
[2021-11-30] MEDS ORDERED: Perflutren Lipid Microsphere 1.3 ML in 0.9 % Sodium Chloride 8.7 ML IVP PRN (11:07)
[2021-11-30 12:05] LABS: Hematocrit 44.7 % (35.3-44.9); Mean Corpuscular HGB Conc 33.6 g/dL (31.6-35.5); Mean Corpuscular Hemoglobin 30.8 pg (28.0-33.3); Mean Corpuscular Volume 91.8 fL (83.0-100.0); Mean Platelet Volume 11.5 fL (9.4-12.4); Platelet Count 237 K/mcL (140-400); Red Blood Count 4.87 M/mcL (3.82-4.97); Red Cell Distribution Width 13.2 % (11.5-14.5); White Blood Count 8.5 K/mcL (4.3-11.1)
[2021-11-30 12:26] LABS: Calcium 8.6 mg/dL (8.6-10.3); Potassium 3.5 mEq/L (3.5-5.1)
[2021-11-30] MEDS: Aspirin Enteric Coated 81 MG Tablet PO SCH (13:01)
[2021-11-30] MEDS ORDERED: Melatonin 3 MG TABLET PO SCH (21:00)
[2021-11-30] MEDS ORDERED: *HR* LORazepam 2 MG/ML VIAL IVP ONE (22:36)
[2021-12-01] MEDS: Ascorbic Acid 500 MG TABLET PO SCH (08:15)
[2021-12-01] MEDS: Cyanocobalamin (B-12) 1,000 MCG TABLET PO SCH (08:15)
[2021-12-01] MEDS: Aspirin Enteric Coated 81 MG Tablet PO SCH (08:16)
[2021-12-01] MEDS: 0.9 % Sodium Chloride 1,000 ML IVC SCH (08:17)
[2021-12-01 11:05] LABS: Basophils # 0.1 K/mcL (0.0-0.2); Basophils % 0.7 %; Eosinophils # 0.3 K/mcL (0.0-0.6); Eosinophils % 3.8 %; Hematocrit 43.8 % (35.3-44.9); Hemoglobin 14.7 g/dL (11.5-15.4); Immature Granulocytes % 0.2 % (0-4); Lymphocytes # 2.1 K/mcL (0.6-4.6); Lymphocytes % 25.7 %; Mean Corpuscular HGB Conc 33.6 g/dL (31.6-35.5); Mean Corpuscular Hemoglobin 31.1 pg (28.0-33.3); Mean Corpuscular Volume 92.8 fL (83.0-100.0); Mean Platelet Volume 11.3 fL (9.4-12.4); Monocytes # 0.7 K/mcL (0.0-1.3); Monocytes % 8.2 %; Platelet Count 214 K/mcL (140-400); Red Blood Count 4.72 M/mcL (3.82-4.97); Red Cell Distribution Width 13.2 % (11.5-14.5); Segmented Neutrophils % 61.4 %; White Blood Count 8.2 K/mcL (4.3-11.1)
[2021-12-01 11:26] LABS: BUN/Creatinine Ratio 29 (6-26); Blood Urea Nitrogen 31 mg/dL (8-23); Calcium 8.6 mg/dL (8.6-10.3); Carbon Dioxide 23 mEq/L (23-29); Chloride 107 mEq/L (98-107); Glucose 133 mg/dL (70-105); Osmolality,Calculated 292 (280-300); Potassium 3.4 mEq/L (3.5-5.1); Sodium 137 mEq/L (136-145); eGFR For African Americans > 60 (> 60); eGFR For Non-African Americans 50 (> 60)
[2021-12-01] MEDS: *HR* Heparin 5,000 UNIT/ML VIAL SQ SCH (20:11)
[2021-12-02] MEDS: *HR* Heparin 5,000 UNIT/ML VIAL SQ SCH (05:55)
[2021-12-02] MEDS: Aspirin Enteric Coated 81 MG Tablet PO SCH (08:18)
[2021-12-02] MEDS: Ascorbic Acid 500 MG TABLET PO SCH (08:18)
[2021-12-02] MEDS: Cyanocobalamin (B-12) 1,000 MCG TABLET PO SCH (08:18)
[2021-12-02 09:39] LABS: BUN/Creatinine Ratio 23 (6-26); Blood Urea Nitrogen 25 mg/dL (8-23); Calcium 8.5 mg/dL (8.6-10.3); Carbon Dioxide 26 mEq/L (23-29); Chloride 107 mEq/L (98-107); Glucose 89 mg/dL (70-105); Osmolality,Calculated 288 (280-300); Potassium 3.3 mEq/L (3.5-5.1); Sodium 137 mEq/L (136-145); eGFR For African Americans > 60 (> 60); eGFR For Non-African Americans 50 (> 60)
[2021-12-02] MEDS ORDERED: Potassium Chloride Elixir 20 MEQ/15 ML UDC PO ONE (10:04)
[2021-12-02 11:00] VITALS: BP 189/92; PULSE 58; TEMP 98; O2SAT 97
[2021-12-02] MEDS ORDERED: amLODIPine 5 MG TABLET PO SCH (11:15)
== END 2021-12-02 14:50 | disposition home or self-care (01) | DRG 392 ==
LOC: 3ANU 19:46 → EMEROOARM 19:46 → SUATTDRO 11-30 04:25 → 3ANU 11-30 05:10
PROVIDERS: ADMIT Student in an Organized Health Care Education/Training Program; ATTEND Internal Medicine

== ENCOUNTER 2022-07-01 07:52 | Inpatient (IN) ==
[2022-07-01] MEDS ORDERED: CeFAZolin Syr 2,000MG/20 ML 2,000 MG/20 ML SYRINGE IVPB ONE (08:17)
[2022-07-01] MEDS ORDERED: Ringers Solution, Lactated 1,000 ML IVC SCH (08:30)
[2022-07-01] MEDS ORDERED: *HR* FentaNYL (PF) 100 MCG/2 ML VIAL ONE (08:52)
[2022-07-01] MEDS ORDERED: *HR* FentaNYL (PF) 100 MCG/2 ML VIAL IVP PRN (08:52)
[2022-07-01] MEDS ORDERED: Ondansetron 4 MG/2 ML VIAL IVP PRN ×2 (08:52→10:37)
[2022-07-01] MEDS ORDERED: *HR* HYDROmorphone PF 0.5 MG/0.5 ML SYRINGE IVP PRN (08:52)
[2022-07-01] MEDS ORDERED: *HR* Rocuronium Bromide 50 MG/5 ML VIAL ONE (08:53)
[2022-07-01] MEDS ORDERED: *HR* Midazolam HCl 2 MG/2 ML VIAL ONE (08:53)
[2022-07-01] MEDS ORDERED: Lidocaine -MPF 2% 5 ML VIAL ONE (08:53)
[2022-07-01] MEDS ORDERED: Ondansetron 4 MG/2 ML VIAL ONE (08:53)
[2022-07-01] MEDS ORDERED: *HR* Succinylcholine 200 MG/10 ML VIAL IVP ONE (08:53)
[2022-07-01] MEDS ORDERED: EPHEDrine 50 MG/ML VIAL ONE (08:53)
[2022-07-01] MEDS ORDERED: Lidocaine HCL 4 ML Topical Solution (Laryng-O-Jet Kit Sterile Pak) TP ONE (08:53)
[2022-07-01] MEDS ORDERED: *HR* Propofol 200 MG/20 ML VIAL IVP ONE (08:53)
[2022-07-01] MEDS ORDERED: Albuterol 2.5 MG/3 ML NEBULIZER IH ONE (08:54)
[2022-07-01] MEDS ORDERED: Naloxone 0.4 MG/ML INJ IVP PRN (10:28)
[2022-07-01] MEDS ORDERED: Acetaminophen 325 MG TABLET PO PRN (10:28)
[2022-07-01] MEDS ORDERED: 0.9 % Sodium Chloride 1,000 ML IVC ONE (10:35)
[2022-07-01] MEDS: amLODIPine 5 MG TABLET PO SCH (12:08)
[2022-07-01] MEDS: Acetaminophen 325 MG TABLET PO PRN ×2 (13:10→20:32)
[2022-07-01 13:13] LABS: VBG HCO3 25 mEq/L (21-27); VBG PCO2 45 mmHg (41-51); VBG PH 7.35 pH Units (7.32-7.42); VBG PO2 186 mmHg (25-50)
[2022-07-01 13:13] LABS: Hematocrit 37.4 % (35.3-44.9); Hemoglobin 12.4 g/dL (11.5-15.4); Mean Corpuscular HGB Conc 33.2 g/dL (31.6-35.5); Mean Corpuscular Hemoglobin 31.2 pg (28.0-33.3); Platelet Count 263 K/mcL (140-400); Red Blood Count 3.98 M/mcL (3.82-4.97); White Blood Count 13.6 K/mcL (4.3-11.1)
[2022-07-01 13:37] LABS: Calcium 9.1 mg/dL (8.6-10.3); Magnesium 1.9 mg/dL (1.6-2.6)
[2022-07-01 14:00] LABS: Bilirubin,Urine Negative (Negative); Blood,Urine Negative (Negative); Clarity,Urine Clear (Clear); Color,Urine Light-Yellow (Yellow); Glucose,Urine (UA) Normal (Normal); Ketones,Urine 40 mg/dL (Negative); Leukocyte Esterase,Urine Moderate (Negative); Nitrite,Urine Negative (Negative); Protein,Urine Trace mg/dL (Neg-Trace); Specific Gravity,Urine 1.015 (1.010-1.025); Urobilinogen,Urine Normal (Normal)
[2022-07-01 14:01] LABS: Bacteria,Urine Few per hpf (None-Few); Mucus,Urine Few per lpf (None-Few); RBC,Urine 0-3 per hpf (0-3); Squamous Epithelial Cell,Urine Few per hpf (None-Few)
[2022-07-01] MEDS: 0.9 % Sodium Chloride 1,000 ML IVC SCH (14:02)
[2022-07-01 14:14] LABS: Sodium, Urine 30.6 mEq/L
[2022-07-01] MEDS: *HR* Heparin 5,000 UNIT/ML VIAL SQ SCH (17:29)
[2022-07-01 18:16] LABS: C.difficile Toxin A/B Gene PCR Not detected (Not detect); Campylobacter by PCR Not detected (Not detect); Plesiomonas shigelloides PCR Not detected (Not detect); Salmonella PCR Not detected (Not detect); Vibrio PCR Not detected (Not detect); Vibrio cholerae PCR Not detected (Not detect); Yersinia enterocolitica PCR Not detected (Not detect)
[2022-07-01 18:17] LABS: Adenovirus F 40/41 PCR Not detected (Not detect); Astrovirus PCR Not detected (Not detect); Cryptosporidium by PCR Not detected (Not detect); Cyclospora cayetanensis PCR Not detected (Not detect); Entamoeba histolytica PCR Not detected (Not detect); Enteroaggregative E.coli(EAEC) Not detected (Not detect); Enteropathogenic E.coli(EPEC) Not detected (Not detect); Enterotoxigenic E.coli (ETEC) Not detected (Not detect); Giardia lamblia PCR Not detected (Not detect); Norovirus GI/GII PCR Not detected (Not detect); Rotavirus A PCR Not detected (Not detect); Sapovirus PCR Not detected (Not detect); Shig/EnteroinvasiveE coli EIEC Not detected (Not detect); Shigalike tox-prod E coli STEC DETECTED (Not detect)
[2022-07-02] MEDS: 0.9 % Sodium Chloride 1,000 ML IVC SCH ×3 (02:22→11:39)
[2022-07-02] MEDS: Acetaminophen 325 MG TABLET PO PRN (03:14)
[2022-07-02 04:18] LABS: Calcium 8.3 mg/dL (8.6-10.3); Potassium 3.3 mEq/L (3.5-5.1)
[2022-07-02] MEDS: *HR* Heparin 5,000 UNIT/ML VIAL SQ SCH ×2 (05:35→18:17)
[2022-07-02] MEDS ORDERED: cloNIDine HCL 0.1 MG TABLET PO PRN (07:47)
[2022-07-02] MEDS: amLODIPine 5 MG TABLET PO SCH (08:13)
[2022-07-02] MEDS: Ascorbic Acid 500 MG TABLET PO SCH (08:14)
[2022-07-02] MEDS: Aspirin Enteric Coated 81 MG Tablet PO SCH (08:15)
[2022-07-02] MEDS: Cyanocobalamin (B-12) 1,000 MCG TABLET PO SCH (08:29)
[2022-07-02] MEDS: *HR* HYDROcodone/Acet 5/325 mg TABLET PO PRN ×3 (09:35→21:37)
[2022-07-02] MEDS: Melatonin 3 MG TABLET PO PRN (21:57)
[2022-07-03 05:08] LABS: Calcium 8.3 mg/dL (8.6-10.3); Potassium 3.2 mEq/L (3.5-5.1)
[2022-07-03] MEDS: *HR* Heparin 5,000 UNIT/ML VIAL SQ SCH ×2 (05:41→19:25)
[2022-07-03] MEDS: amLODIPine 5 MG TABLET PO SCH (09:03)
[2022-07-03] MEDS: Cholecalciferol (D-3) 1,000 UNIT (25MCG) TABLET PO SCH (09:03)
[2022-07-03] MEDS: Ascorbic Acid 500 MG TABLET PO SCH (09:13)
[2022-07-03] MEDS: cloNIDine HCL 0.1 MG TABLET PO SCH ×2 (09:14→21:29)
[2022-07-03] MEDS: Aspirin Enteric Coated 81 MG Tablet PO SCH (09:14)
[2022-07-03] MEDS: Cyanocobalamin (B-12) 1,000 MCG TABLET PO SCH (09:14)
[2022-07-03] MEDS ORDERED: Clindamycin 900 MG/50 ML 900 MG/50 ML IV.SOLN IVPB ONE (09:42)
[2022-07-03] MEDS ORDERED: Ringers Solution, Lactated 1,000 ML IVC SCH (09:45)
[2022-07-03] MEDS ORDERED: Albuterol 2.5 MG/3 ML NEBULIZER IH ONE (10:09)
[2022-07-03] MEDS ORDERED: Lidocaine HCL 4 ML Topical Solution (Laryng-O-Jet Kit Sterile Pak) TP ONE (10:13)
[2022-07-03] MEDS ORDERED: Lidocaine -MPF 2% 5 ML VIAL ONE (10:13)
[2022-07-03] MEDS ORDERED: *HR* Succinylcholine 200 MG/10 ML VIAL IVP ONE (10:13)
[2022-07-03] MEDS ORDERED: *HR* Propofol 200 MG/20 ML VIAL IVP ONE (10:13)
[2022-07-03] MEDS ORDERED: *HR* FentaNYL (PF) 100 MCG/2 ML VIAL ONE ×2 (10:13→12:50)
[2022-07-03] MEDS ORDERED: ROPIVACAINE/PF/NS 0.25% 1 EACH SYRINGE INTRAART ONE (10:18)
[2022-07-03] MEDS ORDERED: Vancomycin 1,000 MG VIAL ONE (10:40)
[2022-07-03] MEDS ORDERED: Ondansetron 4 MG/2 ML VIAL ONE (11:24)
[2022-07-03] MEDS ORDERED: EPHEDrine 50 MG/ML VIAL ONE (11:29)
[2022-07-03] MEDS ORDERED: Albumin Human 5% 12.5 GM/250 ML IV.SOLN ONE (11:34)
[2022-07-03] MEDS ORDERED: Tranexamic Acid 1,000 MG/10 ML VIAL ONE (11:42)
[2022-07-03] MEDS ORDERED: *HR* Rocuronium Bromide 50 MG/5 ML VIAL ONE (12:22)
[2022-07-03] MEDS ORDERED: Sugammadex Sodium 200 MG/2 ML VIAL IV ONE (12:46)
[2022-07-03] MEDS: CeFAZolin 2,000 MG/120 ML BAG IVPB SCH ×2 (16:16→21:29)
[2022-07-03] MEDS: *HR* OxyCODONE Immed Rel 5 MG TABLET PO PRN (16:26)
[2022-07-03] MEDS: *HR* HYDROcodone/Acet 5/325 mg TABLET PO PRN (21:29)
[2022-07-03] MEDS: Melatonin 3 MG TABLET PO PRN (21:29)
[2022-07-04] MEDS: *HR* OxyCODONE Immed Rel 5 MG TABLET PO PRN (02:03)
[2022-07-04 05:29] LABS: Basophils % 0.1 %; Hematocrit 29.9 % (35.3-44.9); Immature Granulocytes % 3.2 % (0-4); Lymphocytes % 7.1 %; Mean Corpuscular HGB Conc 33.8 g/dL (31.6-35.5); Mean Corpuscular Volume 91.7 fL (83.0-100.0); Mean Platelet Volume 10.8 fL (9.4-12.4); Monocytes # 0.8 K/mcL (0.0-1.3); Monocytes % 5.4 %; Neutrophils # 11.9 K/mcL (1.6-8.9); Platelet Count 272 K/mcL (140-400); Red Blood Count 3.26 M/mcL (3.82-4.97); Red Cell Distribution Width 12.7 % (11.5-14.5); Segmented Neutrophils % 84.2 %; White Blood Count 14.2 K/mcL (4.3-11.1)
[2022-07-04 05:30] LABS: Hemoglobin 10.1 g/dL (11.5-15.4)
[2022-07-04] MEDS: *HR* Heparin 5,000 UNIT/ML VIAL SQ SCH (06:11)
[2022-07-04 06:42] LABS: Calcium 8.4 mg/dL (8.6-10.3); Magnesium 1.2 mg/dL (1.6-2.6); Potassium 3.6 mEq/L (3.5-5.1)
[2022-07-04 06:59] VITALS: TEMP 98.4
[2022-07-04] MEDS: Cholecalciferol (D-3) 1,000 UNIT (25MCG) TABLET PO SCH (08:51)
[2022-07-04] MEDS: Cyanocobalamin (B-12) 1,000 MCG TABLET PO SCH (08:51)
[2022-07-04] MEDS: Ascorbic Acid 500 MG TABLET PO SCH (08:52)
[2022-07-04] MEDS: cloNIDine HCL 0.1 MG TABLET PO SCH (08:52)
[2022-07-04] MEDS ORDERED: NIFEdipine XL (24 HR) 60 MG TAB.ER.24 PO SCH (09:00)
[2022-07-04] MEDS ORDERED: Aspirin 81 MG TAB.CHEW PO SCH (09:00)
[2022-07-04] MEDS ORDERED: *HR* OxyCODONE/APAP 7.5/325 TABLET PO PRN (09:03)
[2022-07-04 11:10] VITALS: BP 167/72; PULSE 65; O2SAT 95
[2022-07-04] MEDS ORDERED: Gabapentin 100 MG CAPSULE PO SCH (15:00)
== END 2022-07-04 18:15 | disposition home or self-care (01) | DRG 483 ==
LOC: SDCAOSI 07:52 → 4WAOSI 10:17
PROVIDERS: ADMIT Orthopaedic Surgery; ATTEND Orthopaedic Surgery